=== PATIENT | male | born 1930 | race Caucasian/White ===

== ENCOUNTER 2017-03-13 18:31 | Inpatient (IN) | payer MEDICARE, BC ==
[2017-03-13] MEDS ORDERED: Sodium Chloride 0.9% 10 ML Syringe FLUSH PRN (18:54)
[2017-03-13] MEDS ORDERED: Sodium Chloride 0.9% 2.5 ML Syringe FLUSH PRN (18:54)
[2017-03-13] MEDS ORDERED: Ondansetron 4 MG/2 ML SDV IVPUSH ONE (18:54)
[2017-03-13] MEDS ORDERED: Sodium Chloride 0.9% 1,000 ML IV SCH (19:00)
--- NOTE | 2017-03-13 19:00 | EDM.PDOC ---
ED HPI GENERAL MEDICAL PROBLEM - General Chief Complaint: Cardiovascular Problem Stated Complaint: FLU SYMPTOMS Time Seen by Provider: 03/13/17 18:41 - History of Present Illness INITIAL COMMENTS - FREE TEXT/NARRATIVE: HISTORY AND PHYSICAL: History of present illness: The patient is an 86-year-old male who follows at [facility] as well as with a dietary tech at [facility] with a history of CABG ASHD diabetes hypertension and deficiency anemia and hypercholesterolemia and presents via EMS with complaints of 24 hours of feeling rundown generalized weakness and "flulike symptoms". The patient and are the historian and they state state that he seems to feel fine yesterday during the day and that the symptoms started last evening with generalized malaise some nausea and several episodes of vomiting and some left-sided abdominal pain. He has been passing his urine but it is been very dark in color and he says it always hurts to pass urine that is not new. His last bowel movement was day before yesterday and it was very hard and he has a history of intermittent constipation. He denies any chest pain or shortness of breath and has no cough that is new or upper respiratory symptoms. The patient has a history of chronic lower extremity edema for which he takes Bumetamide 1 mg daily And the states that his lower extremities are not discernibly more edematous than usual and he always has some edema of bilateral hands again the states this is not necessarily new or different. The patient has a chronic umbilical hernia which he says is not different in size for more tender than usual. The patient denies any recent falls dizziness or lightheadedness but the states that today he was really unable to get up and transfer due to the generalized weakness. The patient denies any head neck or back pain and has no extremity complaints per se. The patient has been trying to take fluids but he has not taken very much in the last 24 hours. The patient denies any falls with this generalized weakness. Please note that the patient also has a history of a defibrillator that is in place. Review of systems: As per history of present illness and below otherwise all systems reviewed and negative. Past medical history: As per history of present illness and as reviewed below otherwise noncontributory. Surgical history: As per history of present illness and as reviewed below otherwise noncontributory. Social history: No reported history of drug or alcohol abuse. Family history: As per history of present illness and as reviewed below otherwise noncontributory. Physical exam: General: Well-developed overweight male who is nontoxic and is mildly hard of hearing. Vital signs been noted by me. HEENT: Atraumatic, normocephalic, pupils reactive, negative for conjunctival pallor or scleral icterus, mucous membranes very dry, throat clear, neck supple , nontender, trachea midline. Lungs: Clear to auscultation, breath sounds equal bilaterally, chest nontender.No work of breathing or sensory muscle use. Defibrillator is appreciated in the chest wall. Heart: S1S2, regular, negative for clicks, rubs, or JVD. Abdomen: Soft, nondistended, bowel sounds are hypoactive. There is a soft nontender umbilical hernia appreciated which the patient states is not enlarged or different than usual. There is some mild tenderness to deep palpation along the left side of the upper abdomen without rebound or guarding and there is also some right sided lower abdominal discomfort which is mild on palpation and there is no rebound or guarding. Negative for masses or hepatosplenomegaly. Negative for costovertebral tenderness. Pelvis: Stable nontender. Genitourinary: Deferred. Rectal: Deferred. Extremities: Atraumatic, negative for cords or calf pain. Neurovascular unremarkable.The patient has brawny edema to his knees with chronic skin changes bilaterally right greater than left, which the states is not new or different and the right leg is always slightly bigger than the left due to the vein harvest from that leg. Neuro: Awake, alert, oriented. Cranial nerves II through XII unremarkable. sensory unremarkable throughout. Exam nonfocal. Upper extremities have a strength 4/5 in the patient is able to utilize his arms to lift himself in bed but his lower extremities are 2-3/5 and he has difficulty raising his legs or bending his knees without any assistance. Back: There are no midline step-offs tenderness defects of the thoracic or lumbar spine no CVA tenderness or posterior rib tenderness and no soft tissue changes. Diagnostics: EKG CBC CMP amylase lipase BNP lactic acid troponin UA urine culture blood cultures 2 chest x-ray CT scan of the abdomen and pelvis Please note that today's EKG was compared to one performed on May 03, 2016 Therapeutics: IV O2 monitor gentle IV fluids Zofran Levaquin All testing results were discussed with the family at bedside as the patient is asleep. According to the family they're not telling me that his symptoms have been ongoing for the last 3 or more days with generalized weakness poor by mouth intake and inability to get up and move around. I've advised him of all the testing results and the plan for admission. 2110: Case was discussed with our hospitalist ; he requests a dose of Levaquin 750 mg be given an admission as an inpatient. Impression: Pneumonia and dehydration Definitive disposition and diagnosis as appropriate pending reevaluation and review of above. - Related Data Allergies Allergy/AdvReac Type Severity Reaction Status Date / Time No Known Allergies Allergy Verified 03/13/17 18:54 Home Meds: Home Meds Bumetanide [Bumex] 1 tab PO DAILY 08/26/14 [History] Carvedilol 1 tab PO BID 08/26/14 [History] Insulin Aspart [Novolog Flexpen] 0 units SUBCUT ASDIRECTED 08/26/14 [History] Insulin Glarg,Human.Rec.Analog [Lantus] 40 unit SUBCUT DAILY 08/26/14 [History] Rosuvastatin [Crestor] 1 tab PO DAILY 08/26/14 [History] Aspirin [Halfprin] 81 mg PO BRK 03/13/17 [History] Losartan [Cozaar] 50 mg PO DAILY 03/13/17 [History] Past Medical History HEENT History: Reports: Hard of Hearing Cardiovascular History: Reports: Automatic Implantable Cardioverter Defibrillators, High Cholesterol, Hypertension Respiratory History: Reports: None Gastrointestinal History: Reports: Other (See Below) Other Gastrointestinal History: "Water on the belly" Genitourinary History: Reports: None Musculoskeletal History: Reports: Arthritis Neurological History: Reports: None Psychiatric History: Reports: None Endocrine/Metabolic History: Reports: Diabetes, Type II Hematologic History: Reports: None Immunologic History: Reports: None Oncologic (Cancer) History: Reports: None Dermatologic History: Reports: None - Infectious Disease History Infectious Disease History: Reports: None - Past Surgical History Musculoskeletal Surgical History: Reports: Other (See Below) Social & Family History - Family History Family Medical History: Noncontributory - Tobacco Use Smoking Status *Q: Never Smoker Second Hand Smoke Exposure: No - Caffeine Use Caffeine Use: Reports: Coffee - Alcohol Use Days Per Week of Alcohol Use: 0 - Recreational Drug Use Recreational Drug Use: No ED ROS GENERAL - Review of Systems Review Of Systems: ROS reveals no pertinent complaints other than HPI. ED EXAM, GENERAL - Physical Exam Exam: See Below (See dictation) Course - Vital Signs Last Recorded V/S: Last Vital Signs Temp 37.1 C 03/13/17 20:19 Pulse 64 03/13/17 20:19 Resp 20 03/13/17 20:19 BP 113/49 L 03/13/17 20:19 Pulse Ox 95 03/13/17 20:19 - Orders/Labs/Meds Orders: Active Orders 24 hr Category Date Time Status Patient Status [ADT] Stat ADT 03/13/17 21:14 Ordered Cardiac Monitoring [RC] . DIRECTED Care 03/13/17 18:53 Active EKG Documentation Completion [RC] STAT Care 03/13/17 18:53 Active Oxygen Therapy, ED [RC] ASDIRECTED Care 03/13/17 18:53 Active Pulse Oximetry [RC] ASDIRECTED Care 03/13/17 18:53 Active Abdomen Pelvis wo Cont [CT] Stat Exams 03/13/17 19:48 Taken Chest 1V Frontal [CR] Stat Exams 03/13/17 18:53 Taken CULTURE BLOOD [BC] Stat Lab 03/13/17 Ordered CULTURE BLOOD [BC] Stat Lab 03/13/17 19:04 Received CULTURE URINE [RM] Stat Lab 03/13/17 19:30 Received Levofloxacin/Dextrose 5%-Water [Levaquin in D5W 750 MG/ Med 03/13/17 21:14 Ordered 150 ML] 750 mg Premix Bag 1 bag IV ONETIME Sodium Chloride 0.9% [Normal Saline] 1,000 ml Med 03/13/17 19:00 Active IV ASDIRECTED Sodium Chloride 0.9% [Saline Flush] Med 03/13/17 18:54 Active 10 ml FLUSH ASDIRECTED PRN Sodium Chloride 0.9% [Saline Flush] Med 03/13/17 18:54 Active 2.5 ml FLUSH ASDIRECTED PRN Blood Culture x2 Reflex Set [OM.PC] Stat Oth 03/13/17 18:53 Ordered Saline Lock Insert [OM.PC] Stat Oth 03/13/17 18:53 Ordered Medication Orders Sodium Chloride (Normal Saline) 1,000 mls @ 83 mls/hr IV ASDIRECTED HUAN Last Admin: 03/13/17 19:12 Dose: 83 mls/hr Sodium Chloride (Saline Flush) 10 ml FLUSH ASDIRECTED PRN PRN Reason: Keep Vein Open Sodium Chloride (Saline Flush) 2.5 ml FLUSH ASDIRECTED PRN PRN Reason: Keep Vein Open Labs: Laboratory Tests 03/13/17 03/13/17 03/13/17 Range/Units 19:04 19:04 19:04 WBC 9.61 (4.0-11.0) K/uL RBC 3.64 L (4.50-5.90) M/uL Hgb 11.4 L (13.0-17.0) g/dL Hct 35.0 L (38.0-50.0) % MCV 96.2 (80.0-98.0) fL MCH 31.3 (27.0-32.0) pg MCHC 32.6 (31.0-37.0) g/dL RDW Std Deviation 51.9 (28.0-62.0) fl RDW Coeff of Anjana 15 (11.0-15.0) % Plt Count 157 (150-400) K/uL MPV 10.20 (7.40-12.00) fL Neut % (Auto) 86.6 H (48.0-80.0) % Lymph % (Auto) 4.5 L (16.0-40.0) % Amador % (Auto) 8.7 (0.0-15.0) % Eos % (Auto) 0.1 (0.0-7.0) % Baso % (Auto) 0.1 (0.0-1.5) % Neut # (Auto) 8.3 H (1.4-5.7) K/uL Lymph # (Auto) 0.4 L (0.6-2.4) K/uL Amador # (Auto) 0.8 (0.0-0.8) K/uL Eos # (Auto) 0.0 (0.0-0.7) K/uL Baso # (Auto) 0.0 (0.0-0.1) K/uL Nucleated RBC % 0.0 /100WBC Nucleated RBCs # 0 K/uL Lactate 1.4 (0.20-2.00) mmol/L Sodium 133 L (136-146) mmol/L Potassium 4.4 (3.5-5.1) mmol/L Chloride 103 (98-110) mmol/L Carbon Dioxide 21 (21-31) mmol/L BUN 34 H (6.0-23.0) mg/dL Creatinine 1.9 H (0.6-1.5) mg/dL Est Cr Clr Drug Dosing 27.91 mL/min Estimated GFR (MDRD) 33.8 ml/min Glucose 147 H (60-110) mg/dL Calcium 8.5 L (8.8-10.8) mg/dL Total Bilirubin 1.1 (0.1-1.5) mg/dL AST 23 (5-40) IU/L ALT 12 (8-54) IU/L Alkaline Phosphatase 103 (40-150) Troponin I (0.0-0.29) NG/ML B-Natriuretic Peptide (<100) PG/ML Total Protein 6.8 (6.0-8.0) g/dL Albumin 3.5 (3.4-4.8) g/dL Globulin 3.3 (2.0-3.5) g/dL Albumin/Globulin Ratio 1.1 L (1.3-2.8) Amylase 24 (10-90) U/L Lipase < 8 (7-80) U/L Urine Color Urine Appearance Urine pH (5.0-8.0) Ur Specific Wildwood (1.001-1.035) Urine Protein (NEGATIVE) mg/dL Urine Glucose (UA) (NEGATIVE) mg/dL Urine Ketones (NEGATIVE) mg/dL Urine Occult Blood (NEGATIVE) Urine Nitrite (NEGATIVE) Urine Bilirubin (NEGATIVE) Urine Urobilinogen (<2.0) EU/dL Ur Leukocyte Esterase (NEGATIVE) Urine RBC (0-2/HPF) Urine WBC (0-5/HPF) Ur Epithelial Cells (NONE-FEW) Amorphous Sediment (NEGATIVE) Urine Bacteria (NEGATIVE) Hyaline Casts (0-2/LPF) Urine Mucus (NONE-MOD) 03/13/17 03/13/17 03/13/17 Range/Units 19:04 19:04 19:30 WBC (4.0-11.0) K/uL RBC (4.50-5.90) M/uL Hgb (13.0-17.0) g/dL Hct (38.0-50.0) % MCV (80.0-98.0) fL MCH (27.0-32.0) pg MCHC (31.0-37.0) g/dL RDW Std Deviation (28.0-62.0) fl RDW Coeff of Anjana (11.0-15.0) % Plt Count (150-400) K/uL MPV (7.40-12.00) fL Neut % (Auto) (48.0-80.0) % Lymph % (Auto) (16.0-40.0) % Amador % (Auto) (0.0-15.0) % Eos % (Auto) (0.0-7.0) % Baso % (Auto) (0.0-1.5) % Neut # (Auto) (1.4-5.7) K/uL Lymph # (Auto) (0.6-2.4) K/uL Amador # (Auto) (0.0-0.8) K/uL Eos # (Auto) (0.0-0.7) K/uL Baso # (Auto) (0.0-0.1) K/uL Nucleated RBC % /100WBC Nucleated RBCs # K/uL Lactate (0.20-2.00) mmol/L Sodium (136-146) mmol/L Potassium (3.5-5.1) mmol/L Chloride (98-110) mmol/L Carbon Dioxide (21-31) mmol/L BUN (6.0-23.0) mg/dL Creatinine (0.6-1.5) mg/dL Est Cr Clr Drug Dosing mL/min Estimated GFR (MDRD) ml/min Glucose (60-110) mg/dL Calcium (8.8-10.8) mg/dL Total Bilirubin (0.1-1.5) mg/dL AST (5-40) IU/L ALT (8-54) IU/L Alkaline Phosphatase (40-150) Troponin I < 0.10 (0.0-0.29) NG/ML B-Natriuretic Peptide 942 H (<100) PG/ML Total Protein (6.0-8.0) g/dL Albumin (3.4-4.8) g/dL Globulin (2.0-3.5) g/dL Albumin/Globulin Ratio (1.3-2.8) Amylase (10-90) U/L Lipase (7-80) U/L Urine Color YELLOW Urine Appearance CLEAR Urine pH 5.5 (5.0-8.0) Ur Specific [place] 1.020 (1.001-1.035) Urine Protein TRACE (NEGATIVE) mg/dL Urine Glucose (UA) NEGATIVE (NEGATIVE) mg/dL Urine Ketones NEGATIVE (NEGATIVE) mg/dL Urine Occult Blood SMALL H (NEGATIVE) Urine Nitrite NEGATIVE (NEGATIVE) Urine Bilirubin NEGATIVE (NEGATIVE) Urine Urobilinogen 0.2 (<2.0) EU/dL Ur Leukocyte Esterase NEGATIVE (NEGATIVE) Urine RBC 0-2 (0-2/HPF) Urine WBC 1-3 (0-5/HPF) Ur Epithelial Cells OCCASIONAL (NONE-FEW) Amorphous Sediment FEW (NEGATIVE) Urine Bacteria FEW (NEGATIVE) Hyaline Casts 0-2 (0-2/LPF) Urine Mucus FEW (NONE-MOD) Meds: Medications Generic Name Dose Route Start Last Admin Trade Name Freq PRN Reason Stop Dose Admin Sodium Chloride 1,000 mls @ 83 mls/hr 03/13/17 19:00 03/13/17 19:12 Normal Saline IV 83 mls/hr ASDIRECTED HUAN Administration Sodium Chloride 10 ml 03/13/17 18:54 Saline Flush FLUSH ASDIRECTED PRN Keep Vein Open Sodium Chloride 2.5 ml 03/13/17 18:54 Saline Flush FLUSH ASDIRECTED PRN Keep Vein Open Discontinued Medications Generic Name Dose Route Start Last Admin Trade Name Freq PRN Reason Stop Dose Admin Ondansetron HCl 4 mg 03/13/17 18:54 03/13/17 19:12 Zofran IVPUSH 03/13/17 18:55 4 mg ONETIME ONE Administration Departure - Departure Time of Disposition: 21:17 Disposition: Admitted As Inpatient 66 Condition: Fair Clinical Impression: Dehydration Pneumonia Qualifiers: Pneumonia type: due to unspecified organism Laterality: right Lung location: middle lobe of lung Qualified Code(s): J18.1 - Lobar pneumonia, unspecified organism Forms: ED Department Discharge - My Orders Last 24 Hours: My Active Orders 03/13/17 CULTURE BLOOD [BC] Stat 03/13/17 18:53 Cardiac Monitoring [RC] . DIRECTED EKG Documentation Completion [RC] STAT Oxygen Therapy, ED [RC] ASDIRECTED Pulse Oximetry [RC] ASDIRECTED Chest 1V Frontal [CR] Stat Blood Culture x2 Reflex Set [OM.PC] Stat Saline Lock Insert [OM.PC] Stat 03/13/17 18:54 Sodium Chloride 0.9% [Saline Flush] 10 ml FLUSH ASDIRECTED PRN Sodium Chloride 0.9% [Saline Flush] 2.5 ml FLUSH ASDIRECTED PRN 03/13/17 19:00 Sodium Chloride 0.9% [Normal Saline] 1,000 ml IV ASDIRECTED 03/13/17 19:04 CULTURE BLOOD [BC] Stat 03/13/17 19:30 CULTURE URINE [RM] Stat 03/13/17 19:48 Abdomen Pelvis wo Cont [CT] Stat 03/13/17 21:14 Patient Status [ADT] Stat Levofloxacin/Dextrose 5%-Water [Levaquin in D5W 750 MG/150 ML] 750 mg Premix Bag 1 bag IV ONETIME - Assessment/Plan Last 24 Hours: My Active Orders 03/13/17 CULTURE BLOOD [BC] Stat 03/13/17 18:53 Cardiac Monitoring [RC] . DIRECTED EKG Documentation Completion [RC] STAT Oxygen Therapy, ED [RC] ASDIRECTED Pulse Oximetry [RC] ASDIRECTED Chest 1V Frontal [CR] Stat Blood Culture x2 Reflex Set [OM.PC] Stat Saline Lock Insert [OM.PC] Stat 03/13/17 18:54 Sodium Chloride 0.9% [Saline Flush] 10 ml FLUSH ASDIRECTED PRN Sodium Chloride 0.9% [Saline Flush] 2.5 ml FLUSH ASDIRECTED PRN 03/13/17 19:00 Sodium Chloride 0.9% [Normal Saline] 1,000 ml IV ASDIRECTED 03/13/17 19:04 CULTURE BLOOD [BC] Stat 03/13/17 19:30 CULTURE URINE [RM] Stat 03/13/17 19:48 Abdomen Pelvis wo Cont [CT] Stat 03/13/17 21:14 Patient Status [ADT] Stat Levofloxacin/Dextrose 5%-Water [Levaquin in D5W 750 MG/150 ML] 750 mg Premix Bag 1 bag IV ONETIME
[2017-03-13 19:38] LABS: CHLORIDE,CL 103 mmol/L (98-110); SODIUM,NA 133 mmol/L (136-146)
[2017-03-13] MEDS ORDERED: Levofloxacin/Dextrose 5%-Water 750 MG in Premix Bag 1 BAG IV ONE (21:14)
[2017-03-13] MEDS ORDERED: Levofloxacin/Dextrose 5%-Water 150 ML IV ONE (21:17)
--- NOTE | 2017-03-13 22:08 | PCM.HP ---
H&P History of Present Illness - General Date of Service: 03/13/17 Admit Problem/Dx: Admission Diagnosis/Problem Admission Diagnosis/Problem Pneumonia Source of Information: Patient, Family, Provider, RN - History of Present Illness Initial Comments - Free Text/Narative: He presented to the ED today with complaint of weakness and increased confusion. His states that although he has never been formally diagnosed as having dementia, he has periods of confusion and he has trouble with memory. His thinks that he had a fever at home.He vomited yesterday. - Related Data Allergies/Adverse Reactions: Allergies Allergy/AdvReac Type Severity Reaction Status Date / Time No Known Allergies Allergy Verified 03/13/17 18:54 Home Medications: Home Meds Bumetanide [Bumex] 1 tab PO DAILY 08/26/14 [History] Carvedilol 1 tab PO BID 08/26/14 [History] Insulin Aspart [Novolog Flexpen] 0 units SUBCUT ASDIRECTED 08/26/14 [History] Insulin Glarg,Human.Rec.Analog [Lantus] 40 unit SUBCUT DAILY 08/26/14 [History] Rosuvastatin [Crestor] 1 tab PO DAILY 08/26/14 [History] Aspirin [Halfprin] 81 mg PO BRK 03/13/17 [History] Losartan [Cozaar] 50 mg PO DAILY 03/13/17 [History] Past Medical History HEENT History: Reports: Hard of Hearing Cardiovascular History: Reports: Automatic Implantable Cardioverter Defibrillators, High Cholesterol, Hypertension Respiratory History: Reports: None Gastrointestinal History: Reports: Other (See Below) Other Gastrointestinal History: "Water on the belly" Genitourinary History: Reports: None Musculoskeletal History: Reports: Arthritis Neurological History: Reports: None Psychiatric History: Reports: None Endocrine/Metabolic History: Reports: Diabetes, Type II Hematologic History: Reports: None Immunologic History: Reports: None Oncologic (Cancer) History: Reports: None Dermatologic History: Reports: None - Infectious Disease History Infectious Disease History: Reports: None - Past Surgical History Musculoskeletal Surgical History: Reports: Other (See Below) Social & Family History - Family History Family Medical History: Noncontributory - Tobacco Use Smoking Status *Q: Never Smoker Second Hand Smoke Exposure: No - Caffeine Use Caffeine Use: Reports: Coffee - Alcohol Use Days Per Week of Alcohol Use: 0 Alcohol Use in Last Twelve Months: No - Recreational Drug Use Recreational Drug Use: No H&P Review of Systems - Review of Systems: Review Of Systems: See Below General: Reports: Fever, Chills Pulmonary: Reports: Cough (mild) Cardiovascular: Denies: Chest Pain, Palpitations Gastrointestinal: Reports: Abdominal Pain (some pain with palpation but no pain otherwise). Denies: Anorexia, Black Stool, Bloody Stool, Hematemesis, Hematochezia, Nausea, Stool Incontinence, Vomiting Genitourinary: Reports: Dysuria. Denies: Hematuria Skin: Denies: Jaundice Psychiatric: Denies: Confusion, Depression Neurological: Reports: Confusion Exam - Exam Exam: See Below - Vital Signs Vital Signs: Last Vital Signs Temp 98.7 F 03/13/17 21:32 Pulse 60 03/13/17 21:32 Resp 20 03/13/17 21:32 BP 123/45 L 03/13/17 21:32 Pulse Ox 97 03/13/17 21:32 Weight: 135.5 kg - Exam General: Alert, Cooperative HEENT: EOMI (slight right eyelid ptosis) Lungs: Clear to Auscultation, Normal Respiratory Effort Cardiovascular: Regular Rate, Regular Rhythm. No: Systolic Murmur, Diastolic Murmur Abdomen: Soft, Tenderness (mild lower diffuse abdominal tenderness). No: Distention (Male) Exam: Normal Inspection. No: Circumcised Rectal (Males) Exam: Deferred Extremities: Edema, Other (marked skin thickening and discoloration c/w chronic venous stasis) Neurological: Normal Speech Neuro Extensive - Mental Status: Alert, Normal Mood/Affect Neuro Extensive - Motor, Sensory, Reflexes: No: Expressive Aphasia, Facial palsy (L), Facial Palsy (R), Hemeplagia (R), Hemeplagia (L) Psychiatric: Alert, Normal Affect. No: Depressed, Agitated - Patient Data Result Diagrams: 03/13/17 19:04 03/13/17 19:04 *Q Meaningful Use (ADM) - VTE *Q VTE Criteria *Q: - Stroke *Q Stroke Criteria *Q: - AMI *Q AMI Criteria *Q: - Problem List (1) Pneumonia SNOMED Code(s): 114577255 ICD Code: J18.9 - PNEUMONIA, UNSPECIFIED ORGANISM Status: Acute Current Visit: Yes Qualifiers: Pneumonia type: due to unspecified organism Laterality: right Lung location: middle lobe of lung Qualified Code(s): J18.1 - Lobar pneumonia, unspecified organism Problem List Initiated/Reviewed/Updated: Yes Orders Last 24hrs: Medication Orders Sodium Chloride (Normal Saline) 1,000 mls @ 83 mls/hr IV ASDIRECTED HUAN Last Admin: 03/13/17 19:12 Dose: 83 mls/hr Levofloxacin/Dextrose 750 mg/ (Premix) 150 mls @ 100 mls/hr IV ONETIME ONE Stop: 03/13/17 22:43 Last Admin: 03/13/17 21:23 Dose: 100 mls/hr Sodium Chloride (Saline Flush) 10 ml FLUSH ASDIRECTED PRN PRN Reason: Keep Vein Open Sodium Chloride (Saline Flush) 2.5 ml FLUSH ASDIRECTED PRN PRN Reason: Keep Vein Open Assessment/Plan Comment:: CXR: cardiomegaly; right sided infiltrate
[2017-03-13] MEDS ORDERED: Morphine 10 MG/ML Syringe IVPUSH PRN (22:16)
[2017-03-13] MEDS ORDERED: Ondansetron 4 MG Tab.DIS PO PRN (22:16)
[2017-03-13] MEDS ORDERED: LORazepam 2 MG/ML MDV IV PRN (22:16)
[2017-03-13] MEDS ORDERED: Temazepam 15 MG Cap PO PRN (22:16)
[2017-03-13] MEDS ORDERED: Bisacodyl 5 MG Tab PO PRN (22:16)
[2017-03-13] MEDS ORDERED: Acetaminophen 325 MG Tab PO PRN (22:16)
[2017-03-13] MEDS: Insulin Aspart 100 Units/ML 3 ML Pen SUBCUT SCH (22:57)
[2017-03-13] MEDS: Aspirin 81 MG Tab.EC PO SCH (23:05)
[2017-03-13] MEDS: Heparin Sodium 5,000 Units/ML Vial SUBCUT SCH (23:05)
[2017-03-14] MEDS: Sodium Chloride 0.9% 1,000 ML IV SCH ×2 (01:49→14:15)
[2017-03-14] MEDS: Insulin Aspart 100 Units/ML 3 ML Pen SUBCUT SCH ×4 (06:42→21:57)
[2017-03-14] MEDS: Heparin Sodium 5,000 Units/ML Vial SUBCUT SCH ×3 (07:23→21:53)
[2017-03-14] MEDS: Docusate Sodium 100 MG Cap PO SCH ×2 (08:05→21:53)
[2017-03-14] MEDS: Aspirin 81 MG Tab.EC PO SCH (08:05)
[2017-03-14] MEDS: Carvedilol 25 MG Tab PO SCH ×2 (08:06→21:52)
[2017-03-14] MEDS: Losartan 50 MG Tab PO SCH (08:06)
[2017-03-14] MEDS: Rosuvastatin 10 MG Tab PO SCH (08:07)
[2017-03-14] MEDS: Insulin Glargine,Human Rec. Analog 100 Units/ML 3 ML Pen SUBCUT SCH (08:53)
--- NOTE | 2017-03-14 10:34 | PCM.PN ---
- General Info Date of Service: 03/14/17 - Review of Systems General: Reports: No Symptoms HEENT: Reports: no symptoms Pulmonary: Reports: no symptoms Cardiovascular: Reports: No Symptoms Gastrointestinal: Reports: No symptoms Genitourinary: Reports: no symptoms Musculoskeletal: Reports: no symptoms Skin: Reports: no symptoms Neurological: Reports: No Symptoms Psychiatric: Reports: no symptoms - Patient Data Vitals - most recent: Last Vital Signs Temp 98.1 F 03/14/17 08:37 Pulse 60 03/14/17 08:37 Resp 20 03/14/17 08:37 BP 122/100 H 03/14/17 08:37 Pulse Ox 95 03/14/17 08:37 Weight - most recent: 135.5 kg I&O - last 24 hours: Intake & Output 03/13/17 03/14/17 03/14/17 22:59 06:59 14:59 Intake Total 250 Output Total 200 Balance 50 Lab Results last 24 hrs: Laboratory Results - last 24 hr 03/13/17 03/14/17 03/14/17 Range/Units 22:56 06:05 06:05 WBC 7.28 (4.0-11.0) K/uL RBC 3.17 L (4.50-5.90) M/uL Hgb 9.9 L (13.0-17.0) g/dL Hct 31.0 L (38.0-50.0) % MCV 97.8 (80.0-98.0) fL MCH 31.2 (27.0-32.0) pg MCHC 31.9 (31.0-37.0) g/dL RDW Std Deviation 53.5 (28.0-62.0) fl RDW Coeff of Anjana 15 (11.0-15.0) % Plt Count 145 L (150-400) K/uL MPV 10.30 (7.40-12.00) fL Add Manual Diff YES Neutrophils % (Manual) 70 (48.0-80.0) % Band Neutrophils % 6 % Lymphocytes % (Manual) 13 L (16.0-40.0) % Monocytes % (Manual) 10 (0.0-15.0) % Eosinophils % (Manual) 1 (0.0-7.0) % Nucleated RBC % 0.0 /100WBC Absolute Seg Neuts 5.1 Band Neutrophils # 0.4 Lymphocytes # (Manual) 0.9 Monocytes # (Manual) 0.7 Eosinophils # (Manual) 0.1 Nucleated RBCs # 0 K/uL Sodium 133 L (136-146) mmol/L Potassium 4.3 (3.5-5.1) mmol/L Chloride 107 (98-110) mmol/L Carbon Dioxide 20 L (21-31) mmol/L BUN 35 H (6.0-23.0) mg/dL Creatinine 2.0 H (0.6-1.5) mg/dL Est Cr Clr Drug Dosing 26.42 mL/min Estimated GFR (MDRD) 31.8 ml/min Glucose 102 (60-110) mg/dL POC Glucose 143 H (60-110) mg/dL Calcium 8.0 L (8.8-10.8) mg/dL Magnesium 1.5 (1.5-2.3) mEq/L 03/14/17 Range/Units 06:37 WBC (4.0-11.0) K/uL RBC (4.50-5.90) M/uL Hgb (13.0-17.0) g/dL Hct (38.0-50.0) % MCV (80.0-98.0) fL MCH (27.0-32.0) pg MCHC (31.0-37.0) g/dL RDW Std Deviation (28.0-62.0) fl RDW Coeff of Anjana (11.0-15.0) % Plt Count (150-400) K/uL MPV (7.40-12.00) fL Add Manual Diff Neutrophils % (Manual) (48.0-80.0) % Band Neutrophils % % Lymphocytes % (Manual) (16.0-40.0) % Monocytes % (Manual) (0.0-15.0) % Eosinophils % (Manual) (0.0-7.0) % Nucleated RBC % /100WBC Absolute Seg Neuts Band Neutrophils # Lymphocytes # (Manual) Monocytes # (Manual) Eosinophils # (Manual) Nucleated RBCs # K/uL Sodium (136-146) mmol/L Potassium (3.5-5.1) mmol/L Chloride (98-110) mmol/L Carbon Dioxide (21-31) mmol/L BUN (6.0-23.0) mg/dL Creatinine (0.6-1.5) mg/dL Est Cr Clr Drug Dosing mL/min Estimated GFR (MDRD) ml/min Glucose (60-110) mg/dL POC Glucose 98 (60-110) mg/dL Calcium (8.8-10.8) mg/dL Magnesium (1.5-2.3) mEq/L Med Orders - Current: Current Medications Acetaminophen (Tylenol) 650 mg PO Q4H PRN PRN Reason: Pain (Mild 1-3)/fever Aspirin (Halfprin) 81 mg PO BRK [facility] Last Admin: 03/14/17 08:05 Dose: 81 mg Bisacodyl (Dulcolax) 5 mg PO DAILY PRN PRN Reason: Constipation Carvedilol (Coreg) 25 mg PO BID [facility] Last Admin: 03/14/17 08:06 Dose: 25 mg Docusate Sodium (Colace) 100 mg PO BID [facility] Last Admin: 03/14/17 08:05 Dose: 100 mg Heparin Sodium (Porcine) (Heparin Sodium) 5,000 units SUBCUT Q8H [facility] Last Admin: 03/14/17 07:23 Dose: 5,000 units Levofloxacin/Dextrose 750 mg/ (Premix) 150 mls @ 100 mls/hr IV Q48H [facility] Sodium Chloride (Normal Saline) 1,000 mls @ 75 mls/hr IV ASDIRECTED [facility] Last Admin: 03/14/17 01:49 Dose: 75 mls/hr Insulin Aspart (Novolog) 0 unit SUBCUT ACBED [facility] PRN Reason: Protocol Last Admin: 03/14/17 06:42 Dose: Not Given Insulin Glargine (Lantus Solostar) 0 units SUBCUT DAILY [facility] Last Admin: 03/14/17 08:53 Dose: Not Given Lorazepam (Ativan) 1 mg IV Q6H PRN PRN Reason: Nausea/Vomiting Losartan Potassium (Cozaar) 50 mg PO DAILY [facility] Last Admin: 03/14/17 08:06 Dose: 50 mg Morphine Sulfate (Morphine) 2 mg IVPUSH Q2H PRN PRN Reason: Pain (severe 7-10) Stop: 03/14/17 22:17 Ondansetron HCl (Zofran Odt) 4 mg PO Q4H PRN PRN Reason: nausea, able to take PO Rosuvastatin Calcium (Crestor) 40 mg PO DAILY [facility] Last Admin: 03/14/17 08:07 Dose: 40 mg Sodium Chloride (Saline Flush) 10 ml FLUSH ASDIRECTED PRN PRN Reason: Keep Vein Open Sodium Chloride (Saline Flush) 2.5 ml FLUSH ASDIRECTED PRN PRN Reason: Keep Vein Open Temazepam (Restoril) 15 mg PO BEDTIME PRN PRN Reason: Sleep Discontinued Medications Sodium Chloride (Normal Saline) 1,000 mls @ 83 mls/hr IV ASDIRECTED [facility] Last Admin: 03/13/17 19:12 Dose: 83 mls/hr Levofloxacin/Dextrose 750 mg/ (Premix) 150 mls @ 100 mls/hr IV ONETIME ONE Stop: 03/13/17 22:43 Last Admin: 03/13/17 21:23 Dose: 100 mls/hr Levofloxacin/Dextrose (Levaquin In D5w 750 Mg/150 Ml) Confirm Administered Dose 150 mls @ as directed IV .STK-MED ONE Stop: 03/13/17 21:18 Last Admin: 03/13/17 21:24 Dose: Not Given Ondansetron HCl (Zofran) 4 mg IVPUSH ONETIME ONE Stop: 03/13/17 18:55 Last Admin: 03/13/17 19:12 Dose: 4 mg - Exam General: alert, cooperative HEENT: Pupils equal, EOMI Neck: supple, trachea midline Lungs: Clear to auscultation, Normal respiratory effort Cardiovascular: Regular Rate, Regular Rhythm Abdomen: bowel sounds present, soft Back Exam: Normal Inspection, Full Range of Motion Extremities: no edema Skin: warm, dry, intact Neurological: no new focal deficit Psy/Mental Status: alert, normal affect, normal mood - Problem List Review Problem List Initiated/Reviewed/Updated: Yes - Plan Plan:: CXR: cardiomegaly; right sided infiltrate: on levaquin.
[2017-03-15] MEDS: Sodium Chloride 0.9% 1,000 ML IV SCH ×2 (03:55→16:23)
[2017-03-15] MEDS: Insulin Aspart 100 Units/ML 3 ML Pen SUBCUT SCH ×4 (06:40→21:16)
[2017-03-15] MEDS: Heparin Sodium 5,000 Units/ML Vial SUBCUT SCH ×3 (06:45→21:54)
[2017-03-15] MEDS: Aspirin 81 MG Tab.EC PO SCH (08:00)
[2017-03-15] MEDS: Docusate Sodium 100 MG Cap PO SCH ×2 (08:00→21:22)
[2017-03-15] MEDS: Carvedilol 25 MG Tab PO SCH ×2 (08:00→21:07)
[2017-03-15] MEDS: Rosuvastatin 10 MG Tab PO SCH (08:01)
[2017-03-15] MEDS: Losartan 50 MG Tab PO SCH (08:01)
[2017-03-15] MEDS: Insulin Glargine,Human Rec. Analog 100 Units/ML 3 ML Pen SUBCUT SCH (09:37)
--- NOTE | 2017-03-15 13:07 | PCM.PN ---
- General Info Date of Service: 03/15/17 Subjective Update: he states that he is feeling much better. - Patient Data Vitals - most recent: Last Vital Signs Temp 96 F 03/15/17 11:42 Pulse 60 03/15/17 11:42 Resp 18 03/15/17 11:42 BP 128/55 L 03/15/17 11:42 Pulse Ox 97 03/15/17 11:42 Weight - most recent: 303 kg I&O - last 24 hours: Intake & Output 03/14/17 03/15/17 03/15/17 22:59 06:59 14:59 Intake Total 1300 1349 Output Total 500 700 Balance 800 649 Lab Results last 24 hrs: Laboratory Results - last 24 hr 03/14/17 03/14/17 03/15/17 Range/Units 16:53 21:55 05:20 WBC 4.96 (4.0-11.0) K/uL RBC 3.31 L (4.50-5.90) M/uL Hgb 10.2 L (13.0-17.0) g/dL Hct 32.5 L (38.0-50.0) % MCV 98.2 H (80.0-98.0) fL MCH 30.8 (27.0-32.0) pg MCHC 31.4 (31.0-37.0) g/dL RDW Std Deviation 53.5 (28.0-62.0) fl RDW Coeff of Anjana 15 (11.0-15.0) % Plt Count 138 L (150-400) K/uL MPV 10.40 (7.40-12.00) fL Add Manual Diff YES Neutrophils % (Manual) 51 (48.0-80.0) % Band Neutrophils % 4 % Lymphocytes % (Manual) 26 (16.0-40.0) % Monocytes % (Manual) 11 (0.0-15.0) % Eosinophils % (Manual) 8 H (0.0-7.0) % Nucleated RBC % 0.0 /100WBC Absolute Seg Neuts 2.5 Band Neutrophils # 0.2 Lymphocytes # (Manual) 1.3 Monocytes # (Manual) 0.5 Eosinophils # (Manual) 0.4 Nucleated RBCs # 0 K/uL Sodium (136-146) mmol/L Potassium (3.5-5.1) mmol/L Chloride (98-110) mmol/L Carbon Dioxide (21-31) mmol/L BUN (6.0-23.0) mg/dL Creatinine (0.6-1.5) mg/dL Est Cr Clr Drug Dosing mL/min Estimated GFR (MDRD) ml/min Glucose (60-110) mg/dL POC Glucose 166 H 170 H (60-110) mg/dL Calcium (8.8-10.8) mg/dL Magnesium (1.5-2.3) mEq/L 03/15/17 03/15/17 03/15/17 Range/Units 05:20 06:39 08:45 WBC (4.0-11.0) K/uL RBC (4.50-5.90) M/uL Hgb (13.0-17.0) g/dL Hct (38.0-50.0) % MCV (80.0-98.0) fL MCH (27.0-32.0) pg MCHC (31.0-37.0) g/dL RDW Std Deviation (28.0-62.0) fl RDW Coeff of Anjana (11.0-15.0) % Plt Count (150-400) K/uL MPV (7.40-12.00) fL Add Manual Diff Neutrophils % (Manual) (48.0-80.0) % Band Neutrophils % % Lymphocytes % (Manual) (16.0-40.0) % Monocytes % (Manual) (0.0-15.0) % Eosinophils % (Manual) (0.0-7.0) % Nucleated RBC % /100WBC Absolute Seg Neuts Band Neutrophils # Lymphocytes # (Manual) Monocytes # (Manual) Eosinophils # (Manual) Nucleated RBCs # K/uL Sodium 135 L (136-146) mmol/L Potassium 4.6 (3.5-5.1) mmol/L Chloride 109 (98-110) mmol/L Carbon Dioxide 18 L (21-31) mmol/L BUN 39 H (6.0-23.0) mg/dL Creatinine 1.7 H (0.6-1.5) mg/dL Est Cr Clr Drug Dosing 31.09 mL/min Estimated GFR (MDRD) 38.4 ml/min Glucose 163 H (60-110) mg/dL POC Glucose 148 H 256 H (60-110) mg/dL Calcium 8.1 L (8.8-10.8) mg/dL Magnesium 1.7 (1.5-2.3) mEq/L 03/15/17 Range/Units 11:09 WBC (4.0-11.0) K/uL RBC (4.50-5.90) M/uL Hgb (13.0-17.0) g/dL Hct (38.0-50.0) % MCV (80.0-98.0) fL MCH (27.0-32.0) pg MCHC (31.0-37.0) g/dL RDW Std Deviation (28.0-62.0) fl RDW Coeff of Anjana (11.0-15.0) % Plt Count (150-400) K/uL MPV (7.40-12.00) fL Add Manual Diff Neutrophils % (Manual) (48.0-80.0) % Band Neutrophils % % Lymphocytes % (Manual) (16.0-40.0) % Monocytes % (Manual) (0.0-15.0) % Eosinophils % (Manual) (0.0-7.0) % Nucleated RBC % /100WBC Absolute Seg Neuts Band Neutrophils # Lymphocytes # (Manual) Monocytes # (Manual) Eosinophils # (Manual) Nucleated RBCs # K/uL Sodium (136-146) mmol/L Potassium (3.5-5.1) mmol/L Chloride (98-110) mmol/L Carbon Dioxide (21-31) mmol/L BUN (6.0-23.0) mg/dL Creatinine (0.6-1.5) mg/dL Est Cr Clr Drug Dosing mL/min Estimated GFR (MDRD) ml/min Glucose (60-110) mg/dL POC Glucose 278 H (60-110) mg/dL Calcium (8.8-10.8) mg/dL Magnesium (1.5-2.3) mEq/L Fredy Results last 24 hrs: Microbiology 03/13/17 21:26 Aerobic Blood Culture - Preliminary Blood - Venous - Lab Draw NO GROWTH AFTER 1 DAY Anaerobic Blood Culture - Preliminary NO GROWTH AFTER 1 DAY Med Orders - Current: Current Medications Acetaminophen (Tylenol) 650 mg PO Q4H PRN PRN Reason: Pain (Mild 1-3)/fever Aspirin (Halfprin) 81 mg PO BRK [facility] Last Admin: 03/15/17 08:00 Dose: 81 mg Bisacodyl (Dulcolax) 5 mg PO DAILY PRN PRN Reason: Constipation Carvedilol (Coreg) 25 mg PO BID [facility] Last Admin: 03/15/17 08:00 Dose: 25 mg Docusate Sodium (Colace) 100 mg PO BID [facility] Last Admin: 03/15/17 08:00 Dose: 100 mg Heparin Sodium (Porcine) (Heparin Sodium) 5,000 units SUBCUT Q8H [facility] Last Admin: 03/15/17 06:45 Dose: 5,000 units Levofloxacin/Dextrose 750 mg/ (Premix) 150 mls @ 100 mls/hr IV Q48H [facility] Sodium Chloride (Normal Saline) 1,000 mls @ 75 mls/hr IV ASDIRECTED [facility] Last Admin: 03/15/17 03:55 Dose: 75 mls/hr Insulin Aspart (Novolog) 0 unit SUBCUT ACBED [facility] PRN Reason: Protocol Last Admin: 03/15/17 11:32 Dose: 6 units Insulin Glargine (Lantus Solostar) 0 units SUBCUT DAILY [facility] Last Admin: 03/15/17 09:37 Dose: 40 units Lorazepam (Ativan) 1 mg IV Q6H PRN PRN Reason: Nausea/Vomiting Losartan Potassium (Cozaar) 50 mg PO DAILY [facility] Last Admin: 03/15/17 08:01 Dose: 50 mg Ondansetron HCl (Zofran Odt) 4 mg PO Q4H PRN PRN Reason: nausea, able to take PO Rosuvastatin Calcium (Crestor) 40 mg PO DAILY [facility] Last Admin: 03/15/17 08:01 Dose: 40 mg Sodium Chloride (Saline Flush) 10 ml FLUSH ASDIRECTED PRN PRN Reason: Keep Vein Open Sodium Chloride (Saline Flush) 2.5 ml FLUSH ASDIRECTED PRN PRN Reason: Keep Vein Open Temazepam (Restoril) 15 mg PO BEDTIME PRN PRN Reason: Sleep Discontinued Medications Sodium Chloride (Normal Saline) 1,000 mls @ 83 mls/hr IV ASDIRECTED [facility] Last Admin: 03/13/17 19:12 Dose: 83 mls/hr Levofloxacin/Dextrose 750 mg/ (Premix) 150 mls @ 100 mls/hr IV ONETIME ONE Stop: 03/13/17 22:43 Last Admin: 03/13/17 21:23 Dose: 100 mls/hr Levofloxacin/Dextrose (Levaquin In D5w 750 Mg/150 Ml) Confirm Administered Dose 150 mls @ as directed IV .STK-MED ONE Stop: 03/13/17 21:18 Last Admin: 03/13/17 21:24 Dose: Not Given Morphine Sulfate (Morphine) 2 mg IVPUSH Q2H PRN PRN Reason: Pain (severe 7-10) Stop: 03/14/17 22:17 Ondansetron HCl (Zofran) 4 mg IVPUSH ONETIME ONE Stop: 03/13/17 18:55 Last Admin: 03/13/17 19:12 Dose: 4 mg - Exam General: alert, cooperative Neck: supple, trachea midline Lungs: Clear to auscultation, Normal respiratory effort Cardiovascular: Regular Rate, Regular Rhythm Abdomen: No: tenderness - Problem List & Annotations (1) Pneumonia SNOMED Code(s): 762836947 Code(s): J18.9 - PNEUMONIA, UNSPECIFIED ORGANISM Status: Acute Current Visit: Yes Qualifiers: Pneumonia type: due to unspecified organism Laterality: right Lung location: middle lobe of lung Qualified Code(s): J18.1 - Lobar pneumonia, unspecified organism - Problem List Review Problem List Initiated/Reviewed/Updated: Yes - My Orders Last 24 Hours: My Active Orders 03/15/17 21:00 Levofloxacin/Dextrose 5%-Water [Levaquin in D5W 750 MG/150 ML] 750 mg Premix Bag 1 bag IV Q48H 03/16/17 05:11 BASIC METABOLIC PANEL,BMP [CHEM] AM CBC WITH AUTO DIFF [HEME] AM MAGNESIUM [CHEM] AM - Plan Plan:: CXR: cardiomegaly; right sided infiltrate: on levaquin. 03/15/2017: improving; consider discharge home tomorrow. Desean Hansen MD
[2017-03-15] MEDS ORDERED: Levofloxacin/Dextrose 5%-Water 750 MG in Premix Bag 1 BAG IV SCH (21:00)
[2017-03-16] MEDS: Heparin Sodium 5,000 Units/ML Vial SUBCUT SCH (06:42)
[2017-03-16] MEDS: Sodium Chloride 0.9% 1,000 ML IV SCH (06:43)
[2017-03-16] MEDS: Insulin Aspart 100 Units/ML 3 ML Pen SUBCUT SCH ×2 (06:57→11:37)
[2017-03-16] MEDS: Insulin Glargine,Human Rec. Analog 100 Units/ML 3 ML Pen SUBCUT SCH (08:25)
[2017-03-16] MEDS: Rosuvastatin 10 MG Tab PO SCH (08:29)
[2017-03-16] MEDS: Aspirin 81 MG Tab.EC PO SCH (08:31)
[2017-03-16] MEDS: Carvedilol 25 MG Tab PO SCH (08:31)
[2017-03-16] MEDS: Docusate Sodium 100 MG Cap PO SCH (08:31)
[2017-03-16] MEDS: Losartan 50 MG Tab PO SCH (08:33)
[2017-03-16 08:34] VITALS: BP 156/67
--- NOTE | 2017-03-16 09:56 | CR ---
EXAM DATE: 03/13/17 PATIENT'S AGE: 86 Patient: TEE [place]ERYVILLE Facility: [place], [place] Site . Site : 1930 Study: XRay Chest [id number]/14/2017 8:16:09 PM Ordering Physician: Doctor Ordonez Final Report: Indication: Shortness of breath, pain Technique: Chest 1 view Comparison: May 03, 2016 Findings/Impression: Postoperative changes of a median sternotomy with stable cardiomegaly. Right- sided AICD again noted. Increased patchy opacity in the right hilar region may represent atelectasis or infiltrate. No effusion or pneumothorax. Osseous structures are intact. Dictated by Melina Contreras MD @ Mar 13 2017 8:17PM (Electronic Signature) Report Signed by Proxy. JACINTA
--- NOTE | 2017-03-16 09:59 | PCM.DCSUM1 ---
Discharge Summary - Hospital Course Free Text/Narrative:: 86 yo male admitted for pneumonia. He was having episodes of confusion, memory loss along with nausea and vomitting. He did not fever or elevated white count on admission. His cxr showed right sided infiltrate. He was started on levaquin and he improved significantly. He is discharge with levaquin 750 po q 48 hours x 5 days. He may resume his home medications. He is discharged with Home health agency to assess recent hospitilizations, PT/OT for stregth, ambulation and safety. He needs custodial services to monitor medications. Dr. Bowers will continue to follow the patient. - Discharge Data Discharge Date: 03/16/17 Discharge Disposition: Home, Self-Care 01 Condition: Good - Patient Instructions Diet: Heart Healthy Diet Activity: As Tolerated Showering/Bathing: May Shower Notify Provider of: Fever, Increased Pain, Swelling and Redness, Drainage, Nausea and/or Vomiting - Discharge Plan Prescriptions/Med Rec: Levofloxacin [Levaquin] 750 mg PO Q48H #5 tablet Home Medications: Home Meds Bumetanide [Bumex] 1 mg PO DAILY 08/26/14 [History] Carvedilol 12.5 mg PO BID 08/26/14 [History] Insulin Aspart [Novolog Flexpen] 10 units SUBCUT TIDAC 08/26/14 [History] Insulin Glarg,Human.Rec.Analog [Lantus] 40 unit SUBCUT DAILY 08/26/14 [History] Rosuvastatin [Crestor] 20 mg PO BEDTIME 08/26/14 [History] Aspirin [Halfprin] 81 mg PO BEDTIME 03/13/17 [History] Losartan [Cozaar] 50 mg PO DAILY 03/13/17 [History] Docusate Sodium 300 mg PO BID 03/16/17 [History] Levofloxacin [Levaquin] 750 mg PO Q48H #5 tablet 03/16/17 [Rx] Sennosides [Senna] 1 tab PO BID 03/16/17 [History] Patient Handouts: Dehydration, Adult, [id number], Levofloxacin tablets, Community-Acquired Pneumonia, Adult, [id number] Referrals: [facility] [Outside] Prince Echevarria MD [Ordering Only Provider] - 03/20/17 8:00 am - General Info Date of Service: 03/16/17 Functional Status: Reports: pain controlled - Review of Systems General: Reports: No Symptoms HEENT: Reports: no symptoms Pulmonary: Reports: no symptoms Cardiovascular: Reports: No Symptoms Gastrointestinal: Reports: No symptoms Genitourinary: Reports: no symptoms Musculoskeletal: Reports: no symptoms Skin: Reports: no symptoms Neurological: Reports: No Symptoms Psychiatric: Reports: no symptoms - Patient Data Vitals - Most Recent: Last Vital Signs Temp 97.4 F 03/16/17 08:00 Pulse 60 03/16/17 08:31 Resp 20 03/16/17 08:00 BP 156/67 H 03/16/17 08:33 Pulse Ox 96 03/16/17 08:00 Weight - Most Recent: 135.171 kg I&O - Last 24 hours: Intake & Output 03/15/17 03/16/17 03/16/17 22:59 06:59 14:59 Intake Total 1440 1400 Output Total 350 990 Balance 1090 410 Lab Results - Last 24 hrs: Laboratory Results - last 24 hr 03/15/17 03/15/17 03/15/17 Range/Units 08:45 11:09 16:27 WBC (4.0-11.0) K/uL RBC (4.50-5.90) M/uL Hgb (13.0-17.0) g/dL Hct (38.0-50.0) % MCV (80.0-98.0) fL MCH (27.0-32.0) pg MCHC (31.0-37.0) g/dL RDW Std Deviation (28.0-62.0) fl RDW Coeff of Anjana (11.0-15.0) % Plt Count (150-400) K/uL MPV (7.40-12.00) fL Neut % (Auto) (48.0-80.0) % Lymph % (Auto) (16.0-40.0) % [place] % (Auto) (0.0-15.0) % Eos % (Auto) (0.0-7.0) % Baso % (Auto) (0.0-1.5) % Neut # (Auto) (1.4-5.7) K/uL Lymph # (Auto) (0.6-2.4) K/uL [place] # (Auto) (0.0-0.8) K/uL Eos # (Auto) (0.0-0.7) K/uL Baso # (Auto) (0.0-0.1) K/uL Nucleated RBC % /100WBC Nucleated RBCs # K/uL Sodium (136-146) mmol/L Potassium (3.5-5.1) mmol/L Chloride (98-110) mmol/L Carbon Dioxide (21-31) mmol/L BUN (6.0-23.0) mg/dL Creatinine (0.6-1.5) mg/dL Est Cr Clr Drug Dosing mL/min Estimated GFR (MDRD) ml/min Glucose (60-110) mg/dL POC Glucose 256 H 278 H 235 H (60-110) mg/dL Calcium (8.8-10.8) mg/dL Magnesium (1.5-2.3) mEq/L 03/15/17 03/16/17 03/16/17 Range/Units 21:15 05:30 05:30 WBC 4.87 (4.0-11.0) K/uL RBC 3.26 L (4.50-5.90) M/uL Hgb 10.2 L (13.0-17.0) g/dL Hct 31.9 L (38.0-50.0) % MCV 97.9 (80.0-98.0) fL MCH 31.3 (27.0-32.0) pg MCHC 32.0 (31.0-37.0) g/dL RDW Std Deviation 52.6 (28.0-62.0) fl RDW Coeff of Najana 15 (11.0-15.0) % Plt Count 149 L (150-400) K/uL MPV 10.50 (7.40-12.00) fL Neut % (Auto) 57.1 (48.0-80.0) % Lymph % (Auto) 23.4 (16.0-40.0) % [place] % (Auto) 14.6 (0.0-15.0) % Eos % (Auto) 4.7 (0.0-7.0) % Baso % (Auto) 0.2 (0.0-1.5) % Neut # (Auto) 2.8 (1.4-5.7) K/uL Lymph # (Auto) 1.1 (0.6-2.4) K/uL [place] # (Auto) 0.7 (0.0-0.8) K/uL Eos # (Auto) 0.2 (0.0-0.7) K/uL Baso # (Auto) 0.0 (0.0-0.1) K/uL Nucleated RBC % 0.0 /100WBC Nucleated RBCs # 0 K/uL Sodium 135 L (136-146) mmol/L Potassium 4.7 (3.5-5.1) mmol/L Chloride 111 H (98-110) mmol/L Carbon Dioxide 18 L (21-31) mmol/L BUN 29 H (6.0-23.0) mg/dL Creatinine 1.3 (0.6-1.5) mg/dL Est Cr Clr Drug Dosing 40.65 mL/min Estimated GFR (MDRD) 52.3 ml/min Glucose 125 H (60-110) mg/dL POC Glucose 203 H (60-110) mg/dL Calcium 8.0 L (8.8-10.8) mg/dL Magnesium 1.6 (1.5-2.3) mEq/L 03/16/17 Range/Units 06:39 WBC (4.0-11.0) K/uL RBC (4.50-5.90) M/uL Hgb (13.0-17.0) g/dL Hct (38.0-50.0) % MCV (80.0-98.0) fL MCH (27.0-32.0) pg MCHC (31.0-37.0) g/dL RDW Std Deviation (28.0-62.0) fl RDW Coeff of Anjana (11.0-15.0) % Plt Count (150-400) K/uL MPV (7.40-12.00) fL Neut % (Auto) (48.0-80.0) % Lymph % (Auto) (16.0-40.0) % [place] % (Auto) (0.0-15.0) % Eos % (Auto) (0.0-7.0) % Baso % (Auto) (0.0-1.5) % Neut # (Auto) (1.4-5.7) K/uL Lymph # (Auto) (0.6-2.4) K/uL [place] # (Auto) (0.0-0.8) K/uL Eos # (Auto) (0.0-0.7) K/uL Baso # (Auto) (0.0-0.1) K/uL Nucleated RBC % /100WBC Nucleated RBCs # K/uL Sodium (136-146) mmol/L Potassium (3.5-5.1) mmol/L Chloride (98-110) mmol/L Carbon Dioxide (21-31) mmol/L BUN (6.0-23.0) mg/dL Creatinine (0.6-1.5) mg/dL Est Cr Clr Drug Dosing mL/min Estimated GFR (MDRD) ml/min Glucose (60-110) mg/dL POC Glucose 125 H (60-110) mg/dL Calcium (8.8-10.8) mg/dL Magnesium (1.5-2.3) mEq/L SAMSON Results - Last 24 hrs: Microbiology 03/13/17 21:26 Aerobic Blood Culture - Preliminary Blood - Venous - Lab Draw NO GROWTH AFTER 2 DAYS Anaerobic Blood Culture - Preliminary NO GROWTH AFTER 2 DAYS Med Orders - Current: Current Medications Acetaminophen (Tylenol) 650 mg PO Q4H PRN PRN Reason: Pain (Mild 1-3)/fever Aspirin (Halfprin) 81 mg PO BRK [facility] Last Admin: 03/16/17 08:31 Dose: 81 mg Bisacodyl (Dulcolax) 5 mg PO DAILY PRN PRN Reason: Constipation Carvedilol (Coreg) 25 mg PO BID [facility] Last Admin: 03/16/17 08:31 Dose: 25 mg Docusate Sodium (Colace) 100 mg PO BID [facility] Last Admin: 03/16/17 08:31 Dose: 100 mg Heparin Sodium (Porcine) (Heparin Sodium) 5,000 units SUBCUT Q8H [facility] Last Admin: 03/16/17 06:42 Dose: 5,000 units Levofloxacin/Dextrose 750 mg/ (Premix) 150 mls @ 100 mls/hr IV Q48H [facility] Last Admin: 03/15/17 21:08 Dose: 100 mls/hr Sodium Chloride (Normal Saline) 1,000 mls @ 75 mls/hr IV ASDIRECTED [facility] Last Admin: 03/16/17 06:43 Dose: 75 mls/hr Insulin Aspart (Novolog) 0 unit SUBCUT ACBED [facility] PRN Reason: Protocol Last Admin: 03/16/17 06:57 Dose: Not Given Insulin Glargine (Lantus Solostar) 0 units SUBCUT DAILY [facility] Last Admin: 03/16/17 08:25 Dose: 40 units Lorazepam (Ativan) 1 mg IV Q6H PRN PRN Reason: Nausea/Vomiting Losartan Potassium (Cozaar) 50 mg PO DAILY [facility] Last Admin: 03/16/17 08:33 Dose: 50 mg Ondansetron HCl (Zofran Odt) 4 mg PO Q4H PRN PRN Reason: nausea, able to take PO Rosuvastatin Calcium (Crestor) 40 mg PO DAILY [facility] Last Admin: 03/16/17 08:29 Dose: 40 mg Sodium Chloride (Saline Flush) 10 ml FLUSH ASDIRECTED PRN PRN Reason: Keep Vein Open Sodium Chloride (Saline Flush) 2.5 ml FLUSH ASDIRECTED PRN PRN Reason: Keep Vein Open Temazepam (Restoril) 15 mg PO BEDTIME PRN PRN Reason: Sleep Discontinued Medications Sodium Chloride (Normal Saline) 1,000 mls @ 83 mls/hr IV ASDIRECTED [facility] Last Admin: 03/13/17 19:12 Dose: 83 mls/hr Levofloxacin/Dextrose 750 mg/ (Premix) 150 mls @ 100 mls/hr IV ONETIME ONE Stop: 03/13/17 22:43 Last Admin: 03/13/17 21:23 Dose: 100 mls/hr Levofloxacin/Dextrose (Levaquin In D5w 750 Mg/150 Ml) Confirm Administered Dose 150 mls @ as directed IV .STK-MED ONE Stop: 03/13/17 21:18 Last Admin: 03/13/17 21:24 Dose: Not Given Morphine Sulfate (Morphine) 2 mg IVPUSH Q2H PRN PRN Reason: Pain (severe 7-10) Stop: 03/14/17 22:17 Ondansetron HCl (Zofran) 4 mg IVPUSH ONETIME ONE Stop: 03/13/17 18:55 Last Admin: 03/13/17 19:12 Dose: 4 mg - Exam General: Reports: alert, oriented HEENT: Reports: Pupils equal, EOMI, Other (very hard of hearing. His hearing aid batteries are low. ) Neck: Reports: supple Lungs: Reports: Decreased breath sounds Cardiovascular: Reports: Regular Rate, Regular Rhythm Abdomen: Reports: bowel sounds present, soft Extremities: Reports: no edema Skin: Reports: warm, dry, intact Neurological: Reports: no new focal deficit Psy/Mental Status: Reports: alert, normal affect, normal mood *Q Meaningful Use (DIS) - VTE *Q VTE Criteria *Q: - Stroke *Q Stroke Criteria *Q: - AMI *Q AMI Criteria *Q:
--- NOTE | 2017-03-16 09:59 | CT ---
EXAM DATE: 03/13/17 PATIENT'S AGE: 86 Patient: TEE CHRISTENSEN Facility: [place], [place] : 1930 Study: CT Abdomen/Pelvis WO CONT [id number]/14/2017 8:18:12 PM Ordering Physician: Fabiola Navarro Final Report: INDICATION: Abdominal pain TECHNIQUE: CT abdomen and pelvis without contrast. COMPARISON: March 09, 2015 FINDINGS: Lower chest: Cardiomegaly. Pacer wires partially visualized. Atherosclerotic disease of the aorta. Postoperative changes of a median sternotomy. Peripheral fibrotic changes at both lung bases. Liver: Unremarkable. Spleen: Unremarkable. Pancreas: Unremarkable. Gallbladder and bile ducts: Cholelithiasis. Adrenal glands: Unremarkable. Kidneys: Unremarkable. No kidney or ureteral stones and no hydronephrosis. GI tract: Minimal colonic diverticulosis. Vascular structures: Atherosclerotic disease. Lymph nodes: 1.4 cm left para-aortic lymph node at the level of the bifurcation , previously 1.1cm. Miscellaneous: Small fat containing umbilical hernia. Pelvic Organs: Unremarkable. Bones: Postoperative changes of posterior fusion hardware spanning the L3-L5 levels. Bilateral laminectomies at L2. Stable, well-defined fluid collection with wall calcifications located superficial to the lumbar spine hardware. The collection measures 18.5 x 4.5 x 5.0 cm. No surrounding fat stranding. IMPRESSION: No acute intra-abdominal process identified. Fluid collection posterior to lumbar spine internal fixation hardware. This is stable when compared to the prior exam of February 07, 2015. Cholelithiasis. Cardiomegaly. Minimal colonic diverticulosis. Left periaortic lymphadenopathy. Small fat containing umbilical hernia. Persistent left para-aortic adenopathy. Please note that all CT scans at this facility use dose modulation, iterative reconstruction, and/or weight-based dosing when appropriate to reduce radiation dose to as low as reasonably achievable. Dictated by Melina Contreras MD @ Mar 13 2017 8:33PM (Electronic Signature) Report Signed by Proxy. [facility] SYSTEMAndria
--- NOTE | 2017-03-16 11:15 | PCM.SN ---
- Free Text/Narrative Note: He needs home care because he has had a recent pneumonia and has gait instability and is at high risk of falling. Desean Hansen MD
== END 2017-03-16 11:37 | disposition home or self-care (01) | DRG 195 ==
LOC: MW.ED 18:31 → MW.MS 21:14
PROVIDERS: ADMIT Family Medicine; ATTEND Family Medicine
DX: J18.1 Lobar pneumonia, unspecified organism (principal); E86.0 Dehydration; R26.81 Unsteadiness on feet; I25.10 Atherosclerotic heart disease of native coronary artery without angina pectoris; K42.9 Umbilical hernia without obstruction or gangrene; R41.0 Disorientation, unspecified; E11.9 Type 2 diabetes mellitus without complications; E78.00 Pure hypercholesterolemia, unspecified; I10 Essential (primary) hypertension; Z95.810 Presence of automatic (implantable) cardiac defibrillator; Z79.899 Other long term (current) drug therapy; Z95.1 Presence of aortocoronary bypass graft; Z91.81 History of falling
CPT/HCPCS: 71010; 74176; 80053; 81001; 82150; 83605; 83690; 83880; 84484; 85025; 87040; 87086; 93005; 96361; 96374; 99285; J2405; J7040; 36415; 80048; 82962; 83735; 96375; A9270-GY; J1644; J1815-GY; J1956

== ENCOUNTER 2017-05-04 19:52 | Inpatient (IN) | payer MEDICARE, BC ==
[2017-05-04] MEDS ORDERED: Sodium Chloride 0.9% 10 ML Syringe FLUSH PRN ×2 (19:56→22:23)
[2017-05-04] MEDS ORDERED: Sodium Chloride 0.9% 2.5 ML Syringe FLUSH PRN ×2 (19:56→22:23)
--- NOTE | 2017-05-04 20:01 | EDM.PDOC ---
ED HPI GENERAL MEDICAL PROBLEM - General Stated Complaint: UNK Time Seen by Provider: 05/04/17 19:54 - History of Present Illness INITIAL COMMENTS - FREE TEXT/NARRATIVE: HISTORY AND PHYSICAL: History of present illness: Patient's 86-year-old white male presents with a concern of increased inferior extremity swelling and difficulty ambulating patient has had prior knee surgery and reportedly postoperative complications his complete history is unclear patient's a poor historian due to baseline /daughter were responsible for notified paramedics is no reported shortness of breath chest pain nausea vomiting fever chills Review of systems: As per history of present illness and below otherwise all systems reviewed and negative. Past medical history: As per history of present illness and as reviewed below otherwise noncontributory. Surgical history: As per history of present illness and as reviewed below otherwise noncontributory. Social history: No reported history of drug or alcohol abuse. Family history: As per history of present illness and as reviewed below otherwise noncontributory. Physical exam: HEENT: Atraumatic, normocephalic, pupils reactive, negative for conjunctival pallor or scleral icterus, mucous membranes moist, throat clear, neck supple, nontender, trachea midline. Lungs: Clear to auscultation, breath sounds equal bilaterally, chest nontender. Heart: S1S2, regular, negative for clicks, rubs, or JVD. Abdomen: Soft, nondistended, nontender. Negative for masses or hepatosplenomegaly. Negative for costovertebral tenderness. Pelvis: Stable nontender. Genitourinary: Deferred. Rectal: Deferred. Extremities: Bilateral chronic venous stasis changes 3+ edema psoriatic type rash right greater than left neurovascular exam unremarkable Neuro: Awake, follows commands and moves all extremities limited grossly nonfocal exam Diagnostics: CBC CMP PT/INR troponin blood culture 2 UA BNP lactic acid x-ray left knee bilateral tib-fib chest x-ray EKG Therapeutics: IV O2 monitor Impression: #1 inability to ambulate #2 chronic edema inferior extremities with exacerbation Definitive disposition and diagnosis as appropriate pending reevaluation and review of above. - Related Data Allergies Allergy/AdvReac Type Severity Reaction Status Date / Time No Known Allergies Allergy Verified 03/13/17 18:54 Home Meds: Home Meds Bumetanide [Bumex] 1 mg PO DAILY 08/26/14 [History] Carvedilol 12.5 mg PO BID 08/26/14 [History] Insulin Aspart [Novolog Flexpen] 10 units SUBCUT TIDAC 08/26/14 [History] Insulin Glarg,Human.Rec.Analog [Lantus] 40 unit SUBCUT DAILY 08/26/14 [History] Rosuvastatin [Crestor] 20 mg PO BEDTIME 08/26/14 [History] Aspirin [Halfprin] 81 mg PO BEDTIME 03/13/17 [History] Losartan [Cozaar] 50 mg PO DAILY 03/13/17 [History] Docusate Sodium 300 mg PO BID 03/16/17 [History] Levofloxacin [Levaquin] 750 mg PO Q48H #5 tablet 03/16/17 [Rx] Sennosides [Senna] 1 tab PO BID 03/16/17 [History] Past Medical History HEENT History: Reports: Hard of Hearing Cardiovascular History: Reports: Automatic Implantable Cardioverter Defibrillators, High Cholesterol, Hypertension Respiratory History: Reports: None Gastrointestinal History: Reports: Other (See Below) Other Gastrointestinal History: "Water on the belly" Genitourinary History: Reports: None Musculoskeletal History: Reports: Arthritis Neurological History: Reports: None Psychiatric History: Reports: None Endocrine/Metabolic History: Reports: Diabetes, Type II Hematologic History: Reports: None Immunologic History: Reports: None Oncologic (Cancer) History: Reports: None Dermatologic History: Reports: None Other Dermatologic History: cellulitis of left leg - Infectious Disease History Infectious Disease History: Reports: None - Past Surgical History Musculoskeletal Surgical History: Reports: Other (See Below) Social & Family History - Family History Family Medical History: Noncontributory - Tobacco Use Smoking Status *Q: Never Smoker Second Hand Smoke Exposure: No - Caffeine Use Caffeine Use: Reports: Coffee - Alcohol Use Days Per Week of Alcohol Use: 0 - Recreational Drug Use Recreational Drug Use: No ED ROS GENERAL - Review of Systems Review Of Systems: ROS reveals no pertinent complaints other than HPI. ED EXAM, GENERAL - Physical Exam Exam: See Below (See dictation) Course - Vital Signs Last Recorded V/S: Last Vital Signs Temp 37.9 C 05/04/17 19:59 Pulse 82 05/04/17 19:59 Resp 26 H 05/04/17 19:59 BP 139/65 05/04/17 19:59 Pulse Ox 95 05/04/17 19:59 - Orders/Labs/Meds Orders: Active Orders 24 hr Category Date Time Status EKG Documentation Completion [RC] STAT Care 05/04/17 19:56 Active Chest 1V Frontal [CR] Stat Exams 05/04/17 19:57 Ordered Knee 3V Lt [CR] Stat Exams 05/04/17 19:57 Ordered Tibia Fibula Lt [CR] Stat Exams 05/04/17 19:57 Ordered Tibia Fibula Rt [CR] Stat Exams 05/04/17 19:57 Ordered CULTURE BLOOD [BC] Stat Lab 05/04/17 20:08 Results CULTURE BLOOD [BC] Stat Lab 05/04/17 20:20 Received UA W/MICROSCOPIC [URIN] Stat Lab 05/04/17 19:57 Uncollected Sodium Chloride 0.9% [Saline Flush] Med 05/04/17 19:56 Active 10 ml FLUSH ASDIRECTED PRN Sodium Chloride 0.9% [Saline Flush] Med 05/04/17 19:56 Active 2.5 ml FLUSH ASDIRECTED PRN Vancomycin [Vancocin] 1 gm Med 05/04/17 20:55 Active Sodium Chloride 0.9% [Normal Saline] 250 ml IV ONETIME Blood Culture x2 Reflex Set [OM.PC] Stat Oth 05/04/17 19:57 Ordered Saline Lock Insert [OM.PC] Stat Oth 05/04/17 19:56 Ordered Medication Orders Vancomycin HCl 1 gm/ Sodium (Chloride) 250 mls @ 250 mls/hr IV ONETIME ONE Stop: 05/04/17 21:54 Sodium Chloride (Saline Flush) 10 ml FLUSH ASDIRECTED PRN PRN Reason: Keep Vein Open Last Admin: 05/04/17 20:31 Dose: 10 ml Sodium Chloride (Saline Flush) 2.5 ml FLUSH ASDIRECTED PRN PRN Reason: Keep Vein Open Last Admin: 05/04/17 20:31 Dose: 2.5 ml Labs: Laboratory Tests 05/04/17 05/04/17 05/04/17 Range/Units 20:08 20:08 20:08 WBC 17.31 H (4.0-11.0) K/uL RBC 3.52 L (4.50-5.90) M/uL Hgb 11.3 L (13.0-17.0) g/dL Hct 34.0 L (38.0-50.0) % MCV 96.6 (80.0-98.0) fL MCH 32.1 H (27.0-32.0) pg MCHC 33.2 (31.0-37.0) g/dL RDW Std Deviation 52.0 (28.0-62.0) fl RDW Coeff of Anjana 15 (11.0-15.0) % Plt Count 159 (150-400) K/uL MPV 10.30 (7.40-12.00) fL Add Manual Diff YES Neutrophils % (Manual) 81 H (48.0-80.0) % Band Neutrophils % 10 % Lymphocytes % (Manual) 2 L (16.0-40.0) % Monocytes % (Manual) 7 (0.0-15.0) % Nucleated RBC % 0.0 /100WBC Absolute Seg Neuts 14.0 Band Neutrophils # 1.7 Lymphocytes # (Manual) 0.3 Monocytes # (Manual) 1.2 Nucleated RBCs # 0 K/uL INR 1.24 H (0.86-1.11) Lactate 2.3 H (0.20-2.00) mmol/L Sodium (136-146) mmol/L Potassium (3.5-5.1) mmol/L Chloride (98-110) mmol/L Carbon Dioxide (21-31) mmol/L BUN (6.0-23.0) mg/dL Creatinine (0.6-1.5) mg/dL Est Cr Clr Drug Dosing mL/min Estimated GFR (MDRD) ml/min Glucose (60-110) mg/dL Calcium (8.8-10.8) mg/dL Total Bilirubin (0.1-1.5) mg/dL AST (5-40) IU/L ALT (8-54) IU/L Alkaline Phosphatase (40-150) Troponin I (0.0-0.29) NG/ML B-Natriuretic Peptide (<100) PG/ML Total Protein (6.0-8.0) g/dL Albumin (3.4-4.8) g/dL Globulin (2.0-3.5) g/dL Albumin/Globulin Ratio (1.3-2.8) 05/04/17 05/04/17 05/04/17 Range/Units 20:08 20:08 20:08 WBC (4.0-11.0) K/uL RBC (4.50-5.90) M/uL Hgb (13.0-17.0) g/dL Hct (38.0-50.0) % MCV (80.0-98.0) fL MCH (27.0-32.0) pg MCHC (31.0-37.0) g/dL RDW Std Deviation (28.0-62.0) fl RDW Coeff of Anjana (11.0-15.0) % Plt Count (150-400) K/uL MPV (7.40-12.00) fL Add Manual Diff Neutrophils % (Manual) (48.0-80.0) % Band Neutrophils % % Lymphocytes % (Manual) (16.0-40.0) % Monocytes % (Manual) (0.0-15.0) % Nucleated RBC % /100WBC Absolute Seg Neuts Band Neutrophils # Lymphocytes # (Manual) Monocytes # (Manual) Nucleated RBCs # K/uL INR (0.86-1.11) Lactate (0.20-2.00) mmol/L Sodium 133 L (136-146) mmol/L Potassium 4.1 (3.5-5.1) mmol/L Chloride 102 (98-110) mmol/L Carbon Dioxide 19 L (21-31) mmol/L BUN 31 H (6.0-23.0) mg/dL Creatinine 1.7 H (0.6-1.5) mg/dL Est Cr Clr Drug Dosing 31.09 mL/min Estimated GFR (MDRD) 38.4 ml/min Glucose 224 H (60-110) mg/dL Calcium 8.8 (8.8-10.8) mg/dL Total Bilirubin 1.2 (0.1-1.5) mg/dL AST 19 (5-40) IU/L ALT 12 (8-54) IU/L Alkaline Phosphatase 108 (40-150) Troponin I < 0.10 (0.0-0.29) NG/ML B-Natriuretic Peptide 1425 H (<100) PG/ML Total Protein 6.9 (6.0-8.0) g/dL Albumin 3.6 (3.4-4.8) g/dL Globulin 3.3 (2.0-3.5) g/dL Albumin/Globulin Ratio 1.1 L (1.3-2.8) Meds: Medications Generic Name Dose Route Start Last Admin Trade Name Freq PRN Reason Stop Dose Admin Vancomycin HCl 1 gm/ Sodium 250 mls @ 250 mls/hr 05/04/17 20:55 Chloride IV 05/04/17 21:54 ONETIME ONE Sodium Chloride 10 ml 05/04/17 19:56 05/04/17 20:31 Saline Flush FLUSH 10 ml ASDIRECTED PRN Administration Keep Vein Open Sodium Chloride 2.5 ml 05/04/17 19:56 05/04/17 20:31 Saline Flush FLUSH 2.5 ml ASDIRECTED PRN Administration Keep Vein Open Discontinued Medications Generic Name Dose Route Start Last Admin Trade Name Freq PRN Reason Stop Dose Admin Furosemide 40 mg 05/04/17 20:54 Lasix IVPUSH 05/04/17 20:55 NOW ONE Departure - Departure Time of Disposition: 21:00 Disposition: Admitted As Inpatient 66 Condition: Fair Clinical Impression: CHF (congestive heart failure) Cellulitis Qualifiers: Site of cellulitis: extremity Site of cellulitis of extremity: lower extremity Laterality: left Qualified Code(s): L03.116 - Cellulitis of left lower limb - Discharge Information Referrals: PCP,None [Primary Care Provider] - - My Orders Last 24 Hours: My Active Orders 05/04/17 19:56 EKG Documentation Completion [RC] STAT Sodium Chloride 0.9% [Saline Flush] 10 ml FLUSH ASDIRECTED PRN Sodium Chloride 0.9% [Saline Flush] 2.5 ml FLUSH ASDIRECTED PRN Saline Lock Insert [OM.PC] Stat 05/04/17 19:57 Chest 1V Frontal [CR] Stat Knee 3V Lt [CR] Stat Tibia Fibula Lt [CR] Stat Tibia Fibula Rt [CR] Stat UA W/MICROSCOPIC [URIN] Stat Blood Culture x2 Reflex Set [OM.PC] Stat 05/04/17 20:08 CULTURE BLOOD [BC] Stat 05/04/17 20:20 CULTURE BLOOD [BC] Stat 05/04/17 20:55 Vancomycin [Vancocin] 1 gm Sodium Chloride 0.9% [Normal Saline] 250 ml IV ONETIME - Assessment/Plan Last 24 Hours: My Active Orders 05/04/17 19:56 EKG Documentation Completion [RC] STAT Sodium Chloride 0.9% [Saline Flush] 10 ml FLUSH ASDIRECTED PRN Sodium Chloride 0.9% [Saline Flush] 2.5 ml FLUSH ASDIRECTED PRN Saline Lock Insert [OM.PC] Stat 05/04/17 19:57 Chest 1V Frontal [CR] Stat Knee 3V Lt [CR] Stat Tibia Fibula Lt [CR] Stat Tibia Fibula Rt [CR] Stat UA W/MICROSCOPIC [URIN] Stat Blood Culture x2 Reflex Set [OM.PC] Stat 05/04/17 20:08 CULTURE BLOOD [BC] Stat 05/04/17 20:20 CULTURE BLOOD [BC] Stat 05/04/17 20:55 Vancomycin [Vancocin] 1 gm Sodium Chloride 0.9% [Normal Saline] 250 ml IV ONETIME
[2017-05-04] MEDS ORDERED: Furosemide 40 MG/4 ML VIAL IVPUSH ONE (20:54)
[2017-05-04] MEDS ORDERED: Insulin Aspart 100 Units/ML 3 ML Pen SUBCUT SCH (22:30)
--- NOTE | 2017-05-04 22:55 | PCM.HP ---
H&P History of Present Illness - General Admit Problem/Dx: Admission Diagnosis/Problem Admission Diagnosis/Problem Cellulitis - History of Present Illness Initial Comments - Free Text/Narative: 86 yo male with pmh of DM, HTN, CAD, CHF, AICD, ADAIR, and CKD who presents to the ED with generalized weakness. Family is concerned about cellulitis. He has a history of recurrent cellulitis and often gets weak and confused when his cellulitis retuns. His legs are more edematous today with erythema. He has had sufjective fevers and chills. He denies any shortness of breath of chest pain. In the ED he was noted to have a WBC of 17,300, Creatinine of 1.7 and lactic acid of 2.3. He was given lasix and vancomycin in the ED. Left Lower Leg Pain Score (Numeric/FACES): 3 - Related Data Allergies/Adverse Reactions: Allergies Allergy/AdvReac Type Severity Reaction Status Date / Time No Known Allergies Allergy Verified 03/13/17 18:54 Home Medications: Home Meds Bumetanide [Bumex] 1 mg PO DAILY 08/26/14 [History] Carvedilol 12.5 mg PO BID 08/26/14 [History] Insulin Aspart [Novolog Flexpen] 10 units SUBCUT TIDAC 08/26/14 [History] Insulin Glarg,Human.Rec.Analog [Lantus] 40 unit SUBCUT DAILY 08/26/14 [History] Rosuvastatin [Crestor] 20 mg PO BEDTIME 08/26/14 [History] Aspirin [Halfprin] 81 mg PO BEDTIME 03/13/17 [History] Losartan [Cozaar] 50 mg PO DAILY 03/13/17 [History] Docusate Sodium 300 mg PO BID 03/16/17 [History] Levofloxacin [Levaquin] 750 mg PO Q48H #5 tablet 03/16/17 [Rx] Sennosides [Senna] 1 tab PO BID 03/16/17 [History] Past Medical History HEENT History: Reports: Hard of Hearing Cardiovascular History: Reports: Automatic Implantable Cardioverter Defibrillators, High Cholesterol, Hypertension Respiratory History: Reports: None Gastrointestinal History: Reports: Other (See Below) Other Gastrointestinal History: "Water on the belly" Genitourinary History: Reports: None Musculoskeletal History: Reports: Arthritis Neurological History: Reports: None Psychiatric History: Reports: None Endocrine/Metabolic History: Reports: Diabetes, Type II Hematologic History: Reports: None Immunologic History: Reports: None Oncologic (Cancer) History: Reports: None Dermatologic History: Reports: None Other Dermatologic History: cellulitis of left leg - Infectious Disease History Infectious Disease History: Reports: None - Past Surgical History Musculoskeletal Surgical History: Reports: Other (See Below) Social & Family History - Family History Family Medical History: Noncontributory - Tobacco Use Smoking Status *Q: Never Smoker Second Hand Smoke Exposure: No - Caffeine Use Caffeine Use: Reports: Coffee - Alcohol Use Days Per Week of Alcohol Use: 0 - Recreational Drug Use Recreational Drug Use: No H&P Review of Systems - Review of Systems: Review Of Systems: ROS reveals no pertinent complaints other than HPI. Exam - Exam Exam: See Below - Vital Signs Vital Signs: Last Vital Signs Temp 37.4 C 05/04/17 21:45 Pulse 60 05/04/17 21:45 Resp 18 05/04/17 21:45 BP 138/63 05/04/17 21:45 Pulse Ox 96 05/04/17 21:45 Weight: 136 kg - Exam General: Alert, Cooperative HEENT: Mucosa Moist & [place] Neck: Supple, Trachea Midline, 2 Lungs: Clear to Auscultation, Normal Respiratory Effort Cardiovascular: Regular Rate, Regular Rhythm GI/Abdominal Exam: Normal Bowel Sounds, Soft, Non-Tender, No Organomegaly, No Distention Extremities: Other (_+2 leg edema with scaly rash on anterior parker, changes consistent with chronic venous stasis) - Patient Data Result Diagrams: 05/05/17 05:03 05/05/17 05:03 *Q Meaningful Use (ADM) - VTE *Q VTE Criteria *Q: - Stroke *Q Stroke Criteria *Q: - AMI *Q AMI Criteria *Q: Problem List Initiated/Reviewed/Updated: Yes Orders Last 24hrs: Active Orders 24 hr Category Date Time Status Blood Glucose Check, Bedside [RC] TIDAC Care 05/04/17 22:23 Active Intake and Output [RC] QSHIFT Care 05/04/17 22:49 Ordered Oxygen Therapy [RC] PRN Care 05/04/17 22:48 Ordered Telemetry Monitoring [Cardiac Monitoring] [RC] . Care 05/04/17 22:25 Active DIRECTED Up ad Renuka [RC] ASDIRECTED Care 05/04/17 22:48 Ordered VTE/DVT Education [RC] PER UNIT ROUTINE Care 05/04/17 22:48 Ordered Vital Signs [RC] Q4H Care 05/04/17 22:48 Ordered [employer] Diet [DIET] Diet 05/04/17 Dinner Active BASIC METABOLIC PANEL,BMP [CHEM] AM Lab 05/05/17 05:11 Ordered BASIC METABOLIC PANEL,BMP [CHEM] AM Lab 05/06/17 05:11 Ordered BASIC METABOLIC PANEL,BMP [CHEM] AM Lab 05/07/17 05:11 Ordered CBC WITH AUTO DIFF [HEME] AM Lab 05/05/17 05:11 Ordered CBC WITH AUTO DIFF [HEME] AM Lab 05/06/17 05:11 Ordered CBC WITH AUTO DIFF [HEME] AM Lab 05/07/17 05:11 Ordered CULTURE URINE [RM] Routine Lab 05/04/17 22:43 Uncollected LACTIC ACID,WHOLE BLOOD [BG] Q6H Lab 05/05/17 02:00 Ordered LACTIC ACID,WHOLE BLOOD [BG] Q6H Lab 05/05/17 08:00 Ordered LACTIC ACID,WHOLE BLOOD [BG] Q6H Lab 05/05/17 14:00 Ordered LACTIC ACID,WHOLE BLOOD [BG] Q6H Lab 05/05/17 20:00 Ordered LACTIC ACID,WHOLE BLOOD [BG] Q6H Lab 05/06/17 02:00 Ordered LACTIC ACID,WHOLE BLOOD [BG] Q6H Lab 05/06/17 08:00 Ordered Aspirin [Halfprin] Med 05/05/17 21:00 Ordered 81 mg PO BEDTIME Carvedilol [Coreg] Med 05/05/17 09:00 Ordered 12.5 mg PO BID Heparin Sodium Med 05/05/17 09:00 Ordered 5,000 units SUBCUT Q12HR Insulin Aspart [NovoLOG] Med 05/05/17 07:30 Ordered See Protocol SUBCUT TIDAC PRN Insulin Glarg,Human.Rec.Analog Med 05/05/17 09:00 Ordered 10 unit SUBCUT BID Sodium Chloride 0.9% [Saline Flush] Med 05/04/17 22:23 Active 10 ml FLUSH ASDIRECTED PRN Sodium Chloride 0.9% [Saline Flush] Med 05/04/17 22:23 Active 2.5 ml FLUSH ASDIRECTED PRN Vancomycin Pharmacy to Dose [Pharmacy to Dose - Med 05/04/17 22:30 Ordered Vancomycin] 1 dose .XX ASDIRECTED Vancomycin [Vancocin] 1 gm Med 05/04/17 23:00 Active Sodium Chloride 0.9% [Normal Saline] 250 ml IV ONETIME Convert IV to Saline Lock [OM.PC] Routine Oth 05/04/17 22:23 Ordered Resuscitation Status Routine Resus Stat 05/04/17 22:48 Ordered Medication Orders Aspirin (Halfprin) 81 mg PO BEDTIME HUAN Carvedilol (Coreg) 12.5 mg PO BID HUAN Vancomycin HCl 1 gm/ Sodium (Chloride) 250 mls @ 166 mls/hr IV ONETIME ONE Stop: 05/05/17 00:30 Insulin Aspart (Novolog) 0 unit SUBCUT TIDAC PRN; Protocol PRN Reason: Blood Glucose Non-Formulary Medication (Insulin Glarg,Human.Rec.Analog) 10 unit SUBCUT BID HUAN Sodium Chloride (Saline Flush) 10 ml FLUSH ASDIRECTED PRN PRN Reason: Keep Vein Open Last Admin: 05/04/17 20:31 Dose: 10 ml Sodium Chloride (Saline Flush) 2.5 ml FLUSH ASDIRECTED PRN PRN Reason: Keep Vein Open Last Admin: 05/04/17 20:31 Dose: 2.5 ml Sodium Chloride (Saline Flush) 10 ml FLUSH ASDIRECTED PRN PRN Reason: Keep Vein Open Sodium Chloride (Saline Flush) 2.5 ml FLUSH ASDIRECTED PRN PRN Reason: Keep Vein Open Vancomycin HCl (Pharmacy To Dose - Vancomycin) 1 dose .XX ASDIRECTED [facility] Assessment/Plan Comment:: 86 yo male admitted with CHF and bilateral lower leg cellulitis. Cellulits: blood cultures ordered, continue Vancomycin, will trend lactic acid , will check UA CHF: received lasix 40mg IV DM: continue lantus and sliding scale novolog Kidney disease: likely chronic will continue to follow creatinine
--- NOTE | 2017-05-05 07:46 | PCM.PN ---
- Review of Systems Systems Review Comment:: feeling better, no fever. - Patient Data Vitals - Most Recent: Last Vital Signs Temp 37.6 C 05/05/17 04:00 Pulse 60 05/05/17 04:00 Resp 20 05/05/17 04:00 BP 150/68 H 05/05/17 04:00 Pulse Ox 94 L 05/05/17 04:00 Weight - Most Recent: 136 kg I&O - Last 24 Hours: Intake & Output 05/04/17 05/05/17 05/05/17 22:59 06:59 14:59 Intake Total 250 500 Output Total 325 Balance 250 175 Lab Results Last 24 Hours: Laboratory Results - last 24 hr 05/04/17 05/05/17 05/05/17 Range/Units 22:56 02:00 05:03 WBC 15.10 H (4.0-11.0) K/uL RBC 3.35 L (4.50-5.90) M/uL Hgb 10.7 L (13.0-17.0) g/dL Hct 32.4 L (38.0-50.0) % MCV 96.7 (80.0-98.0) fL MCH 31.9 (27.0-32.0) pg MCHC 33.0 (31.0-37.0) g/dL RDW Std Deviation 53.7 (28.0-62.0) fl RDW Coeff of Anjana 15 (11.0-15.0) % Plt Count 143 L (150-400) K/uL MPV 10.50 (7.40-12.00) fL Add Manual Diff YES Neutrophils % (Manual) 79 (48.0-80.0) % Band Neutrophils % 10 % Lymphocytes % (Manual) 6 L (16.0-40.0) % Monocytes % (Manual) 5 (0.0-15.0) % Nucleated RBC % 0.0 /100WBC Absolute Seg Neuts 11.9 Band Neutrophils # 1.5 Lymphocytes # (Manual) 0.9 Monocytes # (Manual) 0.8 Nucleated RBCs # 0 K/uL Lactate 1.7 (0.20-2.00) mmol/L Sodium (136-146) mmol/L Potassium (3.5-5.1) mmol/L Chloride (98-110) mmol/L Carbon Dioxide (21-31) mmol/L BUN (6.0-23.0) mg/dL Creatinine (0.6-1.5) mg/dL Est Cr Clr Drug Dosing mL/min Estimated GFR (MDRD) ml/min Glucose (60-110) mg/dL POC Glucose 221 H (60-110) mg/dL Calcium (8.8-10.8) mg/dL 05/05/17 Range/Units 05:03 WBC (4.0-11.0) K/uL RBC (4.50-5.90) M/uL Hgb (13.0-17.0) g/dL Hct (38.0-50.0) % MCV (80.0-98.0) fL MCH (27.0-32.0) pg MCHC (31.0-37.0) g/dL RDW Std Deviation (28.0-62.0) fl RDW Coeff of Anjana (11.0-15.0) % Plt Count (150-400) K/uL MPV (7.40-12.00) fL Add Manual Diff Neutrophils % (Manual) (48.0-80.0) % Band Neutrophils % % Lymphocytes % (Manual) (16.0-40.0) % Monocytes % (Manual) (0.0-15.0) % Nucleated RBC % /100WBC Absolute Seg Neuts Band Neutrophils # Lymphocytes # (Manual) Monocytes # (Manual) Nucleated RBCs # K/uL Lactate (0.20-2.00) mmol/L Sodium 135 L (136-146) mmol/L Potassium 4.2 (3.5-5.1) mmol/L Chloride 105 (98-110) mmol/L Carbon Dioxide 20 L (21-31) mmol/L BUN 31 H (6.0-23.0) mg/dL Creatinine 1.8 H (0.6-1.5) mg/dL Est Cr Clr Drug Dosing 29.36 mL/min Estimated GFR (MDRD) 36.0 ml/min Glucose 222 H (60-110) mg/dL POC Glucose (60-110) mg/dL Calcium 8.2 L (8.8-10.8) mg/dL Med Orders - Current: Current Medications Aspirin (Halfprin) 81 mg PO BEDTIME HUAN Carvedilol (Coreg) 12.5 mg PO BID HUAN Furosemide (Lasix) 40 mg IVPUSH DAILY HUAN Heparin Sodium (Porcine) (Heparin Sodium) 5,000 units SUBCUT Q12HR HUAN Vancomycin HCl 2 gm/ Sodium (Chloride) 500 mls @ 250 mls/hr IV Q24H HUAN Insulin Aspart (Novolog) 0 unit SUBCUT TIDAC PRN; Protocol PRN Reason: Blood Glucose Insulin Glargine (Lantus Solostar) 10 units SUBCUT BID HUAN Sodium Chloride (Saline Flush) 10 ml FLUSH ASDIRECTED PRN PRN Reason: Keep Vein Open Last Admin: 05/04/17 20:31 Dose: 10 ml Sodium Chloride (Saline Flush) 2.5 ml FLUSH ASDIRECTED PRN PRN Reason: Keep Vein Open Last Admin: 05/04/17 20:31 Dose: 2.5 ml Sodium Chloride (Saline Flush) 10 ml FLUSH ASDIRECTED PRN PRN Reason: Keep Vein Open Sodium Chloride (Saline Flush) 2.5 ml FLUSH ASDIRECTED PRN PRN Reason: Keep Vein Open Vancomycin HCl (Pharmacy To Dose - Vancomycin) 1 dose .XX ASDIRECTED HUAN Discontinued Medications Furosemide (Lasix) 40 mg IVPUSH NOW ONE Stop: 05/04/17 20:55 Last Admin: 05/04/17 21:21 Dose: 40 mg Vancomycin HCl 1 gm/ Sodium (Chloride) 250 mls @ 250 mls/hr IV ONETIME ONE Stop: 05/04/17 21:54 Last Admin: 05/04/17 21:19 Dose: 250 mls/hr Vancomycin HCl 1 gm/ Sodium (Chloride) 250 mls @ 166 mls/hr IV ONETIME ONE Stop: 05/05/17 00:30 Last Admin: 05/04/17 23:10 Dose: 166 mls/hr Insulin Aspart (Novolog) 0 unit SUBCUT TIDAC HUAN PRN Reason: Protocol Last Admin: 05/04/17 22:45 Dose: Not Given - Problem List Review Problem List Initiated/Reviewed/Updated: Yes - My Orders Last 24 Hours: My Active Orders 05/04/17 22:23 Blood Glucose Check, Bedside [RC] TIDAC Sodium Chloride 0.9% [Saline Flush] 10 ml FLUSH ASDIRECTED PRN Sodium Chloride 0.9% [Saline Flush] 2.5 ml FLUSH ASDIRECTED PRN Convert IV to Saline Lock [OM.PC] Routine 05/04/17 22:25 Telemetry Monitoring [Cardiac Monitoring] [RC] Q8H 05/04/17 22:30 Vancomycin Pharmacy to Dose [Pharmacy to Dose - Vancomycin] 1 dose .XX ASDIRECTED 05/04/17 22:48 Oxygen Therapy [RC] PRN Up ad Renuka [RC] ASDIRECTED VTE/DVT Education [RC] PER UNIT ROUTINE Vital Signs [RC] Q4H Resuscitation Status Routine 05/04/17 22:49 Intake and Output [RC] Q12H 05/04/17 22:55 CPAP Noctural Home [RT BiPAP/CPAP] [RC] ASDIRECTED 05/04/17 Dinner [employer] Diet [DIET] 05/05/17 07:20 CULTURE URINE [RM] Routine 05/05/17 07:30 Insulin Aspart [NovoLOG] See Protocol SUBCUT TIDAC PRN 05/05/17 07:45 Furosemide [Lasix] 40 mg IVPUSH DAILY 05/05/17 09:00 Carvedilol [Coreg] 12.5 mg PO BID Heparin Sodium 5,000 units SUBCUT Q12HR Insulin Glarg,Human.Rec.Analog [LantUS Solostar] 10 units SUBCUT BID 05/05/17 21:00 Aspirin [Halfprin] 81 mg PO BEDTIME 05/05/17 22:00 Vancomycin 2 gm Sodium Chloride 0.9% [Normal Saline] 500 ml IV Q24H 05/06/17 05:11 BASIC METABOLIC PANEL,BMP [CHEM] AM CBC WITH AUTO DIFF [HEME] AM 05/07/17 05:11 BASIC METABOLIC PANEL,BMP [CHEM] AM CBC WITH AUTO DIFF [HEME] AM - Plan Plan:: 86 yo male admitted with CHF and bilateral lower leg cellulitis. Cellulits: blood cultures ordered, continue Vancomycin, will trend lactic acid , will check UA CHF: received lasix 40mg IV DM: continue lantus and sliding scale novolog Kidney disease: likely chronic will continue to follow creatinine
[2017-05-05] MEDS: Insulin Aspart 100 Units/ML 3 ML Pen SUBCUT PRN ×3 (08:11→17:20)
[2017-05-05] MEDS: Furosemide 40 MG/4 ML VIAL IVPUSH SCH ×2 (08:27→08:31)
[2017-05-05] MEDS ORDERED: Insulin Glargine,Human Rec. Analog 100 Units/ML 3 ML Pen SUBCUT SCH (09:00)
[2017-05-05] MEDS ORDERED: Carvedilol 25 MG Tab PO SCH (09:00)
[2017-05-05] MEDS ORDERED: Losartan 50 MG Tab PO SCH (09:00)
[2017-05-05] MEDS: Heparin Sodium 5,000 Units/ML Vial SUBCUT SCH ×2 (09:44→20:39)
[2017-05-05] MEDS: Insulin Glargine,Human Rec. Analog 100 Units/ML 3 ML Pen SUBCUT SCH (13:00)
[2017-05-05] MEDS: Carvedilol 25 MG Tab PO SCH ×2 (13:02→21:08)
[2017-05-05] MEDS ORDERED: Magnesium Sulfate/Water 2 GM in Premix Bag 1 BAG IV ONE (16:22)
--- NOTE | 2017-05-05 19:01 | CR ---
EXAM DATE: 05/04/17 PATIENT'S AGE: 86 Patient: TEE CHRISTENSEN Facility: [place], [place] Site . Site : 1930 Study: XRay Chest [id number]/4/2017 9:14:37 PM Ordering Physician: Ho Thompson Final Report: HISTORY: Leg swelling. TECHNIQUE: One view of the chest. COMPARISON: 03/13/2017. FINDINGS: Prior sternotomy. AICD with leads terminating within the right atrium and right ventricle. No change in cardiomegaly. No focal infiltrate. No definite pulmonary edema. No pneumothorax. No moderate or large pleural effusion. IMPRESSION: 1. No change in cardiomegaly. 2. No focal infiltrate or pulmonary edema. Dictated by Jamil Pelaez MD @ 05/04/2017 9:20:56 PM Dictated by: Jamil Pelaez MD @ 05/04/2017 21:21:03 (Electronic Signature) Report Signed by Proxy. [facility]
--- NOTE | 2017-05-05 19:02 | CR ---
EXAM DATE: 05/04/17 PATIENT'S AGE: 86 Patient: TEE CHRISTENSEN Facility: [place], [place] Site . Site : 1930 Study: XRay Knee Left [id number]/4/2017 9:15:19 PM Ordering Physician: Ho Thompson Final Report: HISTORY: Left leg swelling, left knee pain. TECHNIQUE: Three views of the left knee. COMPARISON: 04/27/2015. 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 The stems extend beyond the field of view of these knee radiographs. Placed hardware appears intact as visualized and unchanged in position. Chronic new periosteal bone deposition about the distal femur as before. No acute fracture. No definite hardware loosening. No soft tissue gas. 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 No acute fracture or definite hardware loosening within the field of view. Dictated by Jamil Pelaez MD @ 05/04/2017 9:23:36 PM Dictated by: Jamil Pelaez MD @ 05/04/2017 21:23:54 (Electronic Signature) Report Signed by Proxy. JACINTA
--- NOTE | 2017-05-05 19:03 | CR ---
EXAM DATE: 05/04/17 PATIENT'S AGE: 86 Patient: TEE NEW TROY Facility: [place], [place] Site . Site : 1930 Study: XRay Extremity Left tib/fib [id number]/4/2017 9:16:05 PM Ordering Physician: Ho Thompson Final Report: HISTORY: Left leg swelling. TECHNIQUE: Two views of the left tibia and fibula. COMPARISON: Left knee radiographs 04/27/2015. 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 Hardware does not appear frankly loose. No acute fracture or acute bony destructive change. No soft tissue gas. IMPRESSION: No acute fracture or acute bony destructive change. No soft tissue gas. Dictated by Jamil Pelaez MD @ 05/04/2017 9:25:54 PM Dictated by: Jamil Pelaez MD @ 05/04/2017 21:26:02 (Electronic Signature) Report Signed by Proxy. JACINTA
--- NOTE | 2017-05-05 19:04 | CR ---
EXAM DATE: 05/04/17 PATIENT'S AGE: 86 Patient: TEE AUBURN Facility: [place], [place] Site . Site : 1930 Study: XRay Extremity Right tib/fib [id number]/4/2017 9:16:35 PM Ordering Physician: Ho Thompson Final Report: HISTORY: Right leg swelling. TECHNIQUE: Two views of the right tibia and fibula. COMPARISON: No prior. FINDINGS: There is a right knee replacement. The hardware as visualized appears intact. No periprosthetic fracture. Small ossicle adjacent to the medial malleolar tip appears corticated and chronic. There is no acute tibial or fibular fracture. No acute bony destructive change. Patient has likely undergone a prior vein graft harvest. No soft tissue gas. IMPRESSION: No acute fracture or acute bony destructive change. No soft tissue gas. Dictated by Jamli Pelaez MD @ 05/04/2017 9:27:43 PM Dictated by: Jamil Pelaez MD @ 05/04/2017 21:27:50 (Electronic Signature) Report Signed by Proxy. [facility]
[2017-05-05] MEDS ORDERED: Levofloxacin/Dextrose 5%-Water 750 MG in Premix Bag 1 BAG IV SCH (19:30)
[2017-05-05] MEDS: Aspirin 81 MG Tab.EC PO SCH (20:41)
[2017-05-05] MEDS: Rosuvastatin 10 MG Tab PO SCH (20:41)
[2017-05-05] MEDS: Vancomycin 2 GM in Sodium Chloride 0.9% 500 ML IV SCH (22:32)
[2017-05-06] MEDS: Morphine 2 MG/ML Syringe IVPUSH PRN (01:57)
[2017-05-06] MEDS: Insulin Aspart 100 Units/ML 3 ML Pen SUBCUT PRN ×3 (07:23→17:36)
[2017-05-06] MEDS: Heparin Sodium 5,000 Units/ML Vial SUBCUT SCH ×2 (09:16→20:31)
[2017-05-06] MEDS: Insulin Glargine,Human Rec. Analog 100 Units/ML 3 ML Pen SUBCUT SCH (09:17)
[2017-05-06] MEDS: Furosemide 40 MG/4 ML VIAL IVPUSH SCH ×2 (09:17→20:32)
[2017-05-06] MEDS: Carvedilol 25 MG Tab PO SCH ×2 (09:18→20:30)
[2017-05-06] MEDS: Losartan 50 MG Tab PO SCH (09:19)
--- NOTE | 2017-05-06 11:03 | PCM.PN ---
- Review of Systems Systems Review Comment:: feeling better, no new complaints - Patient Data Vitals - Most Recent: Last Vital Signs Temp 36.3 C 05/06/17 08:00 Pulse 64 05/06/17 09:18 Resp 18 05/06/17 08:00 BP 134/56 L 05/06/17 09:19 Pulse Ox 95 05/06/17 08:00 Weight - Most Recent: 136 kg I&O - Last 24 Hours: Intake & Output 05/05/17 05/06/17 05/06/17 22:59 06:59 14:59 Intake Total 950 400 Output Total 650 500 Balance 300 -100 Lab Results Last 24 Hours: Laboratory Results - last 24 hr 05/05/17 05/05/17 05/05/17 Range/Units 05:03 06:07 11:48 WBC (4.0-11.0) K/uL RBC (4.50-5.90) M/uL Hgb (13.0-17.0) g/dL Hct (38.0-50.0) % MCV (80.0-98.0) fL MCH (27.0-32.0) pg MCHC (31.0-37.0) g/dL RDW Std Deviation (28.0-62.0) fl RDW Coeff of Anjana (11.0-15.0) % Plt Count (150-400) K/uL MPV (7.40-12.00) fL Neut % (Auto) (48.0-80.0) % Lymph % (Auto) (16.0-40.0) % [place] % (Auto) (0.0-15.0) % Eos % (Auto) (0.0-7.0) % Baso % (Auto) (0.0-1.5) % Neut # (Auto) (1.4-5.7) K/uL Lymph # (Auto) (0.6-2.4) K/uL [place] # (Auto) (0.0-0.8) K/uL Eos # (Auto) (0.0-0.7) K/uL Baso # (Auto) (0.0-0.1) K/uL Nucleated RBC % /100WBC Nucleated RBCs # K/uL Sodium (136-146) mmol/L Potassium (3.5-5.1) mmol/L Chloride (98-110) mmol/L Carbon Dioxide (21-31) mmol/L BUN (6.0-23.0) mg/dL Creatinine (0.6-1.5) mg/dL Est Cr Clr Drug Dosing mL/min Estimated GFR (MDRD) ml/min Glucose (60-110) mg/dL POC Glucose 188 H 274 H (60-110) mg/dL Calcium (8.8-10.8) mg/dL Magnesium 1.5 (1.5-2.3) mEq/L 05/05/17 05/06/17 05/06/17 Range/Units 17:09 04:16 04:16 WBC 7.82 (4.0-11.0) K/uL RBC 3.10 L (4.50-5.90) M/uL Hgb 9.8 L (13.0-17.0) g/dL Hct 29.9 L (38.0-50.0) % MCV 96.5 (80.0-98.0) fL MCH 31.6 (27.0-32.0) pg MCHC 32.8 (31.0-37.0) g/dL RDW Std Deviation 53.7 (28.0-62.0) fl RDW Coeff of Anjana 15 (11.0-15.0) % Plt Count 136 L (150-400) K/uL MPV 10.30 (7.40-12.00) fL Neut % (Auto) 72.3 (48.0-80.0) % Lymph % (Auto) 10.6 L (16.0-40.0) % [place] % (Auto) 14.7 (0.0-15.0) % Eos % (Auto) 2.3 (0.0-7.0) % Baso % (Auto) 0.1 (0.0-1.5) % Neut # (Auto) 5.7 (1.4-5.7) K/uL Lymph # (Auto) 0.8 (0.6-2.4) K/uL [place] # (Auto) 1.2 H (0.0-0.8) K/uL Eos # (Auto) 0.2 (0.0-0.7) K/uL Baso # (Auto) 0.0 (0.0-0.1) K/uL Nucleated RBC % 0.0 /100WBC Nucleated RBCs # 0 K/uL Sodium 132 L (136-146) mmol/L Potassium 4.4 (3.5-5.1) mmol/L Chloride 102 (98-110) mmol/L Carbon Dioxide 22 (21-31) mmol/L BUN 34 H (6.0-23.0) mg/dL Creatinine 1.6 H (0.6-1.5) mg/dL Est Cr Clr Drug Dosing 33.03 mL/min Estimated GFR (MDRD) 41.2 ml/min Glucose 184 H (60-110) mg/dL POC Glucose 199 H (60-110) mg/dL Calcium 8.0 L (8.8-10.8) mg/dL Magnesium (1.5-2.3) mEq/L 05/06/17 Range/Units 06:38 WBC (4.0-11.0) K/uL RBC (4.50-5.90) M/uL Hgb (13.0-17.0) g/dL Hct (38.0-50.0) % MCV (80.0-98.0) fL MCH (27.0-32.0) pg MCHC (31.0-37.0) g/dL RDW Std Deviation (28.0-62.0) fl RDW Coeff of Anjana (11.0-15.0) % Plt Count (150-400) K/uL MPV (7.40-12.00) fL Neut % (Auto) (48.0-80.0) % Lymph % (Auto) (16.0-40.0) % [place] % (Auto) (0.0-15.0) % Eos % (Auto) (0.0-7.0) % Baso % (Auto) (0.0-1.5) % Neut # (Auto) (1.4-5.7) K/uL Lymph # (Auto) (0.6-2.4) K/uL [place] # (Auto) (0.0-0.8) K/uL Eos # (Auto) (0.0-0.7) K/uL Baso # (Auto) (0.0-0.1) K/uL Nucleated RBC % /100WBC Nucleated RBCs # K/uL Sodium (136-146) mmol/L Potassium (3.5-5.1) mmol/L Chloride (98-110) mmol/L Carbon Dioxide (21-31) mmol/L BUN (6.0-23.0) mg/dL Creatinine (0.6-1.5) mg/dL Est Cr Clr Drug Dosing mL/min Estimated GFR (MDRD) ml/min Glucose (60-110) mg/dL POC Glucose 161 H (60-110) mg/dL Calcium (8.8-10.8) mg/dL Magnesium (1.5-2.3) mEq/L Med Orders - Current: Current Medications Aspirin (Halfprin) 81 mg PO BEDTIME [facility] Last Admin: 05/05/17 20:41 Dose: 81 mg Carvedilol (Coreg) 12.5 mg PO BID [facility] Last Admin: 05/06/17 09:18 Dose: 12.5 mg Furosemide (Lasix) 40 mg IVPUSH BID [facility] Heparin Sodium (Porcine) (Heparin Sodium) 5,000 units SUBCUT Q12HR [facility] Last Admin: 05/06/17 09:16 Dose: 5,000 units Vancomycin HCl 2 gm/ Sodium (Chloride) 500 mls @ 250 mls/hr IV Q24H [facility] Last Admin: 05/05/17 22:32 Dose: 250 mls/hr Levofloxacin/Dextrose 750 mg/ (Premix) 150 mls @ 100 mls/hr IV Q48H [facility] Last Admin: 05/05/17 20:29 Dose: 100 mls/hr Insulin Aspart (Novolog) 0 unit SUBCUT TIDAC PRN; Protocol PRN Reason: Blood Glucose Last Admin: 05/06/17 07:23 Dose: 2 units Insulin Glargine (Lantus Solostar) 40 units SUBCUT DAILY [facility] Last Admin: 05/06/17 09:17 Dose: 40 units Losartan Potassium (Cozaar) 25 mg PO DAILY [facility] Last Admin: 05/06/17 09:19 Dose: 25 mg Morphine Sulfate (Morphine) 2 mg IVPUSH Q2H PRN PRN Reason: Pain Last Admin: 05/06/17 01:57 Dose: 2 mg Oxycodone HCl (Oxycodone) 5 mg PO Q4H PRN PRN Reason: Pain Rosuvastatin Calcium (Crestor) 20 mg PO BEDTIME [facility] Last Admin: 05/05/17 20:41 Dose: 20 mg Sodium Chloride (Saline Flush) 10 ml FLUSH ASDIRECTED PRN PRN Reason: Keep Vein Open Last Admin: 05/04/17 20:31 Dose: 10 ml Sodium Chloride (Saline Flush) 2.5 ml FLUSH ASDIRECTED PRN PRN Reason: Keep Vein Open Last Admin: 05/04/17 20:31 Dose: 2.5 ml Sodium Chloride (Saline Flush) 10 ml FLUSH ASDIRECTED PRN PRN Reason: Keep Vein Open Sodium Chloride (Saline Flush) 2.5 ml FLUSH ASDIRECTED PRN PRN Reason: Keep Vein Open Vancomycin HCl (Pharmacy To Dose - Vancomycin) 1 dose .XX ASDIRECTED [facility] Discontinued Medications Carvedilol (Coreg) 12.5 mg PO BID [facility] Furosemide (Lasix) 40 mg IVPUSH NOW ONE Stop: 05/04/17 20:55 Last Admin: 05/04/17 21:21 Dose: 40 mg Furosemide (Lasix) 40 mg IVPUSH DAILY [facility] Last Admin: 05/06/17 09:17 Dose: 40 mg Vancomycin HCl 1 gm/ Sodium (Chloride) 250 mls @ 250 mls/hr IV ONETIME ONE Stop: 05/04/17 21:54 Last Admin: 05/04/17 21:19 Dose: 250 mls/hr Vancomycin HCl 1 gm/ Sodium (Chloride) 250 mls @ 166 mls/hr IV ONETIME ONE Stop: 05/05/17 00:30 Last Admin: 05/04/17 23:10 Dose: 166 mls/hr Magnesium Sulfate 2 gm/ Premix 50 mls @ 50 mls/hr IV ONETIME ONE Stop: 05/05/17 17:21 Last Admin: 05/05/17 16:41 Dose: 50 mls/hr Insulin Aspart (Novolog) 0 unit SUBCUT TIDAC [facility] PRN Reason: Protocol Last Admin: 05/04/17 22:45 Dose: Not Given Insulin Glargine (Lantus Solostar) 10 units SUBCUT BID [facility] Losartan Potassium (Cozaar) 50 mg PO DAILY [facility] Last Admin: 05/05/17 09:41 Dose: 50 mg - Exam General: Alert, Oriented Lungs: Clear to Auscultation, Normal Respiratory Effort Cardiovascular: Regular Rate, Regular Rhythm GI/Abdominal Exam: Normal Bowel Sounds, Soft, No Distention Extremities: Other (edema and erythema of bilateral lower legs improving) - Problem List Review Problem List Initiated/Reviewed/Updated: Yes - My Orders Last 24 Hours: My Active Orders 05/05/17 12:00 Carvedilol [Coreg] 12.5 mg PO BID Insulin Glarg,Human.Rec.Analog [LantUS Solostar] 40 units SUBCUT DAILY 05/05/17 19:30 Levofloxacin/Dextrose 5%-Water [Levaquin in D5W 750 MG/150 ML] 750 mg Premix Bag 1 bag IV Q48H 05/05/17 21:00 Aspirin [Halfprin] 81 mg PO BEDTIME Rosuvastatin [Crestor] 20 mg PO BEDTIME 05/05/17 22:00 Vancomycin 2 gm Sodium Chloride 0.9% [Normal Saline] 500 ml IV Q24H 05/06/17 01:30 oxyCODONE 5 mg PO Q4H PRN 05/06/17 01:31 Morphine 2 mg IVPUSH Q2H PRN 05/06/17 09:00 Losartan [Cozaar] 25 mg PO DAILY 05/06/17 21:00 Furosemide [Lasix] 40 mg IVPUSH BID 05/07/17 05:11 BASIC METABOLIC PANEL,BMP [CHEM] AM CBC WITH AUTO DIFF [HEME] AM - Plan Plan:: 86 yo male admitted with CHF and bilateral lower leg cellulitis. Cellulits: continue Vancomycin, levaquin added yesterday to cover UTI CHF: continue lasix IV DM: continue lantus and sliding scale novolog Kidney disease: likely chronic will continue to follow creatinine
[2017-05-06] MEDS: oxyCODONE 5 MG Tab PO PRN ×2 (15:54→22:31)
[2017-05-06] MEDS: Aspirin 81 MG Tab.EC PO SCH (20:30)
[2017-05-06] MEDS: Rosuvastatin 10 MG Tab PO SCH (20:36)
[2017-05-06] MEDS: Vancomycin 2 GM in Sodium Chloride 0.9% 500 ML IV SCH (21:44)
[2017-05-07] MEDS: Morphine 2 MG/ML Syringe IVPUSH PRN (02:13)
[2017-05-07] MEDS: Insulin Aspart 100 Units/ML 3 ML Pen SUBCUT PRN (07:09)
[2017-05-07] MEDS: Losartan 50 MG Tab PO SCH (08:05)
[2017-05-07] MEDS: Carvedilol 25 MG Tab PO SCH (08:06)
[2017-05-07] MEDS: Furosemide 40 MG/4 ML VIAL IVPUSH SCH (08:06)
[2017-05-07] MEDS: Heparin Sodium 5,000 Units/ML Vial SUBCUT SCH (08:07)
[2017-05-07] MEDS: Insulin Glargine,Human Rec. Analog 100 Units/ML 3 ML Pen SUBCUT SCH (08:14)
[2017-05-07] MEDS: oxyCODONE 5 MG Tab PO PRN ×2 (10:03→15:22)
[2017-05-07 18:08] VITALS: BP 120/56
--- NOTE | 2017-05-26 08:13 | PCM.DCSUM1 ---
Discharge Summary - Hospital Course Free Text/Narrative:: The patient was admitted secondary to lower extremity cellulitis - Discharge Data Discharge Date: 05/07/17 Discharge Disposition: Home, Self-Care 01 Condition: Fair - Patient Summary/Data Consults: Consultations 05/05/17 12:35 Consult to Physical Therapy [PT Evaluation and Treatment] [CONS] Routine Hospital Course: The patient is an 86-year-old gentleman who was admitted on May 04, 2017 out of concern for swelling of his lower leg and the patient does have a previous history of cellulitis involving his bilateral lower leg. Patient was somewhat confused in the emergency room and he was admitted secondary to lower extremity cellulitis. The patient has a chronic medical history of diabetes mellitus, hypertension, coronary artery disease, CHF systolic and he was admitted also with a lactic acid level of 2.3. The patient had been given Lasix and started on vancomycin in the emergency department. His white blood cell count was also noted to be elevated at 17,300. Blood cultures and urine cultures were obtained and these were showing no growth. By the third day of hospitalization the patient's white blood cell count had improved to 7.8 thousand and his lactic acid had normalized. The patient had continued to improve and he was noted be ready for discharge on May 07, 2017. The patient was discharged to home with a diagnosis of lower extremity cellulitis along with systolic CHF exacerbation. He was recommended to continue on his home medications as prescribed. The patient is also to have a low-fat, diabetic diet as tolerated and exercise as tolerated. The patient was also discharged on Zyvox 600 mg by mouth twice a day until gone and this was given for skin and soft tissue infection. The patient has been recommended to follow-up with his primary care physician. His vital signs are stable. The patient's blood pressure is 139/63 mmHg. - Patient Instructions Diet: Diabetic Diet Activity: As Tolerated - Discharge Plan Prescriptions/Med Rec: Linezolid [Zyvox] 600 mg PO Q12H 5 Days #10 tablet Home Medications: Home Meds Bumetanide [Bumex] 1 mg PO DAILY 08/26/14 [History] Carvedilol 12.5 mg PO BID 08/26/14 [History] Insulin Aspart [Novolog Flexpen] 10 units SUBCUT TIDAC 08/26/14 [History] Insulin Glarg,Human.Rec.Analog [Lantus] 40 unit SUBCUT DAILY 08/26/14 [History] Rosuvastatin [Crestor] 20 mg PO BEDTIME 08/26/14 [History] Aspirin [Halfprin] 81 mg PO BEDTIME 03/13/17 [History] Losartan [Cozaar] 25 mg PO DAILY 03/13/17 [History] Docusate Sodium 300 mg PO BID 03/16/17 [History] Sennosides [Senna] 1 tab PO BID 03/16/17 [History] Acetaminophen/HYDROcodone [Bedford 325-5 MG] 5 - 325 mg PO Q6H PRN 05/05/17 [ History] Doxycycline Hyclate 100 mg PO Q12H 05/05/17 [History] Potassium 99 mg PO DAILY 05/05/17 [History] Tamsulosin [Flomax] 0.4 mg PO PCBREAKFAST 05/05/17 [History] Linezolid [Zyvox] 600 mg PO Q12H 5 Days #10 tablet 05/07/17 [Rx] Patient Handouts: Cellulitis, Adult, Linezolid tablets, Heart Failure, Easy-to- Read Referrals: Prince Echevarria MD [Ordering Only Provider] - 05/14/17 12:30 pm - Discharge Summary/Plan Comment DC Time >30 min.: Yes - General Info Admission Dx/Problem (Free Text: Admission Diagnosis/Problem Admission Diagnosis/Problem Cellulitis Functional Status: Reports: Pain Controlled, Tolerating Diet - Review of Systems General: Reports: No Symptoms HEENT: Reports: No Symptoms Pulmonary: Reports: No Symptoms Cardiovascular: Reports: No Symptoms Gastrointestinal: Reports: No Symptoms Genitourinary: Reports: No Symptoms Musculoskeletal: Reports: No Symptoms Skin: Reports: Rash Neurological: Reports: No Symptoms Psychiatric: Reports: No Symptoms - Patient Data Vitals - Most Recent: Last Vital Signs Temp 36.6 C 05/07/17 12:00 Pulse 63 05/07/17 12:00 Resp 18 05/07/17 12:00 BP 120/56 L 05/07/17 12:00 Pulse Ox 95 05/07/17 12:00 Weight - Most Recent: 134.49 kg Med Orders - Current: Current Medications Discontinued Medications Aspirin (Halfprin) 81 mg PO BEDTIME HUAN Last Admin: 05/06/17 20:30 Dose: 81 mg Carvedilol (Coreg) 12.5 mg PO BID [facility] Carvedilol (Coreg) 12.5 mg PO BID [facility] Last Admin: 05/07/17 08:06 Dose: 12.5 mg Furosemide (Lasix) 40 mg IVPUSH NOW ONE Stop: 05/04/17 20:55 Last Admin: 05/04/17 21:21 Dose: 40 mg Furosemide (Lasix) 40 mg IVPUSH DAILY [facility] Last Admin: 05/06/17 09:17 Dose: 40 mg Furosemide (Lasix) 40 mg IVPUSH BID [facility] Last Admin: 05/07/17 08:06 Dose: 40 mg Heparin Sodium (Porcine) (Heparin Sodium) 5,000 units SUBCUT Q12HR [facility] Last Admin: 05/07/17 08:07 Dose: 5,000 units Vancomycin HCl 1 gm/ Sodium (Chloride) 250 mls @ 250 mls/hr IV ONETIME ONE Stop: 05/04/17 21:54 Last Admin: 05/04/17 21:19 Dose: 250 mls/hr Vancomycin HCl 1 gm/ Sodium (Chloride) 250 mls @ 166 mls/hr IV ONETIME ONE Stop: 05/05/17 00:30 Last Admin: 05/04/17 23:10 Dose: 166 mls/hr Vancomycin HCl 2 gm/ Sodium (Chloride) 500 mls @ 250 mls/hr IV Q24H [facility] Last Admin: 05/06/17 21:44 Dose: 250 mls/hr Magnesium Sulfate 2 gm/ Premix 50 mls @ 50 mls/hr IV ONETIME ONE Stop: 05/05/17 17:21 Last Admin: 05/05/17 16:41 Dose: 50 mls/hr Levofloxacin/Dextrose 750 mg/ (Premix) 150 mls @ 100 mls/hr IV Q48H [facility] Last Admin: 05/05/17 20:29 Dose: 100 mls/hr Insulin Aspart (Novolog) 0 unit SUBCUT TIDAC [facility] PRN Reason: Protocol Last Admin: 05/04/17 22:45 Dose: Not Given Insulin Aspart (Novolog) 0 unit SUBCUT TIDAC PRN; Protocol PRN Reason: Blood Glucose Last Admin: 05/07/17 07:09 Dose: 2 units Insulin Glargine (Lantus Solostar) 10 units SUBCUT BID [facility] Insulin Glargine (Lantus Solostar) 40 units SUBCUT DAILY [facility] Last Admin: 05/07/17 08:14 Dose: 40 units Losartan Potassium (Cozaar) 50 mg PO DAILY [facility] Last Admin: 05/05/17 09:41 Dose: 50 mg Losartan Potassium (Cozaar) 25 mg PO DAILY [facility] Last Admin: 05/07/17 08:05 Dose: 25 mg Morphine Sulfate (Morphine) 2 mg IVPUSH Q2H PRN PRN Reason: Pain Last Admin: 05/07/17 02:13 Dose: 2 mg Oxycodone HCl (Oxycodone) 5 mg PO Q4H PRN PRN Reason: Pain Last Admin: 05/07/17 15:22 Dose: 5 mg Rosuvastatin Calcium (Crestor) 20 mg PO BEDTIME [facility] Last Admin: 05/06/17 20:36 Dose: 20 mg Sodium Chloride (Saline Flush) 10 ml FLUSH ASDIRECTED PRN PRN Reason: Keep Vein Open Last Admin: 05/04/17 20:31 Dose: 10 ml Sodium Chloride (Saline Flush) 2.5 ml FLUSH ASDIRECTED PRN PRN Reason: Keep Vein Open Last Admin: 05/04/17 20:31 Dose: 2.5 ml Sodium Chloride (Saline Flush) 10 ml FLUSH ASDIRECTED PRN PRN Reason: Keep Vein Open Sodium Chloride (Saline Flush) 2.5 ml FLUSH ASDIRECTED PRN PRN Reason: Keep Vein Open Vancomycin HCl (Pharmacy To Dose - Vancomycin) 1 dose .XX ASDIRECTED HUAN - Exam Quality Assessment: Denies: Supplemental Oxygen General: Reports: Alert HEENT: Reports: Pupils Equal, Pupils Reactive Neck: Reports: Supple, Trachea Midline Lungs: Reports: Clear to Auscultation Cardiovascular: Reports: Regular Rate, Regular Rhythm GI/Abdominal Exam: Normal Bowel Sounds, Soft, No Distention Back Exam: Reports: Decreased Range of Motion Extremities: Pedal Edema Skin: Reports: Warm, Dry Neurological: Reports: No New Focal Deficit Psy/Mental Status: Reports: Normal Affect *Q Meaningful Use (DIS) - VTE *Q VTE Criteria *Q: VTE Mechanical Contraindications *Q: At Risk for Falls - Stroke *Q Stroke Criteria *Q: - AMI *Q AMI Criteria *Q:
== END 2017-05-07 15:40 | disposition home or self-care (01) | DRG 292 ==
LOC: MW.ED 19:52 → MW.MS 21:01
PROVIDERS: ADMIT Internal Medicine; ATTEND Internal Medicine
DX: I13.0 Hypertensive heart and chronic kidney disease with heart failure and stage 1 through stage 4 chronic kidney disease, or unspecified chronic kidney disease (principal); L03.116 Cellulitis of left lower limb; E78.00 Pure hypercholesterolemia, unspecified; L03.115 Cellulitis of right lower limb; E11.9 Type 2 diabetes mellitus without complications; N39.0 Urinary tract infection, site not specified; N18.9 Chronic kidney disease, unspecified; I10 Essential (primary) hypertension; I25.10 Atherosclerotic heart disease of native coronary artery without angina pectoris; I50.9 Heart failure, unspecified; G47.33 Obstructive sleep apnea (adult) (pediatric); Z95.810 Presence of automatic (implantable) cardiac defibrillator; Z79.899 Other long term (current) drug therapy; Z79.4 Long term (current) use of insulin
CPT/HCPCS: 36415; 71010; 71010-26; 73562-26-LT; 73562-LT; 73590-26-LT; 73590-26-RT; 73590-LT; 73590-RT; 80048; 80053; 81001; 82962; 83605; 83735; 83880; 84484; 85025; 85610; 87040; 87086; 93005; 96374; 96375; 97161-GP; 99283; 99285-25; A9270-GY; J1644; J1815-GY; J1940; J1956; J2270; J3370; J3475; J7040; J7050

== ENCOUNTER 2018-12-26 09:30 | Observation (INO) | payer BC, MEDICARE ==
[2018-12-26] MEDS ORDERED: Diphtheria,Pertussis(Acell),Tetanus Vaccine 0.5 ML Syringe IM ONE (09:43)
--- NOTE | 2018-12-26 09:56 | EDM.PDOC ---
ED HPI GENERAL MEDICAL PROBLEM - General Chief Complaint: Laceration Stated Complaint: CUT ON LT LEG. ON BLOOD THINNERS Time Seen by Provider: 12/26/18 09:42 - History of Present Illness INITIAL COMMENTS - FREE TEXT/NARRATIVE: HISTORY AND PHYSICAL: History of present illness: Patient is an 87 [id number] white male who presents status post left leg injury patient struck his left anterior leg while getting into the truck hitting it on a running board sustaining a large laceration is no other trauma or concern Review of systems: As per history of present illness and below otherwise all systems reviewed and negative. Past medical history: As per history of present illness and as reviewed below otherwise noncontributory. Surgical history: As per history of present illness and as reviewed below otherwise noncontributory. Social history: No reported history of drug or alcohol abuse. Family history: As per history of present illness and as reviewed below otherwise noncontributory. Physical exam: HEENT: Atraumatic, normocephalic, pupils reactive, negative for conjunctival pallor or scleral icterus, mucous membranes moist, throat clear, neck supple, nontender, trachea midline. Lungs: Clear to auscultation, breath sounds equal bilaterally, chest nontender. Heart: S1S2, regular, negative for clicks, rubs, or JVD. Abdomen: Soft, nondistended, nontender. Negative for masses or hepatosplenomegaly. Negative for costovertebral tenderness. Pelvis: Stable nontender. Genitourinary: Deferred. Rectal: Deferred. Extremities: Patient has a large slightly gaping V-shaped laceration is approximately 25 cm in length neurovascular exam CMS are unremarkable Neuro: Awake, alert, oriented. Cranial nerves II through XII unremarkable. Cerebellum unremarkable. Motor and sensory unremarkable throughout. Exam nonfocal. Diagnostics: X-ray left leg Therapeutics: As per general surgery Impression: #1 left leg injury with laceration Definitive disposition and diagnosis as appropriate pending reevaluation and review of above. Right Lower Leg Pain Score (Numeric/FACES): 2 - Related Data Allergies Allergy/AdvReac Type Severity Reaction Status Date / Time No Known Allergies Allergy Verified 03/13/17 18:54 Home Meds: Home Meds Bumetanide [Bumex] 1 mg PO DAILY 08/26/14 [History] Insulin Aspart [Novolog Flexpen] 10 units SUBCUT TIDAC 08/26/14 [History] Insulin Glarg,Human.Rec.Analog [Lantus] 40 unit SUBCUT DAILY 08/26/14 [History] Rosuvastatin [Crestor] 20 mg PO BEDTIME 08/26/14 [History] Aspirin [Halfprin] 81 mg PO BEDTIME 03/13/17 [History] Losartan [Cozaar] 25 mg PO DAILY 03/13/17 [History] Acetaminophen/HYDROcodone [Burton 325-5 MG] 5 - 325 mg PO Q6H PRN 05/05/17 [ History] Amoxicillin/Clavulanate K [Augmentin 875-125 MG] 500 mg PO DAILY 12/26/18 [ History] Carvedilol [Coreg] mg PO BID 12/26/18 [History] Clindamycin HCl [Cleocin HCl] 300 mg PO TID 12/26/18 [History] Docusate Calcium 240 mg PO TID 12/26/18 [History] Finasteride [Proscar] 1 tab PO DAILY 12/26/18 [History] Lidocaine 35.44 gm TP DAILY 12/26/18 [History] Tamsulosin HCl 1 tab PO DAILY 12/26/18 [History] Past Medical History HEENT History: Reports: Hard of Hearing Cardiovascular History: Reports: Automatic Implantable Cardioverter Defibrillators, High Cholesterol, Hypertension Respiratory History: Reports: None Gastrointestinal History: Reports: Other (See Below) Other Gastrointestinal History: "Water on the belly" Genitourinary History: Reports: None Musculoskeletal History: Reports: Arthritis Neurological History: Reports: None Psychiatric History: Reports: None Endocrine/Metabolic History: Reports: Diabetes, Type II Hematologic History: Reports: None Immunologic History: Reports: None Oncologic (Cancer) History: Reports: None Dermatologic History: Reports: None Other Dermatologic History: cellulitis of left leg - Infectious Disease History Infectious Disease History: Reports: None - Past Surgical History Musculoskeletal Surgical History: Reports: Other (See Below) Social & Family History - Family History Family Medical History: Noncontributory - Caffeine Use Caffeine Use: Reports: Coffee ED ROS GENERAL - Review of Systems Review Of Systems: ROS reveals no pertinent complaints other than HPI. ED EXAM, SKIN/RASH Exam: See Below (See dictation) Course - Vital Signs Last Recorded V/S: Last Vital Signs Temp 36.3 C 12/26/18 09:43 Pulse 64 12/26/18 13:00 Resp 20 12/26/18 13:17 BP 132/67 12/26/18 13:00 Pulse Ox 92 L 12/26/18 13:17 - Orders/Labs/Meds Orders: Active Orders 24 hr Category Date Time Status Accu Check [Blood Glucose Check, Bedside] [RC] TIDMEALS Care 12/26/18 12:27 Active Antiembolic Devices [RC] PER UNIT ROUTINE Care 12/26/18 11:59 Active Blood Glucose Check, Bedside [RC] PRN Care 12/26/18 13:20 Active EKG Documentation Completion [RC] STAT Care 12/26/18 11:56 Active Intake and Output [RC] QSHIFT Care 12/26/18 11:58 Active Notify Provider Consults [RC] ASDIRECTED Care 12/26/18 12:01 Active Oxygen Therapy [RC] ASDIRECTED Care 12/26/18 13:20 Active Oxygen Therapy [RC] PRN Care 12/26/18 11:58 Active Pulse Oximetry [RC] INTERMITTENT Care 12/26/18 11:58 Active Vaccines to be Administered [RC] PER UNIT ROUTINE Care 12/26/18 09:43 Active Vital Signs [RC] PER UNIT ROUTINE Care 12/26/18 11:57 Active Vital Signs [RC] PER UNIT ROUTINE Care 12/26/18 13:20 Active Consult to Physician [CONS] Urgent Cons 12/26/18 11:59 Active Acetaminophen/HYDROcodone [Burton 325-5 MG] Med 12/26/18 13:20 Active 2 tab PO Q6H PRN Albuterol [Proventil Neb Soln] Med 12/26/18 13:20 Active 2.5 mg NEB Q6HRRT PRN Atropine [Atropine 1 MG/ML] Med 12/26/18 13:20 Active 0.4 mg IVPUSH Q5M PRN Clindamycin HCl [Cleocin HCl] Med 12/26/18 14:00 Active 300 mg PO TID HYDROmorphone [Dilaudid] Med 12/26/18 13:20 Active 0.25 mg IVPUSH Q10M PRN Labetalol [Normodyne] Med 12/26/18 13:20 Active 10 mg IVPUSH Q6H PRN Lactated Ringers [Ringers, Lactated] 1,000 ml Med 12/26/18 12:00 Active IV ASDIRECTED Lactated Ringers [Ringers, Lactated] 1,000 ml Med 12/26/18 12:00 Active IV ASDIRECTED Meperidine [Demerol] Med 12/26/18 13:20 Active 12.5 mg IVPUSH ONETIME PRN Meperidine [Demerol] Med 12/26/18 13:20 Active 25 mg IV ONETIME PRN Metoclopramide [Reglan] Med 12/26/18 13:20 Active 10 mg IVPUSH ONETIME PRN Morphine Med 12/26/18 13:20 Active 4 mg IVPUSH Q10M PRN Naloxone [Narcan] Med 12/26/18 13:20 Active 0.1 mg IVPUSH ONETIME PRN Ondansetron [Zofran] Med 12/26/18 13:20 Active 8 mg IVPUSH ONETIME PRN Promethazine [Phenergan] Med 12/26/18 13:20 Active 12.5 mg IM ONETIME PRN Scopolamine [Transderm-Scop] Med 12/26/18 13:20 Active 1.5 mg TRDERM Q72H PRN ceFAZolin [Ancef] 2 gm Med 12/26/18 12:15 Active Premix Bag 1 bag IV ONETIME fentaNYL [Sublimaze] Med 12/26/18 13:20 Active 50 mcg IVPUSH Q5M PRN hydrALAZINE [Apresoline] Med 12/26/18 13:20 Active 10 mg IVPUSH ONETIME PRN hydrALAZINE [Apresoline] Med 12/26/18 13:20 Active 5 mg IVPUSH ONETIME PRN Sequential Compression Device [OM.PC] Routine Oth 12/26/18 11:58 Ordered Resuscitation Status Routine Resus Stat 12/26/18 11:57 Ordered Medication Orders Acetaminophen (Tylenol) 325 mg PO Q4H PRN PRN Reason: Fever Greater Than 101 Hydrocodone Bitart/Acetaminophen (Burton 325-5 Mg) 2 tab PO Q6H PRN PRN Reason: Pain (moderate 4-6) Hydrocodone Bitart/Acetaminophen (Burton 325-5 Mg) 1 tab PO Q6H PRN PRN Reason: Pain (moderate 4-6) Albuterol (Proventil Neb Soln) 2.5 mg NEB Q6HRRT PRN PRN Reason: Wheezing Atropine Sulfate (Atropine 1 Mg/Ml) 0.4 mg IVPUSH Q5M PRN PRN Reason: Bradycardia Fentanyl (Sublimaze) 50 mcg IVPUSH Q5M PRN PRN Reason: Pain (severe 7-10) Stop: 12/27/18 13:20 Hydralazine HCl (Apresoline) 5 mg IVPUSH ONETIME PRN PRN Reason: Hypertension Hydralazine HCl (Apresoline) 10 mg IVPUSH ONETIME PRN PRN Reason: Hypertension Hydromorphone HCl (Dilaudid) 0.25 mg IVPUSH Q10M PRN PRN Reason: Pain (severe 7-10) Stop: 12/27/18 13:20 Cefazolin Sodium/Dextrose 2 gm (/ Premix) 50 mls @ 100 mls/hr IV ONETIME [facility] Last Admin: 12/26/18 12:29 Dose: 100 mls/hr Lactated Ringer's (Ringers, Lactated) 1,000 mls @ 125 mls/hr IV ASDIRECTED [facility] Last Admin: 12/26/18 12:31 Dose: 125 mls/hr Lactated Ringer's (Ringers, Lactated) 1,000 mls @ 125 mls/hr IV ASDIRECTED [facility] Lactated Ringer's (Ringers, Lactated) 1,000 mls @ 80 mls/hr IV ASDIRECTED [facility] Cefazolin Sodium/Dextrose 1 gm (/ Premix) 50 mls @ 100 mls/hr IV Q8H [facility] Stop: 12/27/18 07:44 Labetalol HCl (Normodyne) 10 mg IVPUSH Q6H PRN PRN Reason: Hypertension Stop: 12/27/18 13:20 Meperidine HCl (Demerol) 12.5 mg IVPUSH ONETIME PRN PRN Reason: Shivering Meperidine HCl (Demerol) 25 mg IV ONETIME PRN PRN Reason: Shivering Metoclopramide HCl (Reglan) 10 mg IVPUSH ONETIME PRN PRN Reason: Nausea Morphine Sulfate (Morphine) 4 mg IVPUSH Q10M PRN PRN Reason: Pain (severe 7-10) Stop: 12/27/18 13:20 Morphine Sulfate (Morphine) 1 - 5 mg IVPUSH Q1H PRN PRN Reason: Pain (severe 7-10) Naloxone HCl (Narcan) 0.1 mg IVPUSH ONETIME PRN PRN Reason: Respiratory Depression Non-Formulary Medication (Clindamycin Hcl [Cleocin Hcl]) 300 mg PO TID HUAN Ondansetron HCl (Zofran) 8 mg IVPUSH ONETIME PRN PRN Reason: Nausea Promethazine HCl (Phenergan) 12.5 mg IM ONETIME PRN PRN Reason: Nausea Scopolamine (Transderm-Scop) 1.5 mg TRDERM Q72H PRN PRN Reason: Nausea Labs: Laboratory Tests 12/26/18 12/26/18 Range/Units 11:55 11:55 WBC 6.80 (4.0-11.0) K/uL RBC 3.42 L (4.50-5.90) M/uL Hgb 10.8 L (13.0-17.0) g/dL Hct 34.1 L (38.0-50.0) % MCV 99.7 H (80.0-98.0) fL MCH 31.6 (27.0-32.0) pg MCHC 31.7 (31.0-37.0) g/dL RDW Std Deviation 55.3 (28.0-62.0) fl RDW Coeff of Anjana 15 (11.0-15.0) % Plt Count 176 (150-400) K/uL MPV 10.10 (7.40-12.00) fL Neut % (Auto) 66.2 (48.0-80.0) % Lymph % (Auto) 16.3 (16.0-40.0) % [place] % (Auto) 13.5 (0.0-15.0) % Eos % (Auto) 3.7 (0.0-7.0) % Baso % (Auto) 0.3 (0.0-1.5) % Neut # (Auto) 4.5 (1.4-5.7) K/uL Lymph # (Auto) 1.1 (0.6-2.4) K/uL [place] # (Auto) 0.9 H (0.0-0.8) K/uL Eos # (Auto) 0.3 (0.0-0.7) K/uL Baso # (Auto) 0.0 (0.0-0.1) K/uL Nucleated RBC % 0.0 /100WBC Nucleated RBCs # 0 K/uL Sodium 140 (136-148) mmol/L Potassium 4.0 (3.5-5.1) mmol/L Chloride 106 (98-107) mmol/L Carbon Dioxide 23.6 (21.0-32.0) mmol/L BUN 28 H (7.0-18.0) mg/dL Creatinine 1.7 H (0.8-1.3) mg/dL Est Cr Clr Drug Dosing 30.61 mL/min Estimated GFR (MDRD) 38.3 ml/min Glucose 72 L (74-106) mg/dL Calcium 8.6 (8.5-10.1) mg/dL Total Bilirubin 0.7 (0.2-1.0) mg/dL AST 16 (15-37) IU/L ALT 9 L (14-63) IU/L Alkaline Phosphatase 100 (46-116) U/L Total Protein 6.9 (6.4-8.2) g/dL Albumin 3.2 L (3.4-5.0) g/dL Globulin 3.7 (2.6-4.0) g/dL Albumin/Globulin Ratio 0.9 (0.9-1.6) Meds: Medications Generic Name Dose Route Start Last Admin Trade Name Freq PRN Reason Stop Dose Admin Acetaminophen 325 mg 12/26/18 15:08 Tylenol PO Q4H PRN Fever Greater Than 101 Hydrocodone Bitart/Acetaminophen 2 tab 12/26/18 13:20 Burton 325-5 Mg PO Q6H PRN Pain (moderate 4-6) Hydrocodone Bitart/Acetaminophen 1 tab 12/26/18 15:08 Burton 325-5 Mg PO Q6H PRN Pain (moderate 4-6) Albuterol 2.5 mg 12/26/18 13:20 Proventil Neb Soln NEB Q6HRRT PRN Wheezing Atropine Sulfate 0.4 mg 12/26/18 13:20 Atropine 1 Mg/Ml IVPUSH Q5M PRN Bradycardia Fentanyl 50 mcg 12/26/18 13:20 Sublimaze IVPUSH 12/27/18 13:20 Q5M PRN Pain (severe 7-10) Hydralazine HCl 5 mg 12/26/18 13:20 Apresoline IVPUSH ONETIME PRN Hypertension Hydralazine HCl 10 mg 12/26/18 13:20 Apresoline IVPUSH ONETIME PRN Hypertension Hydromorphone HCl 0.25 mg 12/26/18 13:20 Dilaudid IVPUSH 12/27/18 13:20 Q10M PRN Pain (severe 7-10) Cefazolin Sodium/Dextrose 2 gm 50 mls @ 100 mls/hr 12/26/18 12:15 12/26/18 12 :29 / Premix IV 100 mls/hr ONETIME HUAN Administration Lactated Ringer's 1,000 mls @ 125 mls/hr 12/26/18 12:00 12/26/18 12:31 Ringers, Lactated IV 125 mls/hr ASDIRECTED HUAN Administration Lactated Ringer's 1,000 mls @ 125 mls/hr 12/26/18 12:00 Ringers, Lactated IV ASDIRECTED HUAN Lactated Ringer's 1,000 mls @ 80 mls/hr 12/26/18 15:15 Ringers, Lactated IV ASDIRECTED HUAN Cefazolin Sodium/Dextrose 1 gm 50 mls @ 100 mls/hr 12/26/18 15:15 / Premix IV 12/27/18 07:44 Q8H HUAN Labetalol HCl 10 mg 12/26/18 13:20 Normodyne IVPUSH 12/27/18 13:20 Q6H PRN Hypertension Meperidine HCl 12.5 mg 12/26/18 13:20 Demerol IVPUSH ONETIME PRN Shivering Meperidine HCl 25 mg 12/26/18 13:20 Demerol IV ONETIME PRN Shivering Metoclopramide HCl 10 mg 12/26/18 13:20 Reglan IVPUSH ONETIME PRN Nausea Morphine Sulfate 4 mg 12/26/18 13:20 Morphine IVPUSH 12/27/18 13:20 Q10M PRN Pain (severe 7-10) Morphine Sulfate 1 - 5 mg 12/26/18 15:08 Morphine IVPUSH Q1H PRN Pain (severe 7-10) Naloxone HCl 0.1 mg 12/26/18 13:20 Narcan IVPUSH ONETIME PRN Respiratory Depression Non-Formulary Medication 300 mg 12/26/18 14:00 Clindamycin Hcl [Cleocin Hcl] PO TID HUAN Ondansetron HCl 8 mg 12/26/18 13:20 Zofran IVPUSH ONETIME PRN Nausea Promethazine HCl 12.5 mg 12/26/18 13:20 Phenergan IM ONETIME PRN Nausea Scopolamine 1.5 mg 12/26/18 13:20 Transderm-Scop TRDERM Q72H PRN Nausea Discontinued Medications Generic Name Dose Route Start Last Admin Trade Name Freq PRN Reason Stop Dose Admin Dextrose/Water 50 ml 12/26/18 15:23 Dextrose 50% In Water IVPUSH 12/26/18 15:24 ONETIME ONE Diphtheria/Tetanus/Acell Pertussis 0.5 ml 12/26/18 09:43 12/26/18 10:19 Adacel IM 12/26/18 09:44 0.5 ml .ONCE ONE Administration Ketorolac Tromethamine Confirm 12/26/18 15:45 Toradol Administered 12/26/18 15:46 Dose 30 mg .ROUTE .STK-MED ONE Lidocaine HCl 5 ml 12/26/18 09:42 12/26/18 13:14 Xylocaine-Mpf 1% INJECT 12/26/18 09:43 Not Given ONETIME ONE Propofol Confirm 12/26/18 13:28 Diprivan 20 Ml Administered 12/26/18 13:29 Dose 200 mg .ROUTE .STK-MED ONE Departure - Departure Time of Disposition: 16:54 Disposition: Still A Patient 30 Condition: Good Clinical Impression: Leg injury - Discharge Information - My Orders Last 24 Hours: My Active Orders 12/26/18 09:43 Vaccines to be Administered [RC] PER UNIT ROUTINE - Assessment/Plan Last 24 Hours: My Active Orders 12/26/18 09:43 Vaccines to be Administered [RC] PER UNIT ROUTINE
--- NOTE | 2018-12-26 10:59 | CR ---
INDICATION: Left leg injury/laceration. TECHNIQUE: AP and lateral views of the left leg, 3 images. COMPARISON: None. FINDINGS: Lateral laceration. No fracture or other acute bony abnormality. Left knee arthroplasty. IMPRESSION: Lateral leg laceration without acute bony abnormality. Dictated by Drew Wesley MD @ Dec 26 2018 10:56AM Signed by Dr. Drew Wesley @ Dec 26 2018 10:57AM
[2018-12-26] MEDS ORDERED: Lactated Ringers 1,000 ML IV SCH ×3 (12:00→15:15)
--- NOTE | 2018-12-26 12:08 | PCM.CONS ---
H&P History of Present Illness - General Date of Service: 12/26/18 Admit Problem/Dx: Admission Diagnosis/Problem Admission Diagnosis/Problem Laceration Source of Information: Patient, Family History Limitations: Reports: No Limitations - History of Present Illness Initial Comments - Free Text/Narative: 87 y/o male injured his left leg on the running board of his pickup trying to get into it today. Has a large flap laceration to the left lower extremity. Onset of Symptoms: Reports: Today Location: Reports: Lower Extremity, Left (large flap avulsion/laceration) Quality: Reports: Sharp, Stabbing Improves with: Reports: Rest Worsens with: Reports: Movement Associated Symptoms: Reports: No Other Symptoms Right Lower Leg Pain Score (Numeric/FACES): 2 - Related Data Allergies/Adverse Reactions: Allergies Allergy/AdvReac Type Severity Reaction Status Date / Time No Known Allergies Allergy Verified 03/13/17 18:54 Home Medications: Home Meds Bumetanide [Bumex] 1 mg PO DAILY 08/26/14 [History] Insulin Aspart [Novolog Flexpen] 10 units SUBCUT TIDAC 08/26/14 [History] Insulin Glarg,Human.Rec.Analog [Lantus] 40 unit SUBCUT DAILY 08/26/14 [History] Rosuvastatin [Crestor] 20 mg PO BEDTIME 08/26/14 [History] Aspirin [Halfprin] 81 mg PO BEDTIME 03/13/17 [History] Losartan [Cozaar] 25 mg PO DAILY 03/13/17 [History] Docusate Sodium 300 mg PO BID 03/16/17 [History] Acetaminophen/HYDROcodone [[place] 325-5 MG] 5 - 325 mg PO Q6H PRN 05/05/17 [ History] Albuterol [Ventolin HFA] 1 puff .XX QID 12/26/18 [History] Amoxicillin/Clavulanate K [Augmentin 875-125 MG] 500 mg PO DAILY 12/26/18 [ History] Aspirin 81 mg PO DAILY 12/26/18 [History] Carvedilol [Coreg] mg PO BID 12/26/18 [History] Clindamycin HCl [Cleocin HCl] 300 mg PO TID 12/26/18 [History] Donepezil HCl 10 mg PO DAILY 12/26/18 [History] Finasteride [Proscar] 1 tab PO DAILY 12/26/18 [History] Lidocaine 35.44 gm TP DAILY 12/26/18 [History] Lisinopril [Prinivil] 20 mg PO BID 12/26/18 [History] Metoprolol Tartrate [Lopressor] 100 mg PO BID 12/26/18 [History] Venlafaxine HCl [Venlafaxine HCl ER] 150 mg PO DAILY 12/26/18 [History] atorvaSTATin [Lipitor] 40 mg PO DAILY 12/26/18 [History] buPROPion HCl [Wellbutrin Xl] 150 mg PO DAILY 12/26/18 [History] metFORMIN [Glucophage] 500 mg PO DAILY 12/26/18 [History] Past Medical History HEENT History: Reports: Hard of Hearing Cardiovascular History: Reports: Automatic Implantable Cardioverter Defibrillators, High Cholesterol, Hypertension Respiratory History: Reports: None Gastrointestinal History: Reports: Other (See Below) Other Gastrointestinal History: "Water on the belly" Genitourinary History: Reports: None Musculoskeletal History: Reports: Arthritis Neurological History: Reports: None Psychiatric History: Reports: None Endocrine/Metabolic History: Reports: Diabetes, Type II Hematologic History: Reports: None Immunologic History: Reports: None Oncologic (Cancer) History: Reports: None Dermatologic History: Reports: None Other Dermatologic History: cellulitis of left leg with MRSA - Infectious Disease History Infectious Disease History: Reports: MRSA - Past Surgical History Cardiovascular Surgical History: Reports: Coronary Artery Bypass ( 5 vessel) Musculoskeletal Surgical History: Reports: Other (See Below) Social & Family History - Family History Family Medical History: Noncontributory - Caffeine Use Caffeine Use: Reports: Coffee H&P Review of Systems - Review of Systems: Review Of Systems: See Below General: Denies: Fever, Chills HEENT: Reports: No Symptoms Pulmonary: Denies: Shortness of Breath, Wheezing, Pleuritic Chest Pain Cardiovascular: Denies: Chest Pain, Palpitations, Dyspnea on Exertion Gastrointestinal: Denies: Abdominal Pain, Anorexia, Constipation, Diarrhea, Decreased Appetite Genitourinary: Denies: Dysuria, Frequency, Burning Musculoskeletal: Reports: Leg Pain (left leg pain at site of laceration) Skin: Denies: Cyanosis, Jaundice, Mottled Psychiatric: Reports: No Symptoms Neurological: Reports: No Symptoms Hematologic/Lymphatic: Reports: No Symptoms Immunologic: Reports: No Symptoms Exam - Exam Exam: See Below - Vital Signs Vital Signs: Last Vital Signs Temp 97.3 F 12/26/18 09:43 Pulse 62 12/26/18 09:43 Resp 20 12/26/18 09:43 BP 125/61 12/26/18 09:43 Pulse Ox 92 L 12/26/18 09:43 Weight: 302 lb 0.533 oz - Exam Quality Assessment: Supplemental Oxygen General: Alert, Oriented, Cooperative, Mild Distress HEENT: Conjunctiva Clear, EACs Clear, Nares Patent, Pupils Equal, Pupils Reactive. No: Scleral Icterus Neck: Supple, Trachea Midline Lungs: Clear to Auscultation, Normal Respiratory Effort. No: Crackles, Rales, Wheezing Cardiovascular: Regular Rate, Regular Rhythm. No: Bradycardia, Tachycardia GI/Abdominal Exam: Normal Bowel Sounds, Soft, Non-Tender (Male) Exam: Deferred Rectal (Males) Exam: Deferred Extremities: Other (marked swelling in both legs, 12" + flap avulsion/ laceration left pre-tibial area) Skin: Warm, Dry, Intact Neurological: Cranial Nerves Intact Neuro Extensive - Mental Status: Alert, Oriented x3 Consult PN Assessment/Plan Procedures: Procedures ABSCESS DRAINAGE UNDER X-RAY (03/16/15) ASSAY OF AMYLASE (03/13/17) ASSAY OF CK (CPK) (08/25/14) ASSAY OF LACTIC ACID (05/04/17) ASSAY OF LIPASE (03/13/17) ASSAY OF MAGNESIUM (05/04/17) ASSAY OF NATRIURETIC PEPTIDE (05/04/17) ASSAY OF TROPONIN QUANT (05/04/17) BLOOD CULTURE FOR BACTERIA (05/04/17) BLOOD TRANSFUSION SERVICE (05/23/15) BLOOD TYPING SEROLOGIC ABO (05/23/15) BLOOD TYPING SEROLOGIC RH(D) (05/23/15) BODY FLUID CELL COUNT (03/16/15) C-REACTIVE PROTEIN (05/29/17) CHEST X-RAY 1 VIEW FRONTAL (05/04/17) COMPATIBILITY TEST ANTIGLOB (05/23/15) COMPATIBILITY TEST INCUBATE (05/23/15) COMPATIBILITY TEST SPIN (05/23/15) COMPLETE CBC W/AUTO DIFF WBC (05/29/17) COMPREHEN METABOLIC PANEL (05/29/17) CREATINE MB FRACTION (08/25/14) CT ABD & PELVIS W/O CONTRAST (03/13/17) CULTURE AEROBIC IDENTIFY (05/03/16) CULTURE OTHR SPECIMN AEROBIC (03/16/15) ELECTROCARDIOGRAM TRACING (05/04/17) EMERGENCY DEPT VISIT (05/04/17) EMERGENCY DEPT VISIT (09/29/16) EMERGENCY DEPT VISIT (05/03/16) EMERGENCY DEPT VISIT (05/22/15) EMERGENCY DEPT VISIT (04/27/15) EMERGENCY DEPT VISIT (08/25/14) EMERGENCY DEPT VISIT (08/25/14) EXTREMITY STUDY (06/09/16) FIBRIN DEGRADATION QUANT (06/09/16) GLUCOSE BLOOD TEST (05/04/17) HYDRATE IV INFUSION ADD-ON (03/13/17) HYDRATION IV INFUSION INIT (04/27/15) METABOLIC PANEL TOTAL CA (05/04/17) MICROBE SUSCEPTIBLE SAMSON (05/03/16) PROTHROMBIN TIME (05/04/17) PT EVAL LOW COMPLEX 20 MIN (05/04/17) RBC ANTIBODY SCREEN (05/23/15) RBC SED RATE AUTOMATED (05/29/17) ROUTINE VENIPUNCTURE (05/29/17) SMEAR GRAM STAIN (03/16/15) THER/PROPH/DIAG INJ IV PUSH (05/04/17) THER/PROPH/DIAG IV INF INIT (05/03/16) TX/PRO/DX INJ NEW DRUG ADDON (05/04/17) URINALYSIS AUTO W/SCOPE (05/04/17) URINE CULTURE/COLONY COUNT (05/04/17) X-RAY EXAM L-S SPINE 2/3 VWS (09/29/16) X-RAY EXAM OF KNEE 3 (05/04/17) X-RAY EXAM OF LOWER LEG (05/04/17) (1) Traumatic open wound of left lower leg SNOMED Code(s): 567817451 Code(s): S81.802A - UNSPECIFIED OPEN WOUND, LEFT LOWER LEG, INITIAL ENCOUNTER Priority: High Current Visit: Yes Qualifiers: Encounter type: initial encounter Qualified Code(s): S81.802A - Unspecified open wound, left lower leg, initial encounter (2) History of MRSA infection SNOMED Code(s): 373727835, 184884936 Code(s): Z86.14 - PERSONAL HISTORY OF METHICILLIN RESIS STAPH INFECTION Priority: Low Current Visit: Yes (3) CHF (congestive heart failure) SNOMED Code(s): 77168098 Code(s): I50.9 - HEART FAILURE, UNSPECIFIED Priority: Medium Current Visit: No (4) Cellulitis SNOMED Code(s): 926953246 Code(s): L03.90 - CELLULITIS, UNSPECIFIED Current Visit: No Qualifiers: Site of cellulitis: extremity Site of cellulitis of extremity: lower extremity Laterality: left Qualified Code(s): L03.116 - Cellulitis of left lower limb (5) Pneumonia SNOMED Code(s): 234058013 Code(s): J18.9 - PNEUMONIA, UNSPECIFIED ORGANISM Current Visit: No Qualifiers: Pneumonia type: due to unspecified organism Laterality: right Lung location: middle lobe of lung Qualified Code(s): J18.1 - Lobar pneumonia, unspecified organism Problem List Initiated/Reviewed/Updated: Yes My Orders Last 24 Hours: My Active Orders 12/26/18 11:57 Vital Signs [RC] PER UNIT ROUTINE Resuscitation Status Routine 12/26/18 11:58 Intake and Output [RC] QSHIFT Oxygen Therapy [RC] PRN Pulse Oximetry [RC] INTERMITTENT Sequential Compression Device [OM.PC] Routine 12/26/18 11:59 Antiembolic Devices [RC] PER UNIT ROUTINE Consult to Physician [CONS] Urgent 12/26/18 12:00 Lactated Ringers @ 125 MLS/HR(1000ml) Lactated Ringers [Ringers, Lactated] 1, 000 ml IV ASDIRECTED ceFAZolin [Ancef] 2 gm Premix Bag 1 bag IV ONETIME 12/26/18 12:01 Notify Provider Consults [RC] ASDIRECTED 12/26/18 Breakfast Nothing Per Oral Diet [DIET] Plan: Patient will need debridement, cleansing and closure of the large flap avulsion/ laceration of his left lower extremity. The operative procedure, along with the risks, including but not limited to bleeding, infection, development of MRSA, possible skin grafting, poor wound healing, reaction to anesthesia have been reviewed with the patient and his family. They state they understand. Questions have been answered and they agree to proceed.
[2018-12-26] MEDS ORDERED: ceFAZolin 2 GM in Premix Bag 1 BAG IV SCH (12:15)
--- NOTE | 2018-12-26 12:32 | CR ---
INDICATION: TECHNIQUE: Chest 1 view. COMPARISON: None FINDINGS: The heart size is enlarged. Central vascular markings are increased with cephalization of blood flow identified in the both lung apices. Bibasilar alveolar consolidation/atelectasis is present with limited assessment of the left lung base. The upper lungs are clear of focal infiltrates. Changes of previous midline sternotomy and suspected coronary artery bypass grafting are present. A dual chamber right subclavian AICD appears appropriately positioned. IMPRESSION: 1. Cardiomegaly with central vascular congestion and suspected mild chronic interstitial pulmonary edema. A lateral view would be helpful to assess the lower lungs and to assess for pleural effusions. 2. Other findings are as noted above. Dictated by Laz Olivas MD @ Dec 26 2018 12:26PM Signed by Dr. Laz Olivas @ Dec 26 2018 12:30PM
--- NOTE | 2018-12-26 12:34 | PCM.CONS ---
H&P History of Present Illness - General Date of Service: 12/26/18 Admit Problem/Dx: Admission Diagnosis/Problem Admission Diagnosis/Problem Laceration - History of Present Illness Initial Comments - Free Text/Narative: 87 yo male with pmh of DM, HTN, CAD, CHF, AICD, ADAIR, and CKD who presents to the ED with laceration of left leg. He cut his leg on a running board of a truck. He denies any bleeding problems in the past. He denies any fevers, chills, cough, shortness of breath or chest pain. He denies any weight change, or swelling of the legs. On Thursday he was started on clindamycin by Dr. Echevarria for treatment of a pneumonia. Right Lower Leg Pain Score (Numeric/FACES): 2 - Related Data Allergies/Adverse Reactions: Allergies Allergy/AdvReac Type Severity Reaction Status Date / Time No Known Allergies Allergy Verified 03/13/17 18:54 Home Medications: Home Meds Bumetanide [Bumex] 1 mg PO DAILY 08/26/14 [History] Insulin Aspart [Novolog Flexpen] 10 units SUBCUT TIDAC 08/26/14 [History] Insulin Glarg,Human.Rec.Analog [Lantus] 40 unit SUBCUT DAILY 08/26/14 [History] Rosuvastatin [Crestor] 20 mg PO BEDTIME 08/26/14 [History] Aspirin [Halfprin] 81 mg PO BEDTIME 03/13/17 [History] Losartan [Cozaar] 25 mg PO DAILY 03/13/17 [History] Acetaminophen/HYDROcodone [[place] 325-5 MG] 5 - 325 mg PO Q6H PRN 05/05/17 [ History] Amoxicillin/Clavulanate K [Augmentin 875-125 MG] 500 mg PO DAILY 12/26/18 [ History] Carvedilol [Coreg] mg PO BID 12/26/18 [History] Clindamycin HCl [Cleocin HCl] 300 mg PO TID 12/26/18 [History] Docusate Calcium 240 mg PO TID 12/26/18 [History] Finasteride [Proscar] 1 tab PO DAILY 12/26/18 [History] Lidocaine 35.44 gm TP DAILY 12/26/18 [History] Tamsulosin HCl 1 tab PO DAILY 12/26/18 [History] Past Medical History HEENT History: Reports: Hard of Hearing Cardiovascular History: Reports: Automatic Implantable Cardioverter Defibrillators, High Cholesterol, Hypertension Respiratory History: Reports: None Gastrointestinal History: Reports: Other (See Below) Other Gastrointestinal History: "Water on the belly" Genitourinary History: Reports: None Musculoskeletal History: Reports: Arthritis Neurological History: Reports: None Psychiatric History: Reports: None Endocrine/Metabolic History: Reports: Diabetes, Type II Hematologic History: Reports: None Immunologic History: Reports: None Oncologic (Cancer) History: Reports: None Dermatologic History: Reports: None Other Dermatologic History: cellulitis of left leg with MRSA - Infectious Disease History Infectious Disease History: Reports: MRSA - Past Surgical History Cardiovascular Surgical History: Reports: Coronary Artery Bypass ( 5 vessel) Musculoskeletal Surgical History: Reports: Other (See Below) Social & Family History - Family History Family Medical History: Noncontributory - Caffeine Use Caffeine Use: Reports: Coffee H&P Review of Systems - Review of Systems: Review Of Systems: ROS reveals no pertinent complaints other than HPI. Exam - Exam Exam: See Below - Vital Signs Vital Signs: Last Vital Signs Temp 36.3 C 12/26/18 09:43 Pulse 62 12/26/18 09:43 Resp 20 12/26/18 09:43 BP 125/61 12/26/18 09:43 Pulse Ox 92 L 12/26/18 09:43 Weight: 137 kg - Exam General: Alert, Oriented HEENT: Mucosa Moist & [place], Other Lungs: Clear to Auscultation Cardiovascular: Regular Rate, Regular Rhythm GI/Abdominal Exam: Soft, Non-Tender Extremities: Other (+2 edema with venous stasus changes. Large laceration of lower left leg) - Patient Data Result Diagrams: 12/26/18 11:55 12/26/18 11:55 Consult PN Assessment/Plan Procedures: Procedures ABSCESS DRAINAGE UNDER X-RAY (03/16/15) ASSAY OF AMYLASE (03/13/17) ASSAY OF CK (CPK) (08/25/14) ASSAY OF LACTIC ACID (05/04/17) ASSAY OF LIPASE (03/13/17) ASSAY OF MAGNESIUM (05/04/17) ASSAY OF NATRIURETIC PEPTIDE (05/04/17) ASSAY OF TROPONIN QUANT (05/04/17) BLOOD CULTURE FOR BACTERIA (05/04/17) BLOOD TRANSFUSION SERVICE (05/23/15) BLOOD TYPING SEROLOGIC ABO (05/23/15) BLOOD TYPING SEROLOGIC RH(D) (05/23/15) BODY FLUID CELL COUNT (03/16/15) C-REACTIVE PROTEIN (05/29/17) CHEST X-RAY 1 VIEW FRONTAL (05/04/17) COMPATIBILITY TEST ANTIGLOB (05/23/15) COMPATIBILITY TEST INCUBATE (05/23/15) COMPATIBILITY TEST SPIN (05/23/15) COMPLETE CBC W/AUTO DIFF WBC (05/29/17) COMPREHEN METABOLIC PANEL (05/29/17) CREATINE MB FRACTION (08/25/14) CT ABD & PELVIS W/O CONTRAST (03/13/17) CULTURE AEROBIC IDENTIFY (05/03/16) CULTURE OTHR SPECIMN AEROBIC (03/16/15) ELECTROCARDIOGRAM TRACING (05/04/17) EMERGENCY DEPT VISIT (05/04/17) EMERGENCY DEPT VISIT (09/29/16) EMERGENCY DEPT VISIT (05/03/16) EMERGENCY DEPT VISIT (05/22/15) EMERGENCY DEPT VISIT (04/27/15) EMERGENCY DEPT VISIT (08/25/14) EMERGENCY DEPT VISIT (08/25/14) EXTREMITY STUDY (06/09/16) FIBRIN DEGRADATION QUANT (06/09/16) GLUCOSE BLOOD TEST (05/04/17) HYDRATE IV INFUSION ADD-ON (03/13/17) HYDRATION IV INFUSION INIT (04/27/15) METABOLIC PANEL TOTAL CA (05/04/17) MICROBE SUSCEPTIBLE SAMSON (05/03/16) PROTHROMBIN TIME (05/04/17) PT EVAL LOW COMPLEX 20 MIN (05/04/17) RBC ANTIBODY SCREEN (05/23/15) RBC SED RATE AUTOMATED (05/29/17) ROUTINE VENIPUNCTURE (05/29/17) SMEAR GRAM STAIN (03/16/15) THER/PROPH/DIAG INJ IV PUSH (05/04/17) THER/PROPH/DIAG IV INF INIT (05/03/16) TX/PRO/DX INJ NEW DRUG ADDON (05/04/17) URINALYSIS AUTO W/SCOPE (05/04/17) URINE CULTURE/COLONY COUNT (05/04/17) X-RAY EXAM L-S SPINE 2/3 VWS (09/29/16) X-RAY EXAM OF KNEE 3 (05/04/17) X-RAY EXAM OF LOWER LEG (05/04/17) Problem List Initiated/Reviewed/Updated: Yes My Orders Last 24 Hours: My Active Orders 12/26/18 12:27 Accu Check [Blood Glucose Check, Bedside] [RC] TIDMEALS 12/26/18 14:00 Clindamycin HCl [Cleocin HCl] 300 mg PO TID Plan: 87 yo male who presents with lower leg laceration. Dr. Maldonado plans on taking to OR for repair. He has a past medical history of DM, HTN, CAD, CHF, AICD, ADAIR, and CKD. DM: would resume lantus and ssi HTN/CAD/CHF: would resume cardioprotective medications when possible ADAIR: closely monitor, he does not use cpap at home would start dvt prophylaxis as soon as deem safe by surgery.
--- NOTE | 2018-12-26 13:18 | PCM.PREANE ---
Preanesthetic Assessment - Anesthesia/Transfusion/Family Hx Anesthesia History: Prior Anesthesia Without Reaction Transfusion History: Prior Transfusion Without Reaction - Review of Systems General: Weakness Cardiovascular: Edema Gastrointestinal: No Symptoms Neurological: No Symptoms Other: Reports: Diabetes - Physical Assessment O2 Sat by Pulse Oximetry: 92 Respiratory Rate: 20 Vital Signs: Last Vital Signs Temp 36.3 C 12/26/18 09:43 Pulse 62 12/26/18 09:43 Resp 20 12/26/18 09:43 BP 125/61 12/26/18 09:43 Pulse Ox 92 L 12/26/18 09:43 Height: 1.75 m Weight: 137 kg ASA Class: 3E Mental Status: Alert & Oriented x3 Dentition: Reports: Dentures Thyro-Mental Finger Breadths: 2 Mouth Opening Finger Breadths: 3 Lungs: Clear to Auscultation, Normal Respiratory Effort Cardiovascular: Regular Rate, Regular Rhythm - Lab Values: Laboratory Last Values WBC 6.80 K/uL (4.0-11.0) 12/26/18 11:55 RBC 3.42 M/uL (4.50-5.90) L 12/26/18 11:55 Hgb 10.8 g/dL (13.0-17.0) L 12/26/18 11:55 Hct 34.1 % (38.0-50.0) L 12/26/18 11:55 MCV 99.7 fL (80.0-98.0) H 12/26/18 11:55 MCH 31.6 pg (27.0-32.0) 12/26/18 11:55 MCHC 31.7 g/dL (31.0-37.0) 12/26/18 11:55 RDW Std Deviation 55.3 fl (28.0-62.0) 12/26/18 11:55 RDW Coeff of [place]jana 15 % (11.0-15.0) 12/26/18 11:55 Plt Count 176 K/uL (150-400) 12/26/18 11:55 MPV 10.10 fL (7.40-12.00) 12/26/18 11:55 Neut % (Auto) 66.2 % (48.0-80.0) 12/26/18 11:55 Lymph % (Auto) 16.3 % (16.0-40.0) 12/26/18 11:55 [place] % (Auto) 13.5 % (0.0-15.0) 12/26/18 11:55 Eos % (Auto) 3.7 % (0.0-7.0) 12/26/18 11:55 Baso % (Auto) 0.3 % (0.0-1.5) 12/26/18 11:55 Neut # (Auto) 4.5 K/uL (1.4-5.7) 12/26/18 11:55 Lymph # (Auto) 1.1 K/uL (0.6-2.4) 12/26/18 11:55 [place] # (Auto) 0.9 K/uL (0.0-0.8) H 12/26/18 11:55 Eos # (Auto) 0.3 K/uL (0.0-0.7) 12/26/18 11:55 Baso # (Auto) 0.0 K/uL (0.0-0.1) 12/26/18 11:55 Nucleated RBC % 0.0 /100WBC 12/26/18 11:55 Nucleated RBCs # 0 K/uL 12/26/18 11:55 Sodium 140 mmol/L (136-148) 12/26/18 11:55 Potassium 4.0 mmol/L (3.5-5.1) 12/26/18 11:55 Chloride 106 mmol/L (98-107) 12/26/18 11:55 Carbon Dioxide 23.6 mmol/L (21.0-32.0) 12/26/18 11:55 BUN 28 mg/dL (7.0-18.0) H 12/26/18 11:55 Creatinine 1.7 mg/dL (0.8-1.3) H 12/26/18 11:55 Est Cr Clr Drug Dosing 30.61 mL/min 12/26/18 11:55 Estimated GFR (MDRD) 38.3 ml/min 12/26/18 11:55 Glucose 72 mg/dL (74-106) L 12/26/18 11:55 Calcium 8.6 mg/dL (8.5-10.1) 12/26/18 11:55 Total Bilirubin 0.7 mg/dL (0.2-1.0) 12/26/18 11:55 AST 16 IU/L (15-37) 12/26/18 11:55 ALT 9 IU/L (14-63) L 12/26/18 11:55 Alkaline Phosphatase 100 U/L (46-116) 12/26/18 11:55 Total Protein 6.9 g/dL (6.4-8.2) 12/26/18 11:55 Albumin 3.2 g/dL (3.4-5.0) L 12/26/18 11:55 Globulin 3.7 g/dL (2.6-4.0) 12/26/18 11:55 Albumin/Globulin Ratio 0.9 (0.9-1.6) 12/26/18 11:55 - Allergies Allergies/Adverse Reactions: Allergies Allergy/AdvReac Type Severity Reaction Status Date / Time No Known Allergies Allergy Verified 03/13/17 18:54 - Acknowledgements Anesthesia Type Planned: General Anesthesia Pt an Appropriate Candidate for the Planned Anesthesia: Yes Alternatives and Risks of Anesthesia Discussed w Pt/Guardian: Yes Pt/Guardian Understands and Agrees with Anesthesia Plan: Yes PreAnesthesia Questionnaire HEENT History: Reports: Hard of Hearing Cardiovascular History: Reports: Automatic Implantable Cardioverter Defibrillators, High Cholesterol, Hypertension Respiratory History: Reports: None Gastrointestinal History: Reports: Other (See Below) Other Gastrointestinal History: "Water on the belly" Genitourinary History: Reports: None Musculoskeletal History: Reports: Arthritis Neurological History: Reports: None Psychiatric History: Reports: None Endocrine/Metabolic History: Reports: Diabetes, Type II Hematologic History: Reports: None Immunologic History: Reports: None Oncologic (Cancer) History: Reports: None Dermatologic History: Reports: None Other Dermatologic History: cellulitis of left leg with MRSA - Infectious Disease History Infectious Disease History: Reports: MRSA - Past Surgical History Cardiovascular Surgical History: Reports: Coronary Artery Bypass ( 5 vessel) Musculoskeletal Surgical History: Reports: Other (See Below) - HOME MEDS Home Medications: Home Meds Bumetanide [Bumex] 1 mg PO DAILY 08/26/14 [History] Insulin Aspart [Novolog Flexpen] 10 units SUBCUT TIDAC 08/26/14 [History] Insulin Glarg,Human.Rec.Analog [Lantus] 40 unit SUBCUT DAILY 08/26/14 [History] Rosuvastatin [Crestor] 20 mg PO BEDTIME 08/26/14 [History] Aspirin [Halfprin] 81 mg PO BEDTIME 03/13/17 [History] Losartan [Cozaar] 25 mg PO DAILY 03/13/17 [History] Acetaminophen/HYDROcodone [[place] 325-5 MG] 5 - 325 mg PO Q6H PRN 05/05/17 [ History] Amoxicillin/Clavulanate K [Augmentin 875-125 MG] 500 mg PO DAILY 12/26/18 [ History] Carvedilol [Coreg] mg PO BID 12/26/18 [History] Clindamycin HCl [Cleocin HCl] 300 mg PO TID 12/26/18 [History] Docusate Calcium 240 mg PO TID 12/26/18 [History] Finasteride [Proscar] 1 tab PO DAILY 12/26/18 [History] Lidocaine 35.44 gm TP DAILY 12/26/18 [History] Tamsulosin HCl 1 tab PO DAILY 12/26/18 [History] - CURRENT (IN HOUSE) MEDS Current Meds: Current Medications Cefazolin Sodium/Dextrose 2 gm (/ Premix) 50 mls @ 100 mls/hr IV ONETIME HUAN Last Admin: 12/26/18 12:29 Dose: 100 mls/hr Lactated Ringer's (Ringers, Lactated) 1,000 mls @ 125 mls/hr IV ASDIRECTED [facility] Last Admin: 12/26/18 12:31 Dose: 125 mls/hr Lactated Ringer's (Ringers, Lactated) 1,000 mls @ 125 mls/hr IV ASDIRECTED [facility] Non-Formulary Medication (Clindamycin Hcl [Cleocin Hcl]) 300 mg PO TID HUAN Discontinued Medications Diphtheria/Tetanus/Acell Pertussis (Adacel) 0.5 ml IM .ONCE ONE Stop: 12/26/18 09:44 Last Admin: 12/26/18 10:19 Dose: 0.5 ml Lidocaine HCl (Xylocaine-Mpf 1%) 5 ml INJECT ONETIME ONE Stop: 12/26/18 09:43 Last Admin: 12/26/18 13:14 Dose: Not Given
[2018-12-26] MEDS ORDERED: Scopolamine 1.5 MG Transdermal Patch TRDERM PRN (13:20)
[2018-12-26] MEDS ORDERED: Meperidine PF 25 MG/ML Syringe IV PRN (13:20)
[2018-12-26] MEDS ORDERED: Naloxone 0.4 MG/ML Syringe IVPUSH PRN (13:20)
[2018-12-26] MEDS ORDERED: Labetalol 100 MG/20 ML MDV IVPUSH PRN (13:20)
[2018-12-26] MEDS ORDERED: Atropine 1 MG/ML SDV IVPUSH PRN (13:20)
[2018-12-26] MEDS ORDERED: Promethazine 25 MG/ML SDV IM PRN (13:20)
[2018-12-26] MEDS ORDERED: Meperidine PF 25 MG/ML Syringe IVPUSH PRN (13:20)
[2018-12-26] MEDS ORDERED: Morphine 4 MG/ML Syringe IVPUSH PRN (13:20)
[2018-12-26] MEDS ORDERED: Ondansetron 4 MG/2 ML SDV IVPUSH PRN (13:20)
[2018-12-26] MEDS ORDERED: Acetaminophen/HYDROcodone 325-5 MG Tab PO PRN (13:20)
[2018-12-26] MEDS ORDERED: hydrALAZINE 20 MG/ML SDV IVPUSH PRN ×2 (13:20)
[2018-12-26] MEDS ORDERED: fentaNYL 100 MCG/2 ML SDV IVPUSH PRN (13:20)
[2018-12-26] MEDS ORDERED: Albuterol 0.083% 2.5 MG/3 ML Neb Soln NEB PRN (13:20)
[2018-12-26] MEDS ORDERED: Metoclopramide 10 MG/2 ML SDV IVPUSH PRN (13:20)
[2018-12-26] MEDS ORDERED: HYDROmorphone 2 MG/ML Syringe IVPUSH PRN (13:20)
[2018-12-26] MEDS ORDERED: Propofol 200 MG/20 ML SDV ONE (13:28)
[2018-12-26] MEDS ORDERED: Morphine 10 MG/ML Syringe IVPUSH PRN (15:08)
[2018-12-26] MEDS ORDERED: Acetaminophen 325 MG Tab PO PRN (15:08)
[2018-12-26] MEDS ORDERED: ceFAZolin 1 GM in Premix Bag 1 BAG IV SCH (15:15)
[2018-12-26] MEDS ORDERED: 50% Dextrose in Water 50 ML Syringe IVPUSH ONE (15:23)
--- NOTE | 2018-12-26 15:34 | PCM.OPNOTE ---
- General Post-Op/Procedure Note Date of Surgery/Procedure: 12/26/18 Operative Procedure(s): Repair 29 cm avulsion laceration, left lower extremity Pre Op Diagnosis: Traumatic avulsion laceration left lower extremity Post-Op Diagnosis: Same Anesthesia Technique: General LMA (ASA IIIE) Primary Surgeon: Vladimir Maldonado Cloth Folder Hand: Elinor Minor Fluid Replacement, Intraop: 300 EBL in mLs: 10 Condition: Stable Free Text/Narrative:: DICTATION [id number] CPT CODE 21356
[2018-12-26] MEDS ORDERED: Ketorolac 30 MG/ML SDV ONE (15:45)
--- NOTE | 2018-12-26 16:53 | PCM.POSTAN ---
POST ANESTHESIA ASSESSMENT - MENTAL STATUS Mental Status: Alert - RESPIRATORY Respiratory Status: Respiratory Rate WNL, Airway Patent, O2 Saturation Stable - CARDIOVASCULAR CV Status: Pulse Rate WNL, Blood Pressure Stable - GASTROINTESTINAL GI Status: No Symptoms - POST OP HYDRATION Hydration Status: Adequate & Stable
[2018-12-26] MEDS: Acetaminophen/HYDROcodone 325-5 MG Tab PO PRN ×2 (18:11→21:45)
[2018-12-26] MEDS: CLINDAMYCIN HCL 300 MG PO SCH ×2 (18:15→21:49)
[2018-12-26] MEDS ORDERED: Rosuvastatin 10 MG Tab PO SCH (21:00)
[2018-12-26] MEDS: Clindamycin HCl 150 MG Cap ONE ×2 (21:46→22:12)
[2018-12-26] MEDS: ceFAZolin 1 GM in Premix Bag 1 BAG IV SCH (22:27)
--- NOTE | 2018-12-27 01:08 | OR ---
SURGEON: Vladimir Maldonado M.D. DATE OF PROCEDURE: 12/26/2018 OPERATION PERFORMED: Repair of severe avulsion laceration left lower extremity, 29 cm in length. FREIGHT DISPATCHER: Computer Repair Engineer: Shiloh Minor, dilcia OR mukesh, workers compensation claims assistant student. PREOPERATIVE DIAGNOSIS: Avulsion laceration of left lower extremity. POSTOPERATIVE DIAGNOSIS: Avulsion laceration of left lower extremity. ESTIMATED BLOOD LOSS: 10 mL. INTRAOPERATIVE FLUID REPLACEMENT: 300 mL of crystalloid. ASA CLASSIFICATION: 3E. ANESTHESIA: General LMA. DESCRIPTION OF PROCEDURE: The patient was taken to the operating room and placed on the operating table in the supine position. Time-out was called for appropriate identification of the patient and procedure. Following satisfactory attainment of general anesthesia with placement of an LMA, the left lower extremity was prepped with Betadine solution. Sterile drapes were applied. The large flap was lifted up, and the area underlying this was cleansed and irrigated with sterile saline solution. Small bleeding sites were electrocoagulated. Suture ligation of bleeding vessels was carried out using 3-0 Vicryl. The flap was then replaced down, and there did not appear to be any loss of tissue. The flap was then repaired and the laceration closed with interrupted 3-0 nylon and 3-0 Vicryl sutures. Steri- Strips were also used in some of the areas where the flap was small. The wound was then examined and dressed with Xeroform gauze, fluffs, ABDs, 4-inch Kerlix, and 6-inch Jass wrap. Sponge, needle, and instrument counts were all correct. Following emergence from anesthesia and extubation, the patient was taken to recovery room in satisfactory condition. JANICE / CAROLINE /[id number]
[2018-12-27] MEDS ORDERED: Clindamycin HCl 150 MG Cap PO SCH (06:00)
[2018-12-27] MEDS: ceFAZolin 1 GM in Premix Bag 1 BAG IV SCH (06:34)
[2018-12-27] MEDS ORDERED: Insulin Aspart 100 Units/ML 3 ML Pen SUBCUT SCH (07:30)
[2018-12-27] MEDS ORDERED: Tamsulosin 0.4 MG Cap.ER PO SCH (09:00)
[2018-12-27] MEDS ORDERED: Finasteride 5 MG Tab PO SCH (09:00)
[2018-12-27] MEDS ORDERED: Insulin Glargine,Human Rec. Analog 100 Units/ML 3 ML Pen SUBCUT SCH (09:00)
[2018-12-27] MEDS ORDERED: Bumetanide 1 MG Tab PO SCH (09:00)
[2018-12-27 13:59] VITALS: BP 155/68
== END 2018-12-27 13:30 | disposition home or self-care (01) ==
LOC: MW.ED 09:30 → MW.SDS 11:40 → MW.ICU 13:46
PROVIDERS: ADMIT Surgery; ATTEND Surgery
DX: S81.812A Laceration without foreign body, left lower leg, initial encounter (principal); J18.1 Lobar pneumonia, unspecified organism; L03.116 Cellulitis of left lower limb; I25.10 Atherosclerotic heart disease of native coronary artery without angina pectoris; I13.0 Hypertensive heart and chronic kidney disease with heart failure and stage 1 through stage 4 chronic kidney disease, or unspecified chronic kidney disease; E11.22 Type 2 diabetes mellitus with diabetic chronic kidney disease; I50.9 Heart failure, unspecified; N18.9 Chronic kidney disease, unspecified; M19.90 Unspecified osteoarthritis, unspecified site; G47.33 Obstructive sleep apnea (adult) (pediatric); W45.8XXA Other foreign body or object entering through skin, initial encounter; Z95.810 Presence of automatic (implantable) cardiac defibrillator; Z86.14 Personal history of Methicillin resistant Staphylococcus aureus infection; Z79.4 Long term (current) use of insulin; Z79.82 Long term (current) use of aspirin; Z79.899 Other long term (current) drug therapy
CPT/HCPCS: 13121; 13122; 36415; 71045; 73590; 80053; 82962; 85025; 90471; 90715; 93005; 96361; 96365; 99284; A9270; G0378; J0690; J1815; J2704; J7060; J7120; 99283

== ENCOUNTER 2019-03-17 15:12 | Emergency (ER) | payer MEDICARE, BC ==
--- NOTE | 2019-03-17 15:47 | EDM.PDOC ---
ED HPI GENERAL MEDICAL PROBLEM - General Chief Complaint: Lower Extremity Injury/Pain Stated Complaint: LEG Time Seen by Provider: 03/17/19 15:44 Source of Information: Reports: Patient - History of Present Illness INITIAL COMMENTS - FREE TEXT/NARRATIVE: HISTORY AND PHYSICAL: History of present illness: []Patient with chronic left lower extremity pain, presents with left knee and hip pain, has a chronic infectious process it seems to be under control at current, concerning the lower leg, this began in December after getting into a pickup he tore his skin being bored of the pickup, Dr. Maldonado has been caring for that. He has history of bilateral knee replacement, the left knee has been replaced 3 times per patient, he is able to ambulate with use of a walker, pt is on hydrocodone for chronic leg pain No fever nausea vomiting chills sweats Review of systems: As per history of present illness and below otherwise all systems reviewed and negative. Past medical history: As per history of present illness and as reviewed below otherwise noncontributory. Surgical history: As per history of present illness and as reviewed below otherwise noncontributory. Social history: No reported history of drug or alcohol abuse. Family history: As per history of present illness and as reviewed below otherwise noncontributory. Physical exam: HEENT: Atraumatic, normocephalic, pupils reactive, negative for conjunctival pallor or scleral icterus, mucous membranes moist, throat clear, neck supple, nontender, trachea midline. Lungs: Clear to auscultation, breath sounds equal bilaterally, chest nontender. Heart: S1S2, regular, negative for clicks, rubs, or JVD. Abdomen: Soft, nondistended, nontender. Negative for masses or hepatosplenomegaly. Negative for costovertebral tenderness. Pelvis: Stable nontender. Genitourinary: Deferred. Rectal: Deferred. Extremities: Atraumatic, negative for cords or calf pain. Neurovascular unremarkable. Neuro: Awake, alert, oriented. Cranial nerves II through XII unremarkable. Cerebellum unremarkable. Motor and sensory unremarkable throughout. Exam nonfocal. Diagnostics: [Left knee Left hip] Ultrasound rule out DVT CBC INR Therapeutics: []Until you current medication Impression: left lower extremity pain ] Chronic history of baseline Definitive disposition and diagnosis as appropriate pending reevaluation and review of above. Left Leg Pain Score (Numeric/FACES): 4 - Related Data Allergies Allergy/AdvReac Type Severity Reaction Status Date / Time No Known Allergies Allergy Verified 03/17/19 15:31 Home Meds: Home Meds Bumetanide [Bumex] 1 mg PO DAILY 08/26/14 [History] Insulin Aspart [Novolog Flexpen] 10 units SUBCUT TIDAC 08/26/14 [History] Insulin Glarg,Human.Rec.Analog [Lantus] 40 unit SUBCUT DAILY 08/26/14 [History] Rosuvastatin [Crestor] 20 mg PO BEDTIME 08/26/14 [History] Aspirin [Halfprin] 81 mg PO BEDTIME 03/13/17 [History] Losartan [Cozaar] 25 mg PO DAILY 03/13/17 [History] Acetaminophen/HYDROcodone [[place] 325-5 MG] 5 - 325 mg PO Q6H PRN 05/05/17 [ History] Amoxicillin/Clavulanate K [Augmentin 875-125 MG] 500 mg PO DAILY 12/26/18 [ History] Carvedilol [Coreg] mg PO BID 12/26/18 [History] Clindamycin HCl [Cleocin HCl] 300 mg PO TID 12/26/18 [History] Docusate Calcium 240 mg PO TID 12/26/18 [History] Finasteride [Proscar] 1 tab PO DAILY 12/26/18 [History] Lidocaine 35.44 gm TP DAILY 12/26/18 [History] Tamsulosin HCl 1 tab PO DAILY 12/26/18 [History] Past Medical History HEENT History: Reports: Hard of Hearing, Impaired Vision Cardiovascular History: Reports: Automatic Implantable Cardioverter Defibrillators, High Cholesterol, Hypertension Respiratory History: Reports: Croup Gastrointestinal History: Reports: Other (See Below) Other Gastrointestinal History: "Water on the belly" Genitourinary History: Reports: None Musculoskeletal History: Reports: Arthritis, Fracture Other Musculoskeletal History: left hand fracture Neurological History: Reports: None Psychiatric History: Reports: None Endocrine/Metabolic History: Reports: Diabetes, Type II Hematologic History: Reports: None Immunologic History: Reports: None Oncologic (Cancer) History: Reports: None Dermatologic History: Reports: None Other Dermatologic History: cellulitis of left leg with MRSA - Infectious Disease History Infectious Disease History: Reports: Chicken Pox, Measles, MRSA, Shingles - Past Surgical History HEENT Surgical History: Reports: Adenoidectomy, Tonsillectomy Cardiovascular Surgical History: Reports: Coronary Artery Bypass Musculoskeletal Surgical History: Reports: Other (See Below) Social & Family History - Family History Family Medical History: Noncontributory - Tobacco Use Smoking Status *Q: Never Smoker Second Hand Smoke Exposure: No - Caffeine Use Caffeine Use: Reports: Coffee - Recreational Drug Use Recreational Drug Use: No Review of Systems - Review of Systems Review Of Systems: See Below ED EXAM, GENERAL - Physical Exam Exam: See Below Course - Vital Signs Last Recorded V/S: Last Vital Signs Temp 97.4 F 03/17/19 17:54 Pulse 60 03/17/19 17:54 Resp 18 03/17/19 15:27 BP 122/62 03/17/19 17:54 Pulse Ox 60 L 03/17/19 17:54 - Orders/Labs/Meds Labs: Laboratory Tests 03/17/19 03/17/19 Range/Units 15:51 15:51 WBC 5.56 (4.0-11.0) K/uL RBC 3.44 L (4.50-5.90) M/uL Hgb 10.9 L (13.0-17.0) g/dL Hct 34.7 L (38.0-50.0) % MCV 100.9 H (80.0-98.0) fL MCH 31.7 (27.0-32.0) pg MCHC 31.4 (31.0-37.0) g/dL RDW Std Deviation 54.6 (28.0-62.0) fl RDW Coeff of Anjana 15 (11.0-15.0) % Plt Count 163 (150-400) K/uL MPV 10.10 (7.40-12.00) fL Neut % (Auto) 61.9 (48.0-80.0) % Lymph % (Auto) 17.8 (16.0-40.0) % [place] % (Auto) 14.7 (0.0-15.0) % Eos % (Auto) 5.4 (0.0-7.0) % Baso % (Auto) 0.2 (0.0-1.5) % Neut # (Auto) 3.4 (1.4-5.7) K/uL Lymph # (Auto) 1.0 (0.6-2.4) K/uL [place] # (Auto) 0.8 (0.0-0.8) K/uL Eos # (Auto) 0.3 (0.0-0.7) K/uL Baso # (Auto) 0.0 (0.0-0.1) K/uL Nucleated RBC % 0.0 /100WBC Nucleated RBCs # 0 K/uL INR 1.23 Departure - Departure Time of Disposition: 18:44 Disposition: Home, Self-Care 01 Condition: Good Clinical Impression: Lower extremity pain - Discharge Information Referrals: PCP,None [Primary Care Provider] - Forms: ED Department Discharge Additional Instructions: The following information is given to patients seen in the emergency department who are being discharged to home. This information is to outline your options for follow-up care. We provide all patients seen in our emergency department with a follow-up referral. The need for follow-up, as well as the timing and circumstances, are variable depending upon the specifics of your emergency department visit. If you don't have a primary care physician on staff, we will provide you with a referral. We always advise you to contact your personal physician following an emergency department visit to inform them of the circumstance of the visit and for follow-up with them and/or the need for any referrals to a consulting specialist. The emergency department will also refer you to a specialist when appropriate. This referral assures that you have the opportunity for follow-up care with a specialist. All of these measure are taken in an effort to provide you with optimal care, which includes your follow-up. Under all circumstances we always encourage you to contact your private physician who remains a resource for coordinating your care. When calling for follow-up care, please make the office aware that this follow-up is from your recent emergency room visit. If for any reason you are refused follow-up, please contact the [facility] emergency department at and asked to speak to the emergency department charge nurse.
--- NOTE | 2019-03-17 17:17 | CR ---
INDICATION: Hip pain TECHNIQUE: Hip radiograph 3 views left COMPARISON: None FINDINGS: Severe degradation of image quality noted due to body habitus. Bone: No acute fractures or aggressive bone lesions are identified. The femoral stem from the patient`s knee arthroplasty is partially visualized. Joint: The hip joint is unremarkable. The visualized sacroiliac joints are unremarkable in appearance. The pubic symphysis is normal in appearance. Soft tissue: Unremarkable. No radiopaque foreign bodies are seen. Mild vascular calcifications are noted. IMPRESSION: 1. No acute osseous injuries or abnormalities are noted. Dictated by Patricio Nielsen MD @ 03/17/2019 5:16:49 PM Dictated by: Patricio Nielsen MD @ 03/17/2019 17:16:52 (Electronically Signed)
--- NOTE | 2019-03-17 17:19 | CR ---
INDICATION: Knee pain TECHNIQUE: Knee radiograph 3 views left COMPARISON: None FINDINGS: Bone: No acute fractures or aggressive bone lesions are identified. Abundant periosteal bone formation is seen surrounding the proximal tibia and distal femur without interval change. Joint: Total knee arthroplasty present and similar in appearance to prior examination. No significant knee effusion is seen. Soft tissue: Subcutaneous edema seen in the anterior soft tissues. No radiopaque foreign bodies are seen. Moderate vascular calcification is noted. IMPRESSION: 1. No acute osseous injuries or abnormalities are noted. Dictated by Patricio Nielsen MD @ 03/17/2019 5:18:30 PM Dictated by: Patricio Nielsen MD @ 03/17/2019 17:18:33 (Electronically Signed)
[2019-03-17 17:54] VITALS: BP 122/62
--- NOTE | 2019-03-17 18:38 | US ---
INDICATION: Postop leg swelling. TECHNIQUE: Ultrasound venous duplex lower left extremity. Compression venous exam was performed using medina-scale, color Doppler, and spectral Doppler analysis. COMPARISON: None. FINDINGS: Sonographic imaging demonstrates the left common femoral, deep femoral, superficial femoral, popliteal and greater saphenous veins to be fully compressible with normal color Doppler blood flow. The calf veins were not able to be evaluated due to a postoperative bandage in place. Imaging of the contralateral right common femoral vein is within normal limits. No abnormal soft tissue mass or fluid collection. IMPRESSION: No evidence of deep venous thrombosis within the left lower extremity from the knee proximal. Dictated by Db Davila MD @ 03/17/2019 6:36:49 PM Dictated by: Db Davila MD @ 03/17/2019 18:36:58 (Electronically Signed)
== END 2019-03-17 19:04 | disposition home or self-care (01) ==
LOC: MW.ED 15:12
DX: M79.662 Pain in left lower leg (principal); E11.9 Type 2 diabetes mellitus without complications; Z79.4 Long term (current) use of insulin; Z79.899 Other long term (current) drug therapy; Z79.82 Long term (current) use of aspirin
CPT/HCPCS: 36415; 73502-26-LT; 73502-LT; 73560-26-LT; 73560-LT; 85025; 85610; 93971-26-LT; 93971-LT; 99284-25

== ENCOUNTER 2019-05-05 19:05 | Inpatient (IN) | payer MEDICARE, BC ==
[2019-05-05] MEDS ORDERED: methylPREDNISolone Sodium Succinate 125 MG/2 ML SDV IVPUSH ONE (19:11)
[2019-05-05] MEDS ORDERED: Furosemide 40 MG/4 ML VIAL IVPUSH ONE (19:11)
[2019-05-05] MEDS ORDERED: Albuterol/Ipratropium 3.0-0.5 MG/3 ML Neb Soln NEB ONE (19:11)
--- NOTE | 2019-05-05 19:13 | EDM.PDOC ---
ED HPI GENERAL MEDICAL PROBLEM - General Chief Complaint: Respiratory Problem Stated Complaint: TROUBLE BREATHING Time Seen by Provider: 05/05/19 19:12 Source of Information: Reports: Patient - History of Present Illness INITIAL COMMENTS - FREE TEXT/NARRATIVE: HISTORY AND PHYSICAL: History of present illness: [Patient presents with shortness of breath increasing over the last week notably has 3+ edema is in no distress no fever nausea vomiting chills sweats, no chest pain headache dizziness palpitation no bowel or urine symptoms] Review of systems: As per history of present illness and below otherwise all systems reviewed and negative. Past medical history: As per history of present illness and as reviewed below otherwise noncontributory. Surgical history: As per history of present illness and as reviewed below otherwise noncontributory. Social history: No reported history of drug or alcohol abuse. Family history: As per history of present illness and as reviewed below otherwise noncontributory. Physical exam: HEENT: Atraumatic, normocephalic, pupils reactive, negative for conjunctival pallor or scleral icterus, mucous membranes moist, throat clear, neck supple, nontender, trachea midline. Lungs: Clear to auscultation, breath sounds equal bilaterally, chest nontender. Heart: S1S2, regular, negative for clicks, rubs, or JVD. Abdomen: Soft, nondistended, nontender. Negative for masses or hepatosplenomegaly. Negative for costovertebral tenderness. Pelvis: Stable nontender. Genitourinary: Deferred. Rectal: Deferred. Extremities: Atraumatic, negative for cords or calf pain. Neurovascular unremarkable. 3+ edema Neuro: Awake, alert, oriented. Cranial nerves II through XII unremarkable. Cerebellum unremarkable. Motor and sensory unremarkable throughout. Exam nonfocal. Diagnostics: [CBC CMP UA troponin INR BN peptide EKG Chest 1 view] Therapeutics: [ normal saline Lasix Solu-Medrol DuoNeb ] Impression: [ CHF] 3+ edema Possible Infiltrate on chest x-ray left lower lobe-no clinical statement to support pneumonia at this time Chronic history of baseline Definitive disposition and diagnosis as appropriate pending reevaluation and review of above. - Related Data Allergies Allergy/AdvReac Type Severity Reaction Status Date / Time No Known Allergies Allergy Verified 05/05/19 19:21 Home Meds: Home Meds Bumetanide [Bumex] 2 mg PO DAILY 08/26/14 [History] Insulin Aspart [Novolog Flexpen] 10 units SUBCUT TIDAC 08/26/14 [History] Insulin Glarg,Human.Rec.Analog [Lantus] 40 unit SUBCUT DAILY 08/26/14 [History] Rosuvastatin [Crestor] 20 mg PO BEDTIME 08/26/14 [History] Aspirin [Halfprin] 81 mg PO DAILY 03/13/17 [History] Losartan [Cozaar] 50 mg PO BID 03/13/17 [History] Carvedilol [Coreg] 12.5 mg PO BIDMEALS 12/26/18 [History] Finasteride [Proscar] 5 mg PO DAILY 12/26/18 [History] Tamsulosin HCl 0.4 mg PO DAILY 12/26/18 [History] Acetaminophen/HYDROcodone [[place] 325-7.5 MG] 1 tab PO TID PRN 05/05/19 [History] Sennosides [Senna] 1 tab PO BEDTIME 05/05/19 [History] Past Medical History HEENT History: Reports: Hard of Hearing, Impaired Vision Cardiovascular History: Reports: Automatic Implantable Cardioverter Defibrillators, High Cholesterol, Hypertension Respiratory History: Reports: Croup Gastrointestinal History: Reports: Other (See Below) Other Gastrointestinal History: "Water on the belly" Genitourinary History: Reports: None Musculoskeletal History: Reports: Arthritis, Fracture Other Musculoskeletal History: left hand fracture Neurological History: Reports: None Psychiatric History: Reports: None Endocrine/Metabolic History: Reports: Diabetes, Type II Hematologic History: Reports: None Immunologic History: Reports: None Oncologic (Cancer) History: Reports: None Dermatologic History: Reports: None Other Dermatologic History: cellulitis of left leg with MRSA - Infectious Disease History Infectious Disease History: Reports: Chicken Pox, Measles, MRSA, Shingles - Past Surgical History HEENT Surgical History: Reports: Adenoidectomy, Tonsillectomy Cardiovascular Surgical History: Reports: Coronary Artery Bypass Musculoskeletal Surgical History: Reports: Other (See Below) Social & Family History - Family History Family Medical History: Noncontributory - Caffeine Use Caffeine Use: Reports: Coffee ED ROS GENERAL - Review of Systems Review Of Systems: See Below ED EXAM, GENERAL - Physical Exam Exam: See Below Course - Vital Signs Last Recorded V/S: Last Vital Signs Temp 97.1 F 05/05/19 19:05 Pulse 66 05/05/19 19:05 Resp 28 H 05/05/19 19:05 BP 141/106 H 05/05/19 19:05 Pulse Ox 96 05/05/19 19:05 - Orders/Labs/Meds Orders: Active Orders 24 hr Category Date Time Status EKG Documentation Completion [RC] STAT Care 05/05/19 19:08 Active RT Aerosol Therapy [RC] ASDIRECTED Care 05/05/19 19:11 Active B-TYPE NATRIURETIC PEPTIDE,BNP [CHEM] Stat Lab 05/05/19 19:55 Received UA RFX SAMSON AND CULT IF INDIC [URIN] Stat Lab 05/05/19 19:08 Ordered Labs: Laboratory Tests 05/05/19 05/05/19 05/05/19 Range/Units 19:55 19:55 19:55 WBC 5.70 (4.0-11.0) K/uL RBC 3.50 L (4.50-5.90) M/uL Hgb 11.2 L (13.0-17.0) g/dL Hct 35.9 L (38.0-50.0) % MCV 102.6 H (80.0-98.0) fL MCH 32.0 (27.0-32.0) pg MCHC 31.2 (31.0-37.0) g/dL RDW Std Deviation 58.6 (28.0-62.0) fl RDW Coeff of Anjana 16 H (11.0-15.0) % Plt Count 146 L (150-400) K/uL MPV 10.60 (7.40-12.00) fL Neut % (Auto) 61.6 (48.0-80.0) % Lymph % (Auto) 22.8 (16.0-40.0) % [place] % (Auto) 10.5 (0.0-15.0) % Eos % (Auto) 4.9 (0.0-7.0) % Baso % (Auto) 0.2 (0.0-1.5) % Neut # (Auto) 3.5 (1.4-5.7) K/uL Lymph # (Auto) 1.3 (0.6-2.4) K/uL [place] # (Auto) 0.6 (0.0-0.8) K/uL Eos # (Auto) 0.3 (0.0-0.7) K/uL Baso # (Auto) 0.0 (0.0-0.1) K/uL Nucleated RBC % 0.0 /100WBC Nucleated RBCs # 0 K/uL INR 1.20 Sodium 143 (136-148) mmol/L Potassium 3.8 (3.5-5.1) mmol/L Chloride 104 (98-107) mmol/L Carbon Dioxide 27.0 (21.0-32.0) mmol/L BUN 24 H (7.0-18.0) mg/dL Creatinine 1.5 H (0.8-1.3) mg/dL Est Cr Clr Drug Dosing 37.36 mL/min Estimated GFR (MDRD) 44.2 ml/min Glucose 126 H (74-106) mg/dL Calcium 8.9 (8.5-10.1) mg/dL Total Bilirubin 1.0 (0.2-1.0) mg/dL AST 23 (15-37) IU/L ALT 19 (14-63) IU/L Alkaline Phosphatase 176 H (46-116) U/L Troponin I < 0.050 (0.000-0.056) ng/mL Total Protein 6.7 (6.4-8.2) g/dL Albumin 3.3 L (3.4-5.0) g/dL Globulin 3.4 (2.6-4.0) g/dL Albumin/Globulin Ratio 1.0 (0.9-1.6) Meds: Medications Discontinued Medications Generic Name Dose Route Start Last Admin Trade Name Brisa PRN Reason Stop Dose Admin Albuterol/Ipratropium 3 ml 05/05/19 19:11 05/05/19 19:27 Duoneb 3.0-0.5 Mg/3 Ml NEB 05/05/19 19:12 3 ml ONETIME ONE Administration Furosemide 40 mg 05/05/19 19:11 05/05/19 20:07 Lasix IVPUSH 05/05/19 19:12 40 mg NOW ONE Administration Methylprednisolone Sodium Succinate 125 mg 05/05/19 19:11 05/05/19 20:01 Solu-Medrol IVPUSH 05/05/19 19:12 125 mg ONETIME ONE Administration Departure - Departure Time of Disposition: 20:37 Disposition: Home, Self-Care 01 Condition: Good Clinical Impression: CHF (congestive heart failure), Renal insufficiency - Discharge Information Referrals: Prince Echevarria MD [Primary Care Provider] - Forms: ED Department Discharge - My Orders Last 24 Hours: My Active Orders 05/05/19 19:08 EKG Documentation Completion [RC] STAT UA RFX SAMSON AND CULT IF INDIC [URIN] Stat 05/05/19 19:11 RT Aerosol Therapy [RC] ASDIRECTED 05/05/19 19:55 B-TYPE NATRIURETIC PEPTIDE,BNP [CHEM] Stat - Assessment/Plan Last 24 Hours: My Active Orders 05/05/19 19:08 EKG Documentation Completion [RC] STAT UA RFX SAMSON AND CULT IF INDIC [URIN] Stat 05/05/19 19:11 RT Aerosol Therapy [RC] ASDIRECTED 05/05/19 19:55 B-TYPE NATRIURETIC PEPTIDE,BNP [CHEM] Stat
--- NOTE | 2019-05-05 19:59 | CR ---
INDICATION: Shortness of breath TECHNIQUE: Chest 1 views COMPARISON: December 26, 2018 FINDINGS: Cardiovascular and mediastinum: AICD is unchanged. Stable cardiomegaly. Moderate pulmonary vascular congestion. Lungs and pleural spaces: Ill-defined opacities obscuring the lower half of the left lung. Remainder of the lungs and pleural spaces are clear. No pneumothorax. Bones and soft tissues: No significant findings. IMPRESSION: 1. Persistent cardiomegaly and pulmonary vascular congestion. 2. Ill-defined opacity obscuring the lower left lung fluid largely be due to cardiomegaly and overlying soft tissues. However, the presence of a left lower lobe infiltrate, atelectasis and/or pleural effusion are possible. Dictated by Conner Zamudio MD @ May 05 2019 7:53PM Signed by Dr. Conner Zamudio @ May 05 2019 7:57PM
[2019-05-05 20:24] LABS: BLOOD UREA NITROGEN,BUN 24 mg/dL (7.0-18.0); CHLORIDE,CL 104 mmol/L (98-107); GLUCOSE RANDOM 126 mg/dL (74-106); POTASSIUM,K 3.8 mmol/L (3.5-5.1); SODIUM,NA 143 mmol/L (136-148)
[2019-05-05] MEDS ORDERED: Acetaminophen 325 MG Tab PO PRN (22:00)
[2019-05-05] MEDS ORDERED: oxyCODONE 5 MG Tab PO PRN (22:00)
[2019-05-05] MEDS ORDERED: Sodium Chloride 0.9% 10 ML Syringe FLUSH PRN (22:02)
[2019-05-05] MEDS ORDERED: Sodium Chloride 0.9% 2.5 ML Syringe FLUSH PRN (22:02)
[2019-05-06] MEDS: Insulin Aspart 100 Units/ML 3 ML Pen SUBCUT SCH ×3 (07:45→18:35)
[2019-05-06] MEDS: Heparin Sodium 5,000 Units/ML Vial SUBCUT SCH ×3 (07:46→23:22)
[2019-05-06 07:51] LABS: CARBON DIOXIDE,CO2 25.6 mmol/L (21.0-32.0); POTASSIUM,K 4.1 mmol/L (3.5-5.1)
--- NOTE | 2019-05-06 08:06 | PCM.HP.2 ---
<Sowmya Anand M - Last Filed: 05/06/19 10:42> H&P History of Present Illness - General Date of Service: 05/06/19 Admit Problem/Dx: Admission Diagnosis/Problem Admission Diagnosis/Problem CHF, Congestive heart failure Source of Information: Patient, Family History Limitations: Reports: No Limitations - History of Present Illness Initial Comments - Free Text/Narative: This 88 year old male with pmh of DM type 2, HTN, CHF, CAD, AICD, ADAIR who doesn' t use CPAP, intermittent home oxygen and CKD stage III presented to the ED last evening with worsening shortness of breath and lower leg edema. He reports he can barely walk across the room without being significantly short of breath. He wears oxygen at home intermittently when he is feeling short of breath. He reports productive cough with [place] green sputum. He denies fevers, chills or sore throat. Reports some sinus congestion, but no ear pain. He denies chest pain, abdominal pain or urinary concerns. He reports he does sleep with pillows at home, lie flat in bed. No change in diet, no heavily salted foods recently. Reports he hasn't used salt in years, but reports drinking a lot of juice. No tobacco use, no alcohol use and no recreational drug use. In the ED, platelets noted to be 146. INR 1.20., BUN 24 and Cr 1.5, which is near baseline. Troponin negative. BNP 358, which is low compared to previous CHF admission. CXR revealed cardiomegaly with pulmonary venous congestion. Possible infiltrate, atelectasis in L lung, obscured by heart and body habitus. EKG, Vpaced, sinus. BP elevated 170s on arrival. 3 L NC in ED as well. He was treated with Solumedrol, Lasix and IV fluids in the ED. PCP, Dr Echevarria Mask Layout Designer, Dr Gillis. - Related Data Allergies/Adverse Reactions: Allergies Allergy/AdvReac Type Severity Reaction Status Date / Time No Known Allergies Allergy Verified 05/05/19 19:21 Home Medications: Home Meds Bumetanide [Bumex] 2 mg PO DAILY 08/26/14 [History] Insulin Aspart [Novolog Flexpen] 10 units SUBCUT BID 08/26/14 [History] Insulin Glarg,Human.Rec.Analog [Lantus] 40 unit SUBCUT DAILY 08/26/14 [History] Rosuvastatin [Crestor] 20 mg PO BEDTIME 08/26/14 [History] Aspirin [Halfprin] 81 mg PO DAILY 03/13/17 [History] Losartan [Cozaar] 50 mg PO DAILY 03/13/17 [History] Carvedilol [Coreg] 12.5 mg PO BIDMEALS 12/26/18 [History] Acetaminophen/HYDROcodone [[place] 325-7.5 MG] 1 tab PO TID PRN 05/05/19 [History] Sennosides [Senna] 1 tab PO BEDTIME 05/05/19 [History] Amoxicillin 1,000 mg PO BID 05/06/19 [History] Past Medical History HEENT History: Reports: Hard of Hearing, Impaired Vision Cardiovascular History: Reports: Afib, Automatic Implantable Cardioverter Defibrillators, CAD, Heart Failure, High Cholesterol, Hypertension, HI Respiratory History: Reports: Croup, Sleep Apnea (does not use CPAP) Gastrointestinal History: Reports: None Genitourinary History: Reports: Chronic Renal Insuffiency (stage III renal failure) Musculoskeletal History: Reports: Arthritis, Fracture Other Musculoskeletal History: left hand fracture Neurological History: Reports: None. 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) - Infectious Disease History Infectious Disease History: Reports: Chicken Pox, Measles, MRSA, Shingles - Past Surgical History HEENT Surgical History: Reports: Adenoidectomy, Tonsillectomy Cardiovascular Surgical History: Reports: AICD, Coronary Artery Bypass Dermatological Surgical History: Reports: Other (See Below) (laceration to L leg with continued chornic ulcer and recurrent cellulitis.) Social & Family History - Family History Family Medical History: Noncontributory - Tobacco Use Smoking Status *Q: Former Smoker Used Tobacco, but Quit: Yes Month/Year Tobacco Last Used: 20 years ago - Caffeine Use Caffeine Use: Reports: Coffee, Soda, Tea - Alcohol Use Alcohol Use History: No Date of Last Drink: 03/03/19 - Recreational Drug Use Recreational Drug Use: No - Living Situation & Occupation Living situation: Reports: Occupation: Retired H&P Review of Systems - Review of Systems: Review Of Systems: See Below General: Reports: Malaise. Denies: Fever, Chills HEENT: Reports: Sinus Congestion. Denies: Headaches, Sore Throat, Visual Changes Pulmonary: Reports: Shortness of Breath, Cough, Sputum (medina green). Denies: Pleuritic Chest Pain, Hemoptysis Cardiovascular: Reports: Dyspnea on Exertion, Edema (lower legs). Denies: Chest Pain, Orthopnea, Syncope, Blood Pressure Problem Gastrointestinal: Reports: No Symptoms. Denies: Abdominal Pain, Black Stool, Bloody Stool, Nausea, Vomiting Genitourinary: Reports: No Symptoms. Denies: Dysuria, Frequency, Burning Musculoskeletal: Reports: No Symptoms Skin: Reports: Wound (L lower leg) Neurological: Reports: No Symptoms Hematologic/Lymphatic: Reports: No Symptoms Immunologic: Reports: No Symptoms Exam - Exam Exam: See Below - Vital Signs Vital Signs: Last Vital Signs Temp 96.8 F 05/06/19 07:56 Pulse 66 05/06/19 07:56 Resp 20 05/06/19 07:56 BP 154/83 H 05/06/19 07:56 Pulse Ox 97 05/06/19 07:56 Weight: 136.395 kg - Exam General: Alert, Oriented, Cooperative HEENT: Conjunctiva Clear, Nares Patent, Posterior Pharynx Clear Neck: JVD Lungs: Decreased Breath Sounds (bibasilar), Crackles. No: Normal Respiratory Effort (dyspneic with speech) Cardiovascular: Regular Rate, Regular Rhythm, Normal S1, Normal S2. No: Systolic Murmur GI/Abdominal Exam: Normal Bowel Sounds, Soft, Non-Tender, Other (obese abdomen) Back Exam: Normal Inspection, Full Range of Motion Extremities: Normal Range of Motion, Non-Tender, Pedal Edema (+3 pitting edema to bilateral legs extending from feet to lower abdomen, decreasing in amount as you extend proximally) Skin: Wound (Left anterior lower leg, chronic healing ulcer no S/S infection. daughter reports it looks really good at this time.) Neuro Extensive - Mental Status: Alert, Oriented x3, Normal Mood/Affect Psychiatric: Alert, Normal Affect, Normal Mood - Patient Data Lab Results Last 24 hrs: Laboratory Results - last 24 hr 05/05/19 05/05/19 05/05/19 Range/Units 19:55 19:55 19:55 WBC 5.70 (4.0-11.0) K/uL RBC 3.50 L (4.50-5.90) M/uL Hgb 11.2 L (13.0-17.0) g/dL Hct 35.9 L (38.0-50.0) % MCV 102.6 H (80.0-98.0) fL MCH 32.0 (27.0-32.0) pg MCHC 31.2 (31.0-37.0) g/dL RDW Std Deviation 58.6 (28.0-62.0) fl RDW Coeff of Anjana 16 H (11.0-15.0) % Plt Count 146 L (150-400) K/uL MPV 10.60 (7.40-12.00) fL Neut % (Auto) 61.6 (48.0-80.0) % Lymph % (Auto) 22.8 (16.0-40.0) % Karnes % (Auto) 10.5 (0.0-15.0) % Eos % (Auto) 4.9 (0.0-7.0) % Baso % (Auto) 0.2 (0.0-1.5) % Neut # (Auto) 3.5 (1.4-5.7) K/uL Lymph # (Auto) 1.3 (0.6-2.4) K/uL Karnes # (Auto) 0.6 (0.0-0.8) K/uL Eos # (Auto) 0.3 (0.0-0.7) K/uL Baso # (Auto) 0.0 (0.0-0.1) K/uL Nucleated RBC % 0.0 /100WBC Nucleated RBCs # 0 K/uL INR 1.20 Sodium 143 (136-148) mmol/L Potassium 3.8 (3.5-5.1) mmol/L Chloride 104 (98-107) mmol/L Carbon Dioxide 27.0 (21.0-32.0) mmol/L BUN 24 H (7.0-18.0) mg/dL Creatinine 1.5 H (0.8-1.3) mg/dL Est Cr Clr Drug Dosing 37.36 mL/min Estimated GFR (MDRD) 44.2 ml/min Glucose 126 H (74-106) mg/dL POC Glucose (60-110) mg/dL Calcium 8.9 (8.5-10.1) mg/dL Total Bilirubin 1.0 (0.2-1.0) mg/dL AST 23 (15-37) IU/L ALT 19 (14-63) IU/L Alkaline Phosphatase 176 H (46-116) U/L Troponin I < 0.050 (0.000-0.056) ng/mL B-Natriuretic Peptide (<100) PG/ML Total Protein 6.7 (6.4-8.2) g/dL Albumin 3.3 L (3.4-5.0) g/dL Globulin 3.4 (2.6-4.0) g/dL Albumin/Globulin Ratio 1.0 (0.9-1.6) Urine Color Urine Appearance Urine pH (5.0-8.0) Ur Specific [place] (1.001-1.035) Urine Protein (NEGATIVE) mg/dL Urine Glucose (UA) (NEGATIVE) mg/dL Urine Ketones (NEGATIVE) mg/dL Urine Occult Blood (NEGATIVE) Urine Nitrite (NEGATIVE) Urine Bilirubin (NEGATIVE) Urine Urobilinogen (<2.0) EU/dL Ur Leukocyte Esterase (NEGATIVE) Urine RBC (0-2/HPF) Urine WBC (0-5/HPF) Ur Epithelial Cells (NONE-FEW) Urine Bacteria (NEGATIVE) 05/05/19 05/05/19 05/06/19 Range/Units 19:55 21:05 06:01 WBC 3.58 L (4.0-11.0) K/uL RBC 3.35 L (4.50-5.90) M/uL Hgb 10.7 L (13.0-17.0) g/dL Hct 34.6 L (38.0-50.0) % MCV 103.3 H (80.0-98.0) fL MCH 31.9 (27.0-32.0) pg MCHC 30.9 L (31.0-37.0) g/dL RDW Std Deviation 59.1 (28.0-62.0) fl RDW Coeff of Anjana 16 H (11.0-15.0) % Plt Count 131 L (150-400) K/uL MPV 10.70 (7.40-12.00) fL Neut % (Auto) 86.9 H (48.0-80.0) % Lymph % (Auto) 12.0 L (16.0-40.0) % Karnes % (Auto) 1.1 (0.0-15.0) % Eos % (Auto) 0.0 (0.0-7.0) % Baso % (Auto) 0.0 (0.0-1.5) % Neut # (Auto) 3.1 (1.4-5.7) K/uL Lymph # (Auto) 0.4 L (0.6-2.4) K/uL Karnes # (Auto) 0.0 (0.0-0.8) K/uL Eos # (Auto) 0.0 (0.0-0.7) K/uL Baso # (Auto) 0.0 (0.0-0.1) K/uL Nucleated RBC % 0.0 /100WBC Nucleated RBCs # 0 K/uL INR Sodium (136-148) mmol/L Potassium (3.5-5.1) mmol/L Chloride (98-107) mmol/L Carbon Dioxide (21.0-32.0) mmol/L BUN (7.0-18.0) mg/dL Creatinine (0.8-1.3) mg/dL Est Cr Clr Drug Dosing mL/min Estimated GFR (MDRD) ml/min Glucose (74-106) mg/dL POC Glucose (60-110) mg/dL Calcium (8.5-10.1) mg/dL Total Bilirubin (0.2-1.0) mg/dL AST (15-37) IU/L ALT (14-63) IU/L Alkaline Phosphatase (46-116) U/L Troponin I (0.000-0.056) ng/mL B-Natriuretic Peptide 358 H (<100) PG/ML Total Protein (6.4-8.2) g/dL Albumin (3.4-5.0) g/dL Globulin (2.6-4.0) g/dL Albumin/Globulin Ratio (0.9-1.6) Urine Color YELLOW Urine Appearance CLEAR Urine pH 6.0 (5.0-8.0) Ur Specific [place] 1.020 (1.001-1.035) Urine Protein 30 H (NEGATIVE) mg/dL Urine Glucose (UA) NEGATIVE (NEGATIVE) mg/dL Urine Ketones NEGATIVE (NEGATIVE) mg/dL Urine Occult Blood NEGATIVE (NEGATIVE) Urine Nitrite NEGATIVE (NEGATIVE) Urine Bilirubin NEGATIVE (NEGATIVE) Urine Urobilinogen 0.2 (<2.0) EU/dL Ur Leukocyte Esterase TRACE H (NEGATIVE) Urine RBC 0-1 (0-2/HPF) Urine WBC 4-6 (0-5/HPF) Ur Epithelial Cells RARE (NONE-FEW) Urine Bacteria RARE (NEGATIVE) 05/06/19 05/06/19 Range/Units 06:01 07:44 WBC (4.0-11.0) K/uL RBC (4.50-5.90) M/uL Hgb (13.0-17.0) g/dL Hct (38.0-50.0) % MCV (80.0-98.0) fL MCH (27.0-32.0) pg MCHC (31.0-37.0) g/dL RDW Std Deviation (28.0-62.0) fl RDW Coeff of Anjana (11.0-15.0) % Plt Count (150-400) K/uL MPV (7.40-12.00) fL Neut % (Auto) (48.0-80.0) % Lymph % (Auto) (16.0-40.0) % Karnes % (Auto) (0.0-15.0) % Eos % (Auto) (0.0-7.0) % Baso % (Auto) (0.0-1.5) % Neut # (Auto) (1.4-5.7) K/uL Lymph # (Auto) (0.6-2.4) K/uL Karnes # (Auto) (0.0-0.8) K/uL Eos # (Auto) (0.0-0.7) K/uL Baso # (Auto) (0.0-0.1) K/uL Nucleated RBC % /100WBC Nucleated RBCs # K/uL INR Sodium 141 (136-148) mmol/L Potassium 4.1 (3.5-5.1) mmol/L Chloride 105 (98-107) mmol/L Carbon Dioxide 25.6 (21.0-32.0) mmol/L BUN 29 H (7.0-18.0) mg/dL Creatinine 1.7 H (0.8-1.3) mg/dL Est Cr Clr Drug Dosing 31.01 mL/min Estimated GFR (MDRD) 38.2 ml/min Glucose 207 H (74-106) mg/dL POC Glucose 205 H (60-110) mg/dL Calcium 8.6 (8.5-10.1) mg/dL Total Bilirubin (0.2-1.0) mg/dL AST (15-37) IU/L ALT (14-63) IU/L Alkaline Phosphatase (46-116) U/L Troponin I (0.000-0.056) ng/mL B-Natriuretic Peptide (<100) PG/ML Total Protein (6.4-8.2) g/dL Albumin (3.4-5.0) g/dL Globulin (2.6-4.0) g/dL Albumin/Globulin Ratio (0.9-1.6) Urine Color Urine Appearance Urine pH (5.0-8.0) Ur Specific [place] (1.001-1.035) Urine Protein (NEGATIVE) mg/dL Urine Glucose (UA) (NEGATIVE) mg/dL Urine Ketones (NEGATIVE) mg/dL Urine Occult Blood (NEGATIVE) Urine Nitrite (NEGATIVE) Urine Bilirubin (NEGATIVE) Urine Urobilinogen (<2.0) EU/dL Ur Leukocyte Esterase (NEGATIVE) Urine RBC (0-2/HPF) Urine WBC (0-5/HPF) Ur Epithelial Cells (NONE-FEW) Urine Bacteria (NEGATIVE) Result Diagrams: 05/06/19 06:01 05/06/19 06:01 EKG INTERPRETATION EKG Date: 05/05/19 Rhythm: Other (V paced) Rate (Beats/Min): 70 QRS: Wide ST-T: Normal QT: Normal - Problem List (1) CHF (congestive heart failure) SNOMED Code(s): 43028270 ICD Code: I50.9 - HEART FAILURE, UNSPECIFIED Status: Acute Priority: Medium Current Visit: Yes Qualifiers: Heart failure type: unspecified Heart failure chronicity: acute Qualified Code(s): I50.9 - Heart failure, unspecified (2) HTN (hypertension) SNOMED Code(s): 54185280 ICD Code: I10 - ESSENTIAL (PRIMARY) HYPERTENSION Status: Chronic Current Visit: Yes Qualifiers: Hypertension type: essential hypertension Qualified Code(s): I10 - Essential (primary) hypertension (3) DM type 2 (diabetes mellitus, type 2) SNOMED Code(s): 28122860 ICD Code: E11.9 - TYPE 2 DIABETES MELLITUS WITHOUT COMPLICATIONS Status: Chronic Current Visit: Yes Qualifiers: Diabetes mellitus ad terminal makeup operator insulin use: with ad terminal makeup operator use Diabetes mellitus complication status: with skin complications Diabetes mellitus complication detail: with other skin ulcer Qualified Code(s): E11.622 - Type 2 diabetes mellitus with other skin ulcer; Z79.4 - long term care pharmacist (current) use of insulin (4) Morbid obesity SNOMED Code(s): 370424213 ICD Code: E66.01 - MORBID (SEVERE) OBESITY DUE TO EXCESS CALORIES Status: Chronic Current Visit: Yes (5) Plaque psoriasis SNOMED Code(s): 393832719 ICD Code: L40.0 - PSORIASIS VULGARIS Status: Chronic Current Visit: Yes (6) ADAIR (obstructive sleep apnea) SNOMED Code(s): 31131512 ICD Code: G47.33 - OBSTRUCTIVE SLEEP APNEA (ADULT) (PEDIATRIC) Status: Chronic Current Visit: Yes (7) BPH (benign prostatic hyperplasia) SNOMED Code(s): 462899878 ICD Code: N40.0 - BENIGN PROSTATIC HYPERPLASIA WITHOUT LOWER URINRY TRACT SYMP Status: Chronic Current Visit: Yes (8) CKD (chronic kidney disease) SNOMED Code(s): 728110277 ICD Code: N18.9 - CHRONIC KIDNEY DISEASE, UNSPECIFIED Status: Acute Current Visit: Yes Qualifiers: Chronic kidney disease stage: stage 3 (moderate) Qualified Code(s): N18.3 - Chronic kidney disease, stage 3 (moderate) (9) Recurrent cellulitis of lower extremity SNOMED Code(s): 533574761, 423683704 ICD Code: L03.119 - CELLULITIS OF UNSPECIFIED PART OF LIMB Status: Chronic Current Visit: Yes (10) Hearing impairment SNOMED Code(s): 86361009 ICD Code: H91.90 - UNSPECIFIED HEARING LOSS, UNSPECIFIED EAR Status: Chronic Current Visit: Yes (11) AICD (automatic cardioverter/defibrillator) present SNOMED Code(s): 587248525, 758737114 ICD Code: Z95.810 - PRESENCE OF AUTOMATIC (IMPLANTABLE) CARDIAC DEFIBRILLATOR Status: Chronic Current Visit: Yes (12) Oxygen dependent SNOMED Code(s): 799391298395 ICD Code: Z99.81 - DEPENDENCE ON SUPPLEMENTAL OXYGEN Status: Chronic Current Visit: Yes Problem List Initiated/Reviewed/Updated: Yes Orders Last 24hrs: Active Orders 24 hr Category Date Time Status Admission Status [Patient Status] [ADT] Stat ADT 05/05/19 20:38 Active Blood Glucose Check, Bedside [RC] TIDMEALS Care 05/06/19 06:50 Active Blood Glucose Check, Bedside [RC] TIDMEALS Care 05/06/19 06:50 Inactive Cardiac Monitoring [RC] CONTINUOUS Care 05/06/19 06:50 Inactive Daily Weight [Height and Weight] [RC] DAILY Care 05/06/19 08:05 Ordered Diabetes Education [RC] Click to Edit Care 05/06/19 06:54 Active EKG Documentation Completion [RC] STAT Care 05/05/19 19:08 Active Intake and Output Strict [RC] Q12H Care 05/06/19 08:05 Ordered Oxygen Therapy [RC] PRN Care 05/06/19 06:50 Active RT Aerosol Therapy [RC] ASDIRECTED Care 05/05/19 19:11 Active Telemetry Monitoring [Cardiac Monitoring] [RC] Q8H Care 05/05/19 20:49 Active Up With Assistance [RC] ASDIRECTED Care 05/06/19 06:50 Active VTE/DVT Education [RC] PER UNIT ROUTINE Care 05/06/19 06:50 Active Vital Signs [RC] Q4H Care 05/06/19 06:50 Active OT Evaluation and Treatment [CONS] Routine Cons 05/06/19 06:50 Active PT Evaluation and Treatment [CONS] Routine Cons 05/06/19 06:50 Active Heart Healthy Diet [DIET] Diet 05/06/19 Breakfast Active CBC WITH AUTO DIFF [HEME] AM Lab 05/07/19 05:11 Ordered COMPREHENSIVE METABOLIC PN,CMP [CHEM] AM Lab 05/07/19 05:11 Ordered CULTURE URINE [RM] Stat Lab 05/05/19 21:05 Received Acetaminophen [Tylenol] Med 05/05/19 22:00 Active 650 mg PO Q6H PRN Carvedilol [Coreg] Med 05/06/19 08:00 Active 12.5 mg PO BIDMEALS Finasteride [Proscar] Med 05/06/19 09:00 Active 5 mg PO DAILY Furosemide [Lasix] Med 05/06/19 08:03 Ordered 60 mg IVPUSH BIDDIURETIC Heparin Sodium Med 05/06/19 07:00 Active 5,000 units SUBCUT Q8H Insulin Aspart [NovoLOG] Med 05/06/19 07:30 Active See Protocol SUBCUT TIDAC Losartan [Cozaar] Med 05/06/19 09:00 Active 50 mg PO BID Rosuvastatin [Crestor] Med 05/06/19 21:00 Active 20 mg PO BEDTIME Sennosides [Senna] Med 05/06/19 21:00 Active 8.6 mg PO BEDTIME Sodium Chloride 0.9% [Saline Flush] Med 05/05/19 22:02 Active 10 ml FLUSH ASDIRECTED PRN Sodium Chloride 0.9% [Saline Flush] Med 05/05/19 22:02 Active 2.5 ml FLUSH ASDIRECTED PRN Tamsulosin [Flomax] Med 05/06/19 09:00 Active 0.4 mg PO DAILY Convert IV to Saline Lock [OM.PC] Routine Oth 05/05/19 22:02 Ordered Glucose Management Sub Q Reflex [OM.PC] Click To Edit Oth 05/06/19 06:50 Ordered Medication Orders Acetaminophen (Tylenol) 650 mg PO Q6H PRN PRN Reason: Pain/Fever Carvedilol (Coreg) 12.5 mg PO BIDMEALS HUAN Finasteride (Proscar) 5 mg PO DAILY HUAN Furosemide (Lasix) 60 mg IVPUSH BIDDIURETIC HUAN Heparin Sodium (Porcine) (Heparin Sodium) 5,000 units SUBCUT Q8H HUAN Last Admin: 05/06/19 07:46 Dose: 5,000 units Insulin Aspart (Novolog) 0 unit SUBCUT TIDAC HUAN; Protocol Last Admin: 05/06/19 07:45 Dose: 4 units Losartan Potassium (Cozaar) 50 mg PO BID HUAN Rosuvastatin Calcium (Crestor) 20 mg PO BEDTIME HUAN Senna (Senna) 8.6 mg PO BEDTIME HUAN Sodium Chloride (Saline Flush) 10 ml FLUSH ASDIRECTED PRN PRN Reason: Keep Vein Open Sodium Chloride (Saline Flush) 2.5 ml FLUSH ASDIRECTED PRN PRN Reason: Keep Vein Open Tamsulosin HCl (Flomax) 0.4 mg PO DAILY HUAN Assessment/Plan Comment:: This 88 year old male admitted with CHF exacerbation 1. CHF exacerbation: Unable to find recent ECHO, will see if Dr Gillis has recent otherwise will order ECHO. Hold PO Bumex. Start Lasix 60 mg IV BID. Strict I/O daily weights. Low Na diet with 2 L FR. Will obtain CT of chest to further evaluate L lung, rule out pneumonia. Elevate legs. Oxygen PRN to keep sats 90%, on chronic oxygen intermittently at home. 2. DM Type 2: Novolog SSI, continue Lantus, but will decrease dose to 30 units from 40 while in the hospital. Monitor TIDAC. 3. HTN: Continue Losartan, Coreg. Monitor with increase in Diuresis. 4. 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 Wound care consult. VTE prophylaxis: Heparin. Dispo: 2-3 days pending improvement. - Mortality Measure Prognosis:: Good <Tera Muhammad - Last Filed: 05/06/19 16:32> H&P History of Present Illness - General Admit Problem/Dx: Admission Diagnosis/Problem Admission Diagnosis/Problem CHF, Congestive heart failure I have seen and examined the patient independently of Sowmya Anand CNP. I have reviewed and agree with the plan of care as outlined for this patient by her. I have discussed the case with her. Please see orders. Exam - Vital Signs Vital Signs: Last Vital Signs Temp 36.2 C 05/06/19 16:00 Pulse 62 05/06/19 16:00 Resp 20 05/06/19 16:00 BP 129/62 05/06/19 16:00 Pulse Ox 100 05/06/19 16:00 - Patient Data Lab Results Last 24 hrs: Laboratory Results - last 24 hr 05/05/19 05/05/19 05/05/19 Range/Units 19:55 19:55 19:55 WBC 5.70 (4.0-11.0) K/uL RBC 3.50 L (4.50-5.90) M/uL Hgb 11.2 L (13.0-17.0) g/dL Hct 35.9 L (38.0-50.0) % MCV 102.6 H (80.0-98.0) fL MCH 32.0 (27.0-32.0) pg MCHC 31.2 (31.0-37.0) g/dL RDW Std Deviation 58.6 (28.0-62.0) fl RDW Coeff of Anjana 16 H (11.0-15.0) % Plt Count 146 L (150-400) K/uL MPV 10.60 (7.40-12.00) fL Neut % (Auto) 61.6 (48.0-80.0) % Lymph % (Auto) 22.8 (16.0-40.0) % Karnes % (Auto) 10.5 (0.0-15.0) % Eos % (Auto) 4.9 (0.0-7.0) % Baso % (Auto) 0.2 (0.0-1.5) % Neut # (Auto) 3.5 (1.4-5.7) K/uL Lymph # (Auto) 1.3 (0.6-2.4) K/uL Karnes # (Auto) 0.6 (0.0-0.8) K/uL Eos # (Auto) 0.3 (0.0-0.7) K/uL Baso # (Auto) 0.0 (0.0-0.1) K/uL Nucleated RBC % 0.0 /100WBC Nucleated RBCs # 0 K/uL INR 1.20 Sodium 143 (136-148) mmol/L Potassium 3.8 (3.5-5.1) mmol/L Chloride 104 (98-107) mmol/L Carbon Dioxide 27.0 (21.0-32.0) mmol/L BUN 24 H (7.0-18.0) mg/dL Creatinine 1.5 H (0.8-1.3) mg/dL Est Cr Clr Drug Dosing 37.36 mL/min Estimated GFR (MDRD) 44.2 ml/min Glucose 126 H (74-106) mg/dL POC Glucose (60-110) mg/dL Calcium 8.9 (8.5-10.1) mg/dL Total Bilirubin 1.0 (0.2-1.0) mg/dL AST 23 (15-37) IU/L ALT 19 (14-63) IU/L Alkaline Phosphatase 176 H (46-116) U/L Troponin I < 0.050 (0.000-0.056) ng/mL B-Natriuretic Peptide (<100) PG/ML Total Protein 6.7 (6.4-8.2) g/dL Albumin 3.3 L (3.4-5.0) g/dL Globulin 3.4 (2.6-4.0) g/dL Albumin/Globulin Ratio 1.0 (0.9-1.6) Urine Color Urine Appearance Urine pH (5.0-8.0) Ur Specific [place] (1.001-1.035) Urine Protein (NEGATIVE) mg/dL Urine Glucose (UA) (NEGATIVE) mg/dL Urine Ketones (NEGATIVE) mg/dL Urine Occult Blood (NEGATIVE) Urine Nitrite (NEGATIVE) Urine Bilirubin (NEGATIVE) Urine Urobilinogen (<2.0) EU/dL Ur Leukocyte Esterase (NEGATIVE) Urine RBC (0-2/HPF) Urine WBC (0-5/HPF) Ur Epithelial Cells (NONE-FEW) Urine Bacteria (NEGATIVE) 05/05/19 05/05/19 05/06/19 Range/Units 19:55 21:05 06:01 WBC 3.58 L (4.0-11.0) K/uL RBC 3.35 L (4.50-5.90) M/uL Hgb 10.7 L (13.0-17.0) g/dL Hct 34.6 L (38.0-50.0) % MCV 103.3 H (80.0-98.0) fL MCH 31.9 (27.0-32.0) pg MCHC 30.9 L (31.0-37.0) g/dL RDW Std Deviation 59.1 (28.0-62.0) fl RDW Coeff of Anjana 16 H (11.0-15.0) % Plt Count 131 L (150-400) K/uL MPV 10.70 (7.40-12.00) fL Neut % (Auto) 86.9 H (48.0-80.0) % Lymph % (Auto) 12.0 L (16.0-40.0) % Karnes % (Auto) 1.1 (0.0-15.0) % Eos % (Auto) 0.0 (0.0-7.0) % Baso % (Auto) 0.0 (0.0-1.5) % Neut # (Auto) 3.1 (1.4-5.7) K/uL Lymph # (Auto) 0.4 L (0.6-2.4) K/uL Karnes # (Auto) 0.0 (0.0-0.8) K/uL Eos # (Auto) 0.0 (0.0-0.7) K/uL Baso # (Auto) 0.0 (0.0-0.1) K/uL Nucleated RBC % 0.0 /100WBC Nucleated RBCs # 0 K/uL INR Sodium (136-148) mmol/L Potassium (3.5-5.1) mmol/L Chloride (98-107) mmol/L Carbon Dioxide (21.0-32.0) mmol/L BUN (7.0-18.0) mg/dL Creatinine (0.8-1.3) mg/dL Est Cr Clr Drug Dosing mL/min Estimated GFR (MDRD) ml/min Glucose (74-106) mg/dL POC Glucose (60-110) mg/dL Calcium (8.5-10.1) mg/dL Total Bilirubin (0.2-1.0) mg/dL AST (15-37) IU/L ALT (14-63) IU/L Alkaline Phosphatase (46-116) U/L Troponin I (0.000-0.056) ng/mL B-Natriuretic Peptide 358 H (<100) PG/ML Total Protein (6.4-8.2) g/dL Albumin (3.4-5.0) g/dL Globulin (2.6-4.0) g/dL Albumin/Globulin Ratio (0.9-1.6) Urine Color YELLOW Urine Appearance CLEAR Urine pH 6.0 (5.0-8.0) Ur Specific [place] 1.020 (1.001-1.035) Urine Protein 30 H (NEGATIVE) mg/dL Urine Glucose (UA) NEGATIVE (NEGATIVE) mg/dL Urine Ketones NEGATIVE (NEGATIVE) mg/dL Urine Occult Blood NEGATIVE (NEGATIVE) Urine Nitrite NEGATIVE (NEGATIVE) Urine Bilirubin NEGATIVE (NEGATIVE) Urine Urobilinogen 0.2 (<2.0) EU/dL Ur Leukocyte Esterase TRACE H (NEGATIVE) Urine RBC 0-1 (0-2/HPF) Urine WBC 4-6 (0-5/HPF) Ur Epithelial Cells RARE (NONE-FEW) Urine Bacteria RARE (NEGATIVE) 05/06/19 05/06/19 05/06/19 Range/Units 06:01 07:44 11:39 WBC (4.0-11.0) K/uL RBC (4.50-5.90) M/uL Hgb (13.0-17.0) g/dL Hct (38.0-50.0) % MCV (80.0-98.0) fL MCH (27.0-32.0) pg MCHC (31.0-37.0) g/dL RDW Std Deviation (28.0-62.0) fl RDW Coeff of Anjana (11.0-15.0) % Plt Count (150-400) K/uL MPV (7.40-12.00) fL Neut % (Auto) (48.0-80.0) % Lymph % (Auto) (16.0-40.0) % Karnes % (Auto) (0.0-15.0) % Eos % (Auto) (0.0-7.0) % Baso % (Auto) (0.0-1.5) % Neut # (Auto) (1.4-5.7) K/uL Lymph # (Auto) (0.6-2.4) K/uL Karnes # (Auto) (0.0-0.8) K/uL Eos # (Auto) (0.0-0.7) K/uL Baso # (Auto) (0.0-0.1) K/uL Nucleated RBC % /100WBC Nucleated RBCs # K/uL INR Sodium 141 (136-148) mmol/L Potassium 4.1 (3.5-5.1) mmol/L Chloride 105 (98-107) mmol/L Carbon Dioxide 25.6 (21.0-32.0) mmol/L BUN 29 H (7.0-18.0) mg/dL Creatinine 1.7 H (0.8-1.3) mg/dL Est Cr Clr Drug Dosing 31.01 mL/min Estimated GFR (MDRD) 38.2 ml/min Glucose 207 H (74-106) mg/dL POC Glucose 205 H 333 H (60-110) mg/dL Calcium 8.6 (8.5-10.1) mg/dL Total Bilirubin (0.2-1.0) mg/dL AST (15-37) IU/L ALT (14-63) IU/L Alkaline Phosphatase (46-116) U/L Troponin I (0.000-0.056) ng/mL B-Natriuretic Peptide (<100) PG/ML Total Protein (6.4-8.2) g/dL Albumin (3.4-5.0) g/dL Globulin (2.6-4.0) g/dL Albumin/Globulin Ratio (0.9-1.6) Urine Color Urine Appearance Urine pH (5.0-8.0) Ur Specific [place] (1.001-1.035) Urine Protein (NEGATIVE) mg/dL Urine Glucose (UA) (NEGATIVE) mg/dL Urine Ketones (NEGATIVE) mg/dL Urine Occult Blood (NEGATIVE) Urine Nitrite (NEGATIVE) Urine Bilirubin (NEGATIVE) Urine Urobilinogen (<2.0) EU/dL Ur Leukocyte Esterase (NEGATIVE) Urine RBC (0-2/HPF) Urine WBC (0-5/HPF) Ur Epithelial Cells (NONE-FEW) Urine Bacteria (NEGATIVE) Result Diagrams: 05/06/19 06:01 05/06/19 06:01 Orders Last 24hrs: Active Orders 24 hr Category Date Time Status Admission Status [Patient Status] [ADT] Stat ADT 05/05/19 20:38 Active Blood Glucose Check, Bedside [RC] TIDMEALS Care 05/06/19 06:50 Active Blood Glucose Check, Bedside [RC] TIDMEALS Care 05/06/19 06:50 Inactive Cardiac Monitoring [RC] CONTINUOUS Care 05/06/19 06:50 Inactive Communication Order [RC] ROUTINE Care 05/06/19 10:09 Active Daily Weight [Height and Weight] [RC] DAILY Care 05/06/19 08:05 Active Diabetes Education [RC] Click to Edit Care 05/06/19 06:54 Active EKG Documentation Completion [RC] STAT Care 05/05/19 19:08 Active Intake and Output Strict [RC] Q12H Care 05/06/19 08:05 Active Oxygen Therapy [RC] PRN Care 05/06/19 06:50 Active RT Aerosol Therapy [RC] ASDIRECTED Care 05/05/19 19:11 Active Telemetry Monitoring [Cardiac Monitoring] [RC] Q8H Care 05/05/19 20:49 Active Up With Assistance [RC] ASDIRECTED Care 05/06/19 06:50 Active VTE/DVT Education [RC] PER UNIT ROUTINE Care 05/06/19 06:50 Active Vital Signs [RC] Q4H Care 05/06/19 06:50 Active Consult to Wound Care Services [CONS] Routine Cons 05/06/19 09:24 Active OT Evaluation and Treatment [CONS] Routine Cons 05/06/19 06:50 Active PT Evaluation and Treatment [CONS] Routine Cons 05/06/19 06:50 Active Heart Healthy Diet [DIET] Diet 05/06/19 Breakfast Active Echo Comp wo Cont [US] Routine Exams 05/06/19 14:10 Taken CBC WITH AUTO DIFF [HEME] AM Lab 05/07/19 05:11 Ordered COMPREHENSIVE METABOLIC PN,CMP [CHEM] AM Lab 05/07/19 05:11 Ordered CULTURE URINE [RM] Stat Lab 05/05/19 21:05 Received Acetaminophen [Tylenol] Med 05/05/19 22:00 Active 650 mg PO Q6H PRN Carvedilol [Coreg] Med 05/06/19 08:00 Active 12.5 mg PO BIDMEALS Furosemide [Lasix] Med 05/06/19 08:03 Active 60 mg IVPUSH BIDDIURETIC Heparin Sodium Med 05/06/19 07:00 Active 5,000 units SUBCUT Q8H Insulin Aspart [NovoLOG] Med 05/06/19 07:30 Active See Protocol SUBCUT TIDAC Insulin Glarg,Human.Rec.Analog [LantUS Solostar] Med 05/06/19 09:30 Active 30 units SUBCUT DAILY Losartan [Cozaar] Med 05/07/19 09:00 Active 50 mg PO DAILY Patient's Own Medication [Ptom] Med 05/06/19 11:30 Active 1 each PO BID Patient's Own Medication [Ptom] Med 05/06/19 16:00 Active 1 each PO BID Rosuvastatin [Crestor] Med 05/06/19 21:00 Active 20 mg PO BEDTIME Sennosides [Senna] Med 05/06/19 21:00 Active 8.6 mg PO BEDTIME Sodium Chloride 0.9% [Saline Flush] Med 05/05/19 22:02 Active 10 ml FLUSH ASDIRECTED PRN Sodium Chloride 0.9% [Saline Flush] Med 05/05/19 22:02 Active 2.5 ml FLUSH ASDIRECTED PRN Convert IV to Saline Lock [OM.PC] Routine Oth 05/05/19 22:02 Ordered Glucose Management Sub Q Reflex [OM.PC] Click To Edit Oth 05/06/19 06:50 Ordered Resuscitation Status Routine Resus Stat 05/06/19 09:49 Ordered Medication Orders Acetaminophen (Tylenol) 650 mg PO Q6H PRN PRN Reason: Pain/Fever Carvedilol (Coreg) 12.5 mg PO BIDMEALS [facility] Last Admin: 05/06/19 09:51 Dose: 12.5 mg Furosemide (Lasix) 60 mg IVPUSH BIDDIURETIC [facility] Last Admin: 05/06/19 14:33 Dose: 60 mg Admin: 05/06/19 09:52 Dose: 60 mg Heparin Sodium (Porcine) (Heparin Sodium) 5,000 units SUBCUT Q8H [facility] Last Admin: 05/06/19 14:32 Dose: 5,000 units Admin: 05/06/19 07:46 Dose: 5,000 units Insulin Aspart (Novolog) 0 unit SUBCUT TIDAC [facility]; Protocol Last Admin: 05/06/19 13:28 Dose: 8 units Admin: 05/06/19 07:45 Dose: 4 units Insulin Glargine (Lantus Solostar) 30 units SUBCUT DAILY [facility] Last Admin: 05/06/19 10:00 Dose: 30 units Losartan Potassium (Cozaar) 50 mg PO DAILY [facility] Amoxicillin 500 Mg 1 each PO BID [facility] Last Admin: 05/06/19 16:21 Dose: Amoxicillin 500 Mg 1 each PO BID [facility] Rosuvastatin Calcium (Crestor) 20 mg PO BEDTIME [facility] Senna (Senna) 8.6 mg PO BEDTIME [facility] Sodium Chloride (Saline Flush) 10 ml FLUSH ASDIRECTED PRN PRN Reason: Keep Vein Open Sodium Chloride (Saline Flush) 2.5 ml FLUSH ASDIRECTED PRN PRN Reason: Keep Vein Open
[2019-05-06] MEDS ORDERED: Finasteride 5 MG Tab PO SCH (09:00)
[2019-05-06] MEDS ORDERED: Losartan 50 MG Tab PO SCH (09:00)
[2019-05-06] MEDS ORDERED: Bumetanide 1 MG Tab PO SCH (09:00)
[2019-05-06] MEDS ORDERED: Tamsulosin 0.4 MG Cap.ER PO SCH (09:00)
[2019-05-06] MEDS: Carvedilol 12.5 MG Tab PO SCH ×2 (09:51→17:23)
[2019-05-06] MEDS: Furosemide 40 MG/4 ML VIAL IVPUSH SCH ×2 (09:52→14:33)
[2019-05-06] MEDS: Insulin Glargine,Human Rec. Analog 100 Units/ML 3 ML Pen SUBCUT SCH (10:00)
--- NOTE | 2019-05-06 12:12 | CT ---
INDICATION: Congestive failure, cough TECHNIQUE: CT chest without contrast. COMPARISON: Chest radiograph May 05, 2019 FINDINGS: Images are limited by patient motion artifact. Cardiovascular structures: Cardiomegaly. Coronary artery disease. Status post median sternotomy. Right-sided AICD with lead tips in the right atrium and right ventricle. Mild prominence of the pulmonary vasculature. Ascending aortic aneurysm measuring 5.6 cm in diameter. Mediastinum and adin: 1.1 cm AP window lymph node. Lungs: There is mild subpleural fibrosis. No focal consolidation. Pleura and pericardium: Small bilateral pleural effusions. Chest wall and axilla: No mass or adenopathy. Mild anasarca. Upper abdomen: Cholelithiasis. Trace amount of ascites. Bones: Unremarkable for age.. IMPRESSION: Images are limited by patient motion artifact. Cardiomegaly with pulmonary venous congestion. Small bilateral pleural effusions. Mild subpleural fibrosis. AP window lymphadenopathy is likely reactive. Coronary artery disease. Ascending aortic aneurysm measuring 5.6 cm in diameter. Cholelithiasis. Mild anasarca and trace amount of ascites. Please note that all CT scans at this facility use dose modulation, iterative reconstruction, and/or weight-based dosing when appropriate to reduce radiation dose to as low as reasonably achievable. Dictated by Melina Contreras MD @ May 06 2019 12:11PM Signed by Dr. Melina Contreras @ May 06 2019 12:11PM
--- NOTE | 2019-05-06 15:28 | PCM.SN ---
<Sowmya Anand M - Last Filed: 05/06/19 15:35> - Free Text/Narrative Note: Chest CT results noted 5.6 AAA. This was unknown to family and patient. I spoke with Veronique and daughter Rose Marie regarding findings. I also spoke with Timothy so he is aware of this. I did call Dr Sears, cardiothoracic surgeon in [place]. He recommended outpatient follow up. No urgent or emergent need for surgery or that he would even recommend surgery at Timothy's age and history of CABG. Will send referral for Dr Sears for outpatient follow up. <Tera Muhammad M - Last Filed: 05/06/19 16:33> - Free Text/Narrative Note: I have seen and examined the patient independently of Sowmya Anand CNP. I have reviewed and agree with the plan of care as outlined for this patient by her. I have discussed the case with her. Please see orders.
[2019-05-06] MEDS: AMOXICILLIN 500 MG PO SCH ×4 (16:21→22:00)
[2019-05-06] MEDS: Rosuvastatin 10 MG Tab PO SCH (20:42)
[2019-05-06] MEDS: Sennosides 8.6 MG Tab PO SCH (20:42)
[2019-05-06] MEDS ORDERED: Insulin Glargine,Human Rec. Analog 100 Units/ML 3 ML Pen SUBCUT SCH (21:00)
[2019-05-07 06:43] LABS: CARBON DIOXIDE,CO2 26.2 mmol/L (21.0-32.0); POTASSIUM,K 4.3 mmol/L (3.5-5.1)
[2019-05-07] MEDS: Heparin Sodium 5,000 Units/ML Vial SUBCUT SCH ×3 (06:47→23:52)
[2019-05-07] MEDS: Insulin Aspart 100 Units/ML 3 ML Pen SUBCUT SCH ×3 (06:51→17:57)
[2019-05-07] MEDS: Losartan 50 MG Tab PO SCH (08:17)
[2019-05-07] MEDS: Carvedilol 12.5 MG Tab PO SCH ×2 (08:17→17:56)
[2019-05-07] MEDS: Furosemide 40 MG/4 ML VIAL IVPUSH SCH ×2 (08:18→13:46)
[2019-05-07] MEDS: AMOXICILLIN 500 MG PO SCH ×2 (08:22→21:28)
[2019-05-07] MEDS: Insulin Glargine,Human Rec. Analog 100 Units/ML 3 ML Pen SUBCUT SCH (08:23)
--- NOTE | 2019-05-07 14:57 | PCM.PN ---
<Sara Moser - Last Filed: 05/07/19 14:59> - General Info Date of Service: 05/07/19 Subjective Update: patient seen at bedside: endorses some mild shortness of breath; states no acute changes since yesterday. Denies any fever, chills, body aches, chest pain , worsening of shortness of breath. in room understands outpatient referral for abdominal aortic aneurysm. Also mentions chronic wound of left lower extremity seems stable. patient otherwise has no other questions at this time. - Review of Systems General: Denies: Fever, Weakness Pulmonary: Reports: Shortness of Breath, Cough Cardiovascular: Denies: Chest Pain, Palpitations Gastrointestinal: Denies: Abdominal Pain, Constipation, Diarrhea, Nausea, Vomiting Neurological: Denies: Confusion, Dizziness, Headache Psychiatric: Denies: Confusion - Patient Data Vitals - Most Recent: Last Vital Signs Temp 97.1 F 05/07/19 11:00 Pulse 56 L 05/07/19 11:00 Resp 18 05/07/19 11:00 BP 136/63 05/07/19 11:00 Pulse Ox 98 05/07/19 11:00 Weight - Most Recent: 135.652 kg I&O - Last 24 Hours: Intake & Output 05/06/19 05/07/19 05/07/19 22:59 06:59 14:59 Intake Total 660 700 Output Total 600 480 Balance 60 220 Lab Results Last 24 Hours: Laboratory Results - last 24 hr 05/06/19 05/07/19 05/07/19 Range/Units 17:14 06:00 06:00 WBC 6.86 (4.0-11.0) K/uL RBC 3.25 L (4.50-5.90) M/uL Hgb 10.6 L (13.0-17.0) g/dL Hct 33.4 L (38.0-50.0) % MCV 102.8 H (80.0-98.0) fL MCH 32.6 H (27.0-32.0) pg MCHC 31.7 (31.0-37.0) g/dL RDW Std Deviation 58.5 (28.0-62.0) fl RDW Coeff of Anjana 16 H (11.0-15.0) % Plt Count 144 L (150-400) K/uL MPV 10.70 (7.40-12.00) fL Neut % (Auto) 68.9 (48.0-80.0) % Lymph % (Auto) 17.6 (16.0-40.0) % [place] % (Auto) 12.4 (0.0-15.0) % Eos % (Auto) 1.0 (0.0-7.0) % Baso % (Auto) 0.1 (0.0-1.5) % Neut # (Auto) 4.7 (1.4-5.7) K/uL Lymph # (Auto) 1.2 (0.6-2.4) K/uL [place] # (Auto) 0.9 H (0.0-0.8) K/uL Eos # (Auto) 0.1 (0.0-0.7) K/uL Baso # (Auto) 0.0 (0.0-0.1) K/uL Nucleated RBC % 0.0 /100WBC Nucleated RBCs # 0 K/uL Sodium 141 (136-148) mmol/L Potassium 4.3 (3.5-5.1) mmol/L Chloride 104 (98-107) mmol/L Carbon Dioxide 26.2 (21.0-32.0) mmol/L BUN 35 H (7.0-18.0) mg/dL Creatinine 1.7 H (0.8-1.3) mg/dL Est Cr Clr Drug Dosing 31.01 mL/min Estimated GFR (MDRD) 38.2 ml/min Glucose 176 H (74-106) mg/dL POC Glucose 364 H (60-110) mg/dL Calcium 8.2 L (8.5-10.1) mg/dL Total Bilirubin 0.7 (0.2-1.0) mg/dL AST 23 (15-37) IU/L ALT 16 (14-63) IU/L Alkaline Phosphatase 141 H (46-116) U/L Total Protein 5.6 L (6.4-8.2) g/dL Albumin 2.8 L (3.4-5.0) g/dL Globulin 2.8 (2.6-4.0) g/dL Albumin/Globulin Ratio 1.0 (0.9-1.6) 09/07/19 09/07/19 Range/Units 06:25 11:22 WBC (4.0-11.0) K/uL RBC (4.50-5.90) M/uL Hgb (13.0-17.0) g/dL Hct (38.0-50.0) % MCV (80.0-98.0) fL MCH (27.0-32.0) pg MCHC (31.0-37.0) g/dL RDW Std Deviation (28.0-62.0) fl RDW Coeff of Anjana (11.0-15.0) % Plt Count (150-400) K/uL MPV (7.40-12.00) fL Neut % (Auto) (48.0-80.0) % Lymph % (Auto) (16.0-40.0) % [place] % (Auto) (0.0-15.0) % Eos % (Auto) (0.0-7.0) % Baso % (Auto) (0.0-1.5) % Neut # (Auto) (1.4-5.7) K/uL Lymph # (Auto) (0.6-2.4) K/uL [place] # (Auto) (0.0-0.8) K/uL Eos # (Auto) (0.0-0.7) K/uL Baso # (Auto) (0.0-0.1) K/uL Nucleated RBC % /100WBC Nucleated RBCs # K/uL Sodium (136-148) mmol/L Potassium (3.5-5.1) mmol/L Chloride (98-107) mmol/L Carbon Dioxide (21.0-32.0) mmol/L BUN (7.0-18.0) mg/dL Creatinine (0.8-1.3) mg/dL Est Cr Clr Drug Dosing mL/min Estimated GFR (MDRD) ml/min Glucose (74-106) mg/dL POC Glucose 185 H 196 H (60-110) mg/dL Calcium (8.5-10.1) mg/dL Total Bilirubin (0.2-1.0) mg/dL AST (15-37) IU/L ALT (14-63) IU/L Alkaline Phosphatase (46-116) U/L Total Protein (6.4-8.2) g/dL Albumin (3.4-5.0) g/dL Globulin (2.6-4.0) g/dL Albumin/Globulin Ratio (0.9-1.6) Med Orders - Current: Current Medications Acetaminophen (Tylenol) 650 mg PO Q6H PRN PRN Reason: Pain/Fever Carvedilol (Coreg) 12.5 mg PO BIDMEALS [facility] Last Admin: 05/07/19 08:17 Dose: Not Given Furosemide (Lasix) 60 mg IVPUSH BIDDIURETIC [facility] Last Admin: 05/07/19 13:46 Dose: 60 mg Heparin Sodium (Porcine) (Heparin Sodium) 5,000 units SUBCUT Q8H [facility] Last Admin: 05/07/19 06:47 Dose: 5,000 units Insulin Aspart (Novolog) 0 unit SUBCUT TIDAC [facility]; Protocol Last Admin: 05/07/19 11:57 Dose: 2 units Insulin Glargine (Lantus Solostar) 30 units SUBCUT DAILY [facility] Last Admin: 05/07/19 08:23 Dose: 30 units Losartan Potassium (Cozaar) 50 mg PO DAILY [facility] Last Admin: 05/07/19 08:17 Dose: 50 mg Amoxicillin 500 Mg 1 each PO BID [facility] Last Admin: 05/07/19 08:22 Dose: 1 each Rosuvastatin Calcium (Crestor) 20 mg PO BEDTIME [facility] Last Admin: 05/06/19 20:42 Dose: 20 mg Senna (Senna) 8.6 mg PO BEDTIME [facility] Last Admin: 05/06/19 20:42 Dose: 8.6 mg Sodium Chloride (Saline Flush) 10 ml FLUSH ASDIRECTED PRN PRN Reason: Keep Vein Open Sodium Chloride (Saline Flush) 2.5 ml FLUSH ASDIRECTED PRN PRN Reason: Keep Vein Open Discontinued Medications Albuterol/Ipratropium (Duoneb 3.0-0.5 Mg/3 Ml) 3 ml NEB ONETIME ONE Stop: 05/05/19 19:12 Last Admin: 05/05/19 19:27 Dose: 3 ml Bumetanide (Bumex) 2 mg PO DAILY [facility] Finasteride (Proscar) 5 mg PO DAILY [facility] Last Admin: 05/06/19 09:51 Dose: 5 mg Furosemide (Lasix) 40 mg IVPUSH NOW ONE Stop: 05/05/19 19:12 Last Admin: 05/05/19 20:07 Dose: 40 mg Insulin Glargine (Lantus Solostar) 30 units SUBCUT BEDTIME [facility] Losartan Potassium (Cozaar) 50 mg PO BID [facility] Last Admin: 05/06/19 09:52 Dose: 50 mg Methylprednisolone Sodium Succinate (Solu-Medrol) 125 mg IVPUSH ONETIME ONE Stop: 05/05/19 19:12 Last Admin: 05/05/19 20:01 Dose: 125 mg Oxycodone HCl (Oxycodone) 5 mg PO Q4H PRN PRN Reason: Pain Amoxicillin 500 Mg 1 each PO BID [facility] Last Admin: 05/06/19 22:00 Dose: Not Given Tamsulosin HCl (Flomax) 0.4 mg PO DAILY [facility] Last Admin: 05/06/19 09:51 Dose: 0.4 mg - Exam Quality Assessment: Supplemental Oxygen General: Alert, Oriented, Cooperative HEENT: EOMI, Other (hard of hearing) Neck: Supple Lungs: Decreased Breath Sounds (right greater than the left lower lung bases. No crackles appreciated at this time) Cardiovascular: Regular Rate, Regular Rhythm GI/Abdominal Exam: Soft, Non-Tender, Other (obese) Extremities: Pedal Edema Skin: Other (chronic healing wound of left lower extremity: unchanged from yesterday. Lower extremity skin tense and edematous bilaterally. Upper extremity mild swelling.) Neurological: No New Focal Deficit Psy/Mental Status: Alert - Problem List Review Problem List Initiated/Reviewed/Updated: Yes - My Orders Last 24 Hours: My Active Orders 05/07/19 Lunch Fluid Restriction [DIET] 05/08/19 05:11 Chest 2V [CR] AM - Plan Plan:: This 88 year old male admitted with CHF exacerbation 1. CHF exacerbation: Continue Lasix 60 mg IV BID. Strict I/O daily weights. Low Na diet/diabetic with 1 L FR. Awaiting officeial ECHO report. Elevate legs. Oxygen PRN to keep sats 90%, on chronic oxygen intermittently at home. 2. DM Type 2: Novolog SSI, continue Lantus, but will decrease dose to 30 units from 40 while in the hospital. Monitor TIDAC. 3. HTN: Continue Losartan, Coreg. Monitor with increase in Diuresis. 4. 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 Wound care consult. VTE prophylaxis: Heparin. Dispo: 2-3 days pending improvement. <Tera Muhammad - Last Filed: 05/07/19 15:51> - General Info Admission Dx/Problem (Free Text): I have examined the patient independently of medical insurance clerk, Dr. Ehsan MD. I have discussed the case with him. I have reviewed and agree with the plan of care as outlined for the patient by him. Please see orders. - Patient Data Vitals - Most Recent: Last Vital Signs Temp 36.2 C 05/07/19 11:00 Pulse 56 L 05/07/19 11:00 Resp 18 05/07/19 11:00 BP 136/63 05/07/19 11:00 Pulse Ox 98 05/07/19 11:00 I&O - Last 24 Hours: Intake & Output 05/07/19 05/07/19 05/07/19 06:59 14:59 22:59 Intake Total 700 Output Total 480 Balance 220 Lab Results Last 24 Hours: Laboratory Results - last 24 hr 05/06/19 05/07/19 05/07/19 Range/Units 17:14 06:00 06:00 WBC 6.86 (4.0-11.0) K/uL RBC 3.25 L (4.50-5.90) M/uL Hgb 10.6 L (13.0-17.0) g/dL Hct 33.4 L (38.0-50.0) % MCV 102.8 H (80.0-98.0) fL MCH 32.6 H (27.0-32.0) pg MCHC 31.7 (31.0-37.0) g/dL RDW Std Deviation 58.5 (28.0-62.0) fl RDW Coeff of Anjana 16 H (11.0-15.0) % Plt Count 144 L (150-400) K/uL MPV 10.70 (7.40-12.00) fL Neut % (Auto) 68.9 (48.0-80.0) % Lymph % (Auto) 17.6 (16.0-40.0) % [place] % (Auto) 12.4 (0.0-15.0) % Eos % (Auto) 1.0 (0.0-7.0) % Baso % (Auto) 0.1 (0.0-1.5) % Neut # (Auto) 4.7 (1.4-5.7) K/uL Lymph # (Auto) 1.2 (0.6-2.4) K/uL [place] # (Auto) 0.9 H (0.0-0.8) K/uL Eos # (Auto) 0.1 (0.0-0.7) K/uL Baso # (Auto) 0.0 (0.0-0.1) K/uL Nucleated RBC % 0.0 /100WBC Nucleated RBCs # 0 K/uL Sodium 141 (136-148) mmol/L Potassium 4.3 (3.5-5.1) mmol/L Chloride 104 (98-107) mmol/L Carbon Dioxide 26.2 (21.0-32.0) mmol/L BUN 35 H (7.0-18.0) mg/dL Creatinine 1.7 H (0.8-1.3) mg/dL Est Cr Clr Drug Dosing 31.01 mL/min Estimated GFR (MDRD) 38.2 ml/min Glucose 176 H (74-106) mg/dL POC Glucose 364 H (60-110) mg/dL Calcium 8.2 L (8.5-10.1) mg/dL Total Bilirubin 0.7 (0.2-1.0) mg/dL AST 23 (15-37) IU/L ALT 16 (14-63) IU/L Alkaline Phosphatase 141 H (46-116) U/L Total Protein 5.6 L (6.4-8.2) g/dL Albumin 2.8 L (3.4-5.0) g/dL Globulin 2.8 (2.6-4.0) g/dL Albumin/Globulin Ratio 1.0 (0.9-1.6) 05/07/19 05/07/19 05/07/19 Range/Units 06:25 11:22 15:33 WBC (4.0-11.0) K/uL RBC (4.50-5.90) M/uL Hgb (13.0-17.0) g/dL Hct (38.0-50.0) % MCV (80.0-98.0) fL MCH (27.0-32.0) pg MCHC (31.0-37.0) g/dL RDW Std Deviation (28.0-62.0) fl RDW Coeff of Anjana (11.0-15.0) % Plt Count (150-400) K/uL MPV (7.40-12.00) fL Neut % (Auto) (48.0-80.0) % Lymph % (Auto) (16.0-40.0) % [place] % (Auto) (0.0-15.0) % Eos % (Auto) (0.0-7.0) % Baso % (Auto) (0.0-1.5) % Neut # (Auto) (1.4-5.7) K/uL Lymph # (Auto) (0.6-2.4) K/uL [place] # (Auto) (0.0-0.8) K/uL Eos # (Auto) (0.0-0.7) K/uL Baso # (Auto) (0.0-0.1) K/uL Nucleated RBC % /100WBC Nucleated RBCs # K/uL Sodium (136-148) mmol/L Potassium (3.5-5.1) mmol/L Chloride (98-107) mmol/L Carbon Dioxide (21.0-32.0) mmol/L BUN (7.0-18.0) mg/dL Creatinine (0.8-1.3) mg/dL Est Cr Clr Drug Dosing mL/min Estimated GFR (MDRD) ml/min Glucose (74-106) mg/dL POC Glucose 185 H 196 H 271 H (60-110) mg/dL Calcium (8.5-10.1) mg/dL Total Bilirubin (0.2-1.0) mg/dL AST (15-37) IU/L ALT (14-63) IU/L Alkaline Phosphatase (46-116) U/L Total Protein (6.4-8.2) g/dL Albumin (3.4-5.0) g/dL Globulin (2.6-4.0) g/dL Albumin/Globulin Ratio (0.9-1.6) Med Orders - Current: Current Medications Acetaminophen (Tylenol) 650 mg PO Q6H PRN PRN Reason: Pain/Fever Carvedilol (Coreg) 12.5 mg PO BIDMEALS [facility] Last Admin: 05/07/19 08:17 Dose: Not Given Furosemide (Lasix) 60 mg IVPUSH BIDDIURETIC [facility] Last Admin: 05/07/19 13:46 Dose: 60 mg Heparin Sodium (Porcine) (Heparin Sodium) 5,000 units SUBCUT Q8H [facility] Last Admin: 05/07/19 15:14 Dose: 5,000 units Insulin Aspart (Novolog) 0 unit SUBCUT TIDAC [facility]; Protocol Last Admin: 05/07/19 11:57 Dose: 2 units Insulin Glargine (Lantus Solostar) 30 units SUBCUT DAILY [facility] Last Admin: 05/07/19 08:23 Dose: 30 units Losartan Potassium (Cozaar) 50 mg PO DAILY [facility] Last Admin: 05/07/19 08:17 Dose: 50 mg Amoxicillin 500 Mg 1 each PO BID [facility] Last Admin: 05/07/19 08:22 Dose: 1 each Rosuvastatin Calcium (Crestor) 20 mg PO BEDTIME [facility] Last Admin: 05/06/19 20:42 Dose: 20 mg Senna (Senna) 8.6 mg PO BEDTIME [facility] Last Admin: 05/06/19 20:42 Dose: 8.6 mg Sodium Chloride (Saline Flush) 10 ml FLUSH ASDIRECTED PRN PRN Reason: Keep Vein Open Sodium Chloride (Saline Flush) 2.5 ml FLUSH ASDIRECTED PRN PRN Reason: Keep Vein Open Discontinued Medications Albuterol/Ipratropium (Duoneb 3.0-0.5 Mg/3 Ml) 3 ml NEB ONETIME ONE Stop: 05/05/19 19:12 Last Admin: 05/05/19 19:27 Dose: 3 ml Bumetanide (Bumex) 2 mg PO DAILY [facility] Finasteride (Proscar) 5 mg PO DAILY [facility] Last Admin: 05/06/19 09:51 Dose: 5 mg Furosemide (Lasix) 40 mg IVPUSH NOW ONE Stop: 05/05/19 19:12 Last Admin: 05/05/19 20:07 Dose: 40 mg Insulin Glargine (Lantus Solostar) 30 units SUBCUT BEDTIME [facility] Losartan Potassium (Cozaar) 50 mg PO BID [facility] Last Admin: 05/06/19 09:52 Dose: 50 mg Methylprednisolone Sodium Succinate (Solu-Medrol) 125 mg IVPUSH ONETIME ONE Stop: 05/05/19 19:12 Last Admin: 05/05/19 20:01 Dose: 125 mg Oxycodone HCl (Oxycodone) 5 mg PO Q4H PRN PRN Reason: Pain Amoxicillin 500 Mg 1 each PO BID [facility] Last Admin: 05/06/19 22:00 Dose: Not Given Tamsulosin HCl (Flomax) 0.4 mg PO DAILY [facility] Last Admin: 05/06/19 09:51 Dose: 0.4 mg - My Orders Last 24 Hours: My Active Orders 05/06/19 21:00 Rosuvastatin [Crestor] 20 mg PO BEDTIME Sennosides [Senna] 8.6 mg PO BEDTIME
[2019-05-07] MEDS: Rosuvastatin 10 MG Tab PO SCH (21:28)
[2019-05-07] MEDS: Sennosides 8.6 MG Tab PO SCH ×2 (21:28→21:33)
[2019-05-08] MEDS: Heparin Sodium 5,000 Units/ML Vial SUBCUT SCH (06:42)
[2019-05-08] MEDS: Insulin Aspart 100 Units/ML 3 ML Pen SUBCUT SCH ×2 (06:44→12:10)
[2019-05-08 06:48] LABS: CARBON DIOXIDE,CO2 28.8 mmol/L (21.0-32.0); POTASSIUM,K 3.9 mmol/L (3.5-5.1)
[2019-05-08] MEDS: Furosemide 40 MG/4 ML VIAL IVPUSH SCH (08:00)
[2019-05-08] MEDS: AMOXICILLIN 500 MG PO SCH (08:29)
[2019-05-08] MEDS: Losartan 50 MG Tab PO SCH (08:29)
[2019-05-08] MEDS: Insulin Glargine,Human Rec. Analog 100 Units/ML 3 ML Pen SUBCUT SCH (08:31)
[2019-05-08] MEDS: Carvedilol 12.5 MG Tab PO SCH (08:34)
[2019-05-08 08:35] VITALS: PULSE 60
--- NOTE | 2019-05-08 08:46 | CR ---
Indication: Heart failure. Technique: PA and lateral views the chest were obtained. Comparison: May 05, 2019. Findings: The heart is enlarged. Increased interstitial opacities are identified bilaterally. Right-sided AICD is identified. Median sternotomy wires are identified. No pneumothorax is identified. Impression: Stable chest x-ray Dictated by Marilyn Anthony MD @ May 08 2019 8:43AM Signed by Dr. Marilyn Anthony @ May 08 2019 8:44AM
--- NOTE | 2019-05-08 10:30 | PCM.DCSUM1 ---
Discharge Summary - Hospital Course HPI Initial Comments: Admission Date: Discharge Date: Admission Diagnosis: 1. CHF exacerbation 2. DMII 3. HTN 4. Chronic cellulitis left leg Discharge Diagnosis: 1. CHF exacerbation 2. DMII 3. HTN 4. Chronic cellulitis left leg Procedures: None Consults: None Hospital Course: The patient is an 88-year-old male with past medical history of type 2 diabetes, hypertension, CHF, CAD, and chronic kidney disease who is oxygen dependent at home, who presented to the ER with shortness of breath and lower extremity edema. In the ER, lab work showed a creatinine of 1.5 which is near his baseline, a negative troponin, a BNP of 358. His chest x-ray showed cardiomegaly with pulmonary venous congestion. EKG was a v-paced in sinus. In the ER he was given Solu-Medrol, Lasix and IV fluids. He was admitted to the medical surgical floor where his CHF exacerbation was treated with IV Lasix, daily weights,and fluid restriction. There was no recent echo in the chart. One was obtained but results were pending at time of discharge. Over the course of the stay, he was down around 5 kg since admission. His labs were monitored daily and his chronic kidney disease stayed at baseline. For his type 2 diabetes, he was continued on insulin and Accu-Cheks. For his hypertension, he was continued on losartan, but his Coreg was held due to low heart rate. He was continued on amoxicillin for his chronic cellulitis. By day of discharge, the patient stated he was ready to go home. He does have home health and would like to continue that. Disposition: Home with continuation of home health Discharge Condition: vitals stable, tolerating oral diet, ambulating without difficulty, symptom improvement Discharge Instructions: heart healthy diet as tolerated, Fluid restriction of 2 L, activity as tolerated, take medications as prescribed. Symptoms to report to physician include fever/chills, chest pain, shortness of breath, abdominal pain, erythema, drainage/discharge, edema or not improving as expected. Discharge Medications: Bumetanide [Bumex] 2 mg PO DAILY Insulin Aspart [Novolog Flexpen] 10 units SUBCUT BID Insulin Glarg,Human.Rec.Analog [Lantus] 40 unit SUBCUT DAILY Rosuvastatin [Crestor] 20 mg PO BEDTIME Aspirin [Halfprin] 81 mg PO DAILY Losartan [Cozaar] 50 mg PO DAILY Acetaminophen/HYDROcodone [Norton 325-7.5 MG] 1 tab PO TID PRN Sennosides [Senna] 1 tab PO BEDTIME PRN Amoxicillin 1,000 mg PO BID Follow-up: 1. PCP- Dr. Echevarria - discuss Coreg and echo results - Discharge Data Discharge Date: 05/08/19 Discharge Disposition: Home, W Home Health Agency Condition: Stable - Patient Summary/Data Consults: Consultations 05/06/19 06:50 OT Evaluation and Treatment [CONS] Routine PT Evaluation and Treatment [CONS] Routine 05/06/19 09:24 Consult to Wound Care Services [CONS] Routine - Patient Instructions Diet: Heart Healthy Diet, Low Sodium Fluid Restriction: 2000 mL Activity: As Tolerated Showering/Bathing: May Shower Notify Provider of: Fever, Increased Pain, Swelling and Redness, Drainage, Nausea and/or Vomiting Other/Special Instructions: Additional symptoms include chest pain, shortness of breath, or abdominal pain. Wear oxygen at home as prescribed. We are holding your Coreg due to low heart rate. Follow up with PCP to discuss when to restart this medication. - Discharge Plan *PRESCRIPTION DRUG MONITORING PROGRAM REVIEWED*: No *COPY OF PRESCRIPTION DRUG MONITORING REPORT IN PATIENT ELENITA: No Home Medications: Home Meds Bumetanide [Bumex] 2 mg PO DAILY 08/26/14 [History] Insulin Aspart [Novolog Flexpen] 10 units SUBCUT BID 08/26/14 [History] Insulin Glarg,Human.Rec.Analog [Lantus] 40 unit SUBCUT DAILY 08/26/14 [History] Rosuvastatin [Crestor] 20 mg PO BEDTIME 08/26/14 [History] Aspirin [Halfprin] 81 mg PO DAILY 03/13/17 [History] Losartan [Cozaar] 50 mg PO DAILY 03/13/17 [History] Acetaminophen/HYDROcodone [Norton 325-7.5 MG] 1 tab PO TID PRN 05/05/19 [History] Sennosides [Senna] 1 tab PO BEDTIME PRN 05/05/19 [History] Amoxicillin 1,000 mg PO BID 05/06/19 [History] Patient Handouts: Heart Failure, [id number] Referrals: Prince Echevarria MD [Primary Care Provider] - 05/16/19 3:00 pm Burt Alvarado MD [Consulting Physician] - 05/10/19 3:15 pm - Discharge Summary/Plan Comment DC Time >30 min.: No - Patient Data Vitals - Most Recent: Last Vital Signs Temp 97.4 F 05/08/19 07:30 Pulse 60 05/08/19 08:34 Resp 24 H 05/08/19 07:30 BP 118/64 05/08/19 08:29 Pulse Ox 99 05/08/19 07:30 Weight - Most Recent: 134.808 kg I&O - Last 24 hours: Intake & Output 05/07/19 05/08/19 05/08/19 22:59 06:59 14:59 Intake Total 900 580 Output Total 550 620 Balance 350 -40 Lab Results - Last 24 hrs: Laboratory Results - last 24 hr 05/07/19 05/07/19 05/07/19 Range/Units 11:22 15:33 17:24 WBC (4.0-11.0) K/uL RBC (4.50-5.90) M/uL Hgb (13.0-17.0) g/dL Hct (38.0-50.0) % MCV (80.0-98.0) fL MCH (27.0-32.0) pg MCHC (31.0-37.0) g/dL RDW Std Deviation (28.0-62.0) fl RDW Coeff of Anjana (11.0-15.0) % Plt Count (150-400) K/uL MPV (7.40-12.00) fL Neut % (Auto) (48.0-80.0) % Lymph % (Auto) (16.0-40.0) % [place] % (Auto) (0.0-15.0) % Eos % (Auto) (0.0-7.0) % Baso % (Auto) (0.0-1.5) % Neut # (Auto) (1.4-5.7) K/uL Lymph # (Auto) (0.6-2.4) K/uL [place] # (Auto) (0.0-0.8) K/uL Eos # (Auto) (0.0-0.7) K/uL Baso # (Auto) (0.0-0.1) K/uL Nucleated RBC % /100WBC Nucleated RBCs # K/uL Sodium (136-148) mmol/L Potassium (3.5-5.1) mmol/L Chloride (98-107) mmol/L Carbon Dioxide (21.0-32.0) mmol/L BUN (7.0-18.0) mg/dL Creatinine (0.8-1.3) mg/dL Est Cr Clr Drug Dosing mL/min Estimated GFR (MDRD) ml/min Glucose (74-106) mg/dL POC Glucose 196 H 271 H 221 H (60-110) mg/dL Calcium (8.5-10.1) mg/dL Total Bilirubin (0.2-1.0) mg/dL AST (15-37) IU/L ALT (14-63) IU/L Alkaline Phosphatase (46-116) U/L Total Protein (6.4-8.2) g/dL Albumin (3.4-5.0) g/dL Globulin (2.6-4.0) g/dL Albumin/Globulin Ratio (0.9-1.6) 05/08/19 05/08/19 05/08/19 Range/Units 05:58 06:10 06:10 WBC 7.00 (4.0-11.0) K/uL RBC 3.42 L (4.50-5.90) M/uL Hgb 10.9 L (13.0-17.0) g/dL Hct 35.2 L (38.0-50.0) % MCV 102.9 H (80.0-98.0) fL MCH 31.9 (27.0-32.0) pg MCHC 31.0 (31.0-37.0) g/dL RDW Std Deviation 58.8 (28.0-62.0) fl RDW Coeff of Anjana 16 H (11.0-15.0) % Plt Count 151 (150-400) K/uL MPV 10.50 (7.40-12.00) fL Neut % (Auto) 59.8 (48.0-80.0) % Lymph % (Auto) 22.0 (16.0-40.0) % [place] % (Auto) 13.0 (0.0-15.0) % Eos % (Auto) 4.9 (0.0-7.0) % Baso % (Auto) 0.3 (0.0-1.5) % Neut # (Auto) 4.2 (1.4-5.7) K/uL Lymph # (Auto) 1.5 (0.6-2.4) K/uL [place] # (Auto) 0.9 H (0.0-0.8) K/uL Eos # (Auto) 0.3 (0.0-0.7) K/uL Baso # (Auto) 0.0 (0.0-0.1) K/uL Nucleated RBC % 0.0 /100WBC Nucleated RBCs # 0 K/uL Sodium 141 (136-148) mmol/L Potassium 3.9 (3.5-5.1) mmol/L Chloride 103 (98-107) mmol/L Carbon Dioxide 28.8 (21.0-32.0) mmol/L BUN 34 H (7.0-18.0) mg/dL Creatinine 1.6 H (0.8-1.3) mg/dL Est Cr Clr Drug Dosing 32.95 mL/min Estimated GFR (MDRD) 41.0 ml/min Glucose 140 H (74-106) mg/dL POC Glucose 140 H (60-110) mg/dL Calcium 8.7 (8.5-10.1) mg/dL Total Bilirubin 1.0 (0.2-1.0) mg/dL AST 31 (15-37) IU/L ALT 19 (14-63) IU/L Alkaline Phosphatase 151 H (46-116) U/L Total Protein 6.3 L (6.4-8.2) g/dL Albumin 3.1 L (3.4-5.0) g/dL Globulin 3.2 (2.6-4.0) g/dL Albumin/Globulin Ratio 1.0 (0.9-1.6) Med Orders - Current: Current Medications Acetaminophen (Tylenol) 650 mg PO Q6H PRN PRN Reason: Pain/Fever Carvedilol (Coreg) 12.5 mg PO BIDMEALS [facility] Last Admin: 05/08/19 08:34 Dose: Not Given Furosemide (Lasix) 60 mg IVPUSH BIDDIURETIC HUAN Last Admin: 05/08/19 08:00 Dose: 60 mg Heparin Sodium (Porcine) (Heparin Sodium) 5,000 units SUBCUT Q8H [facility] Last Admin: 05/08/19 06:42 Dose: 5,000 units Insulin Aspart (Novolog) 0 unit SUBCUT TIDAC [facility]; Protocol Last Admin: 05/08/19 06:44 Dose: Not Given Insulin Glargine (Lantus Solostar) 30 units SUBCUT DAILY [facility] Last Admin: 05/08/19 08:31 Dose: 30 units Losartan Potassium (Cozaar) 50 mg PO DAILY [facility] Last Admin: 05/08/19 08:29 Dose: 50 mg Amoxicillin 500 Mg 1 each PO BID [facility] Last Admin: 05/08/19 08:29 Dose: 1 each Rosuvastatin Calcium (Crestor) 20 mg PO BEDTIME [facility] Last Admin: 05/07/19 21:28 Dose: 20 mg Senna (Senna) 8.6 mg PO BEDTIME [facility] Last Admin: 05/07/19 21:33 Dose: Not Given Sodium Chloride (Saline Flush) 10 ml FLUSH ASDIRECTED PRN PRN Reason: Keep Vein Open Sodium Chloride (Saline Flush) 2.5 ml FLUSH ASDIRECTED PRN PRN Reason: Keep Vein Open Discontinued Medications Albuterol/Ipratropium (Duoneb 3.0-0.5 Mg/3 Ml) 3 ml NEB ONETIME ONE Stop: 05/05/19 19:12 Last Admin: 05/05/19 19:27 Dose: 3 ml Bumetanide (Bumex) 2 mg PO DAILY [facility] Finasteride (Proscar) 5 mg PO DAILY [facility] Last Admin: 05/06/19 09:51 Dose: 5 mg Furosemide (Lasix) 40 mg IVPUSH NOW ONE Stop: 05/05/19 19:12 Last Admin: 05/05/19 20:07 Dose: 40 mg Insulin Glargine (Lantus Solostar) 30 units SUBCUT BEDTIME [facility] Losartan Potassium (Cozaar) 50 mg PO BID [facility] Last Admin: 05/06/19 09:52 Dose: 50 mg Methylprednisolone Sodium Succinate (Solu-Medrol) 125 mg IVPUSH ONETIME ONE Stop: 05/05/19 19:12 Last Admin: 05/05/19 20:01 Dose: 125 mg Oxycodone HCl (Oxycodone) 5 mg PO Q4H PRN PRN Reason: Pain Amoxicillin 500 Mg 1 each PO BID [facility] Last Admin: 05/06/19 22:00 Dose: Not Given Tamsulosin HCl (Flomax) 0.4 mg PO DAILY [facility] Last Admin: 05/06/19 09:51 Dose: 0.4 mg
[2019-05-08 12:14] VITALS: BP 131/65
--- NOTE | 2019-05-11 16:03 | ECHO ---
The echocardiogram report can be seen in this patient's EMR (Electronic Medical Record) in the REPORTS section. The echocardiogram report has also been scanned into PACS and can be seen there as well. [email or web address]
== END 2019-05-08 13:00 | disposition home health service (06) | DRG 291 ==
LOC: MW.ED 19:05 → MW.MS 21:03
PROVIDERS: ADMIT Internal Medicine; ATTEND Internal Medicine
DX: I13.0 Hypertensive heart and chronic kidney disease with heart failure and stage 1 through stage 4 chronic kidney disease, or unspecified chronic kidney disease (principal); I11.0 Hypertensive heart disease with heart failure; I50.23 Acute on chronic systolic (congestive) heart failure; N28.9 Disorder of kidney and ureter, unspecified; L03.116 Cellulitis of left lower limb; Z68.41 Body mass index [BMI] 40.0-44.9, adult; E11.22 Type 2 diabetes mellitus with diabetic chronic kidney disease; L40.0 Psoriasis vulgaris; G47.33 Obstructive sleep apnea (adult) (pediatric); E11.9 Type 2 diabetes mellitus without complications; Z86.14 Personal history of Methicillin resistant Staphylococcus aureus infection; N18.3 Chronic kidney disease, stage 3 (moderate); H91.90 Unspecified hearing loss, unspecified ear; H54.7 Unspecified visual loss; I25.10 Atherosclerotic heart disease of native coronary artery without angina pectoris; I48.91 Unspecified atrial fibrillation; E78.00 Pure hypercholesterolemia, unspecified; M19.90 Unspecified osteoarthritis, unspecified site; E11.622 Type 2 diabetes mellitus with other skin ulcer; L98.499 Non-pressure chronic ulcer of skin of other sites with unspecified severity; E66.01 Morbid (severe) obesity due to excess calories; N40.0 Benign prostatic hyperplasia without lower urinary tract symptoms; Z79.82 Long term (current) use of aspirin; I25.2 Old myocardial infarction; Z79.4 Long term (current) use of insulin; Z79.2 Long term (current) use of antibiotics; Z79.899 Other long term (current) drug therapy; Z86.73 Personal history of transient ischemic attack (TIA), and cerebral infarction without residual deficits; Z90.89 Acquired absence of other organs; Z95.1 Presence of aortocoronary bypass graft; Z99.81 Dependence on supplemental oxygen; Z87.891 Personal history of nicotine dependence; Z95.810 Presence of automatic (implantable) cardiac defibrillator
CPT/HCPCS: 36415; 71045; 80053; 83880; 84484; 85025; 85610; 87088 ×2; 93005; 94640; 96374; 96375; 99285; J1940; J2930; 71046; 71046-26; 71250; 71250-26; 80048; 81001; 82962; 87086; 87186; 93306; 97161-GP; A9270-GY; J1644; J1815-GY; J7620-GY